=== PATIENT | female | born 1960 | race Caucasian/White ===

== ENCOUNTER → 2018-03-11 12:39 | Outpatient (CLI) | payer OTHER, SELFPAY ==
[2018-03-11 12:43] LABS: Red Blood Cells-Urine 0 SEEN /hpf (0-5); White Blood Cells 0 SEEN /hpf (0-5)
[2018-03-11 15:38] LABS: Color, Urine Yellow (Yellow); Glucose, Dipstick Normal (Normal); Ketone-Dipstick 5 mg/dl (Negative); Leukocyte Esterase-Dipstick Negative /ul (Negative); Nitrite-Dipstick Negative (Negative); Occult Blood-Urine Negative /ul (Negative); Protein-Dipstick 15 mg/dl (Negative); Urine Bilirubin Dipstick Negative (Negative); Urine Clarity Sl. Cloudy (Clear); Urine Urobilinogen Normal (Normal)
[2018-03-11 15:48] LABS: Prothrombin Time (Protime)PT. 13.5 SECONDS (11.7-14.9)
[2018-03-11 15:49] LABS: Partial Thromboplast Time 31.4 Seconds (24.1-36.2)
[2018-03-11 15:56] LABS: Squamous Epithelial Cells - UA 5-10 SEEN /hpf (5-10)
[2018-03-11 15:57] LABS: Bacteria RARE /hpf (None Seen); Hyaline Cast 0 SEEN /lpf (0-5); Mucous, Urine RARE /hpf (<or=2+)
[2018-03-11 15:58] LABS: Absolute Lymphocyte Count 2.25 X10^3/ul (0.83-4.51); Absolute Neutrophil Count 5.3 X10^3/uL (2.0-7.7); Basophil# 0.04 X10^3/uL; Basophil% 0.5 % (0-1); Eosinophil# 0.36 X10^3/uL; Eosinophils% 4.3 % (0-5); Hematocrit 45.3 % (37-47); Hemoglobin 14.8 g/dl (12.0-15.0); Lymphocyte # 2.25 X10^3/ul (4.0); Lymphocyte % 26.7 % (19-41); Mean Corp Hgb Conc 32.7 g/gl (32-36); Mean Corpuscular Hgb 30.3 pg (27.0-32.0); Mean Corpuscular Volume 92.6 fL (81-99); Mean Platelet Vol. 9.7 fl (6.2-12.0); Monocyte# 0.42 X10^3/uL; Neutrophil # 5.33 X10^3/uL (2.7-7.7); Neutrophil % 63.3 % (47-70); POSITIVE COUNT NO; POSITIVE DIFFERENTIAL NO; POSITIVE MORPHOLOGY NO; Platelet Count 284 K/mm3 (150-450); RBC Distribution Width CV 13.7 % (11.6-14.6); RBC Distribution Width SD 46.3 fl (35.1-43.9); Red Blood Count 4.89 M/mm3 (4.2-5.4); White Blood Count 8.4 K/mm3 (4.4-11.0)
[2018-03-11 16:17] LABS: Anion Gap 7 (5-15); BUN 13 mg/dL (7-18); BUN/Creat Ratio 15.4 RATIO (10-20); Calcium,Total 8.8 mg/dL (8.5-10.1); Chloride 108 mmol/L (98-107); Creatinine, Serum 0.85 mg/dL (0.55-1.02); EST Glomerular Filtration Rate 73 mL/min (>60); Est Glom Filt Rate - Afr Amer 88 mL/min (>60); Glucose 110 mg/dL (74-106); Potassium 4.2 mmol/L (3.5-5.1); Sodium Level 142 mmol/L (136-145)
--- OUTSIDE RECORDS SUMMARY | 2018-06-12 22:44 | XMS RPT_ITS ---
:1960 Author Organization OHIP Care Team Providers Name Role Phone Kristyn Lopez Attending Unavailable Kristyn Lopez Primary Care Unavailable NBA CATES Attending Unavailable NBA CATES Consulting Unavailable LIZ ELI Attending Unavailable LIZ ELI Consulting Unavailable KRISTYN LOPEZ Attending Unavailable PROBLEMS PROBLEMS DATE TYPE CONDITION / CODE ATTENDING STATUS SOURCE 03/17/2018 Unknown Z01.818 - Encounter Kristyn Lopez Active [place] for other [facility] preprocedural Hospital examination / Repository Z01.818(ICD-10) 04/29/2017 Admitting Rosanna / Linnette CATES [facility] diagnosis UNK(Unknown) [facility] Repository PROCEDURES PROCEDURES No Procedure Records FoundRESULTS RESULTS URINALYSIS, COMPLETE Collected: 03/11/2018 Status: F Source: [place]KA 12:41 PM [facility] REPOSITORY Order Comment: How was Urine Obtained? CLEAN CATCH TYPE CODE TESTS RESULT OUT OF RANGE REFERENCE UNITS LAB L400.3000 Yellow COLOR Normal Yellow LAB L400.3050 Clear Normal CLARITY Sl. Cloudy LAB L400.3200 Normal mg/dl Normal GLUCOSE, UR Normal LAB L400.3300 Negative mg/dL Normal BILIRUBIN URINE Negative LAB L400.3400 Negative mg/dl High 5 KETONE UR LAB L400.3465 1.002-1.030 Normal SP.GR. DIPSTX 1.020 LAB L400.3550 5.0 - 8.0 pH UR Normal 6.0 LAB L400.3600 Negative mg/dl High PROT 15 DIPSTX LAB L400.3700 Normal mg/dl Normal UROBILI Normal LAB L400.3750 Negative Normal NITRITE UR Negative LAB L400.3780 Negative /ul Normal OCCULT BLOOD-UR Negative LAB L400.3800 Negative /ul LEUK Normal ESTERASE Negative LAB L400.4050 0-5 /hpf WBC 0 Normal SEEN LAB L400.4100 0-5 /hpf 0 Normal RBC-UA SEEN LAB L400.4150 5-10 /hpf SQUAM Normal EPI 5-10 SEEN LAB L400.4300 None Seen /hpf Normal BACTERIA RARE LAB L400.4350 <or=2+ /hpf Normal MUCUS, URINE RARE LAB L400.4400 0-5 /lpf 0 Normal HYALINE CAST SEEN Performed By: #### L400.0001 #### [facility] [address] [place], [address] PROTHROMBIN TIME W/INR Collected: 03/11/2018 Status: F Source: [place] 12:41 PM [facility] REPOSITORY TYPE CODE TESTS RESULT OUT OF RANGE REFERENCE UNITS LAB L300.4150 11.7-14.9 SECONDS Normal PROTIME 13.5 LAB L300.4200 Normal INR 1.0 Performed By: #### L300.3900, L300.4310 #### [facility] [address] [place], [address] PARTIAL THROMBOPLAST Collected: 03/11/2018 Status: F Source: [facility] 12:41 PM [facility] REPOSITORY TYPE CODE TESTS RESULT OUT OF RANGE REFERENCE UNITS LAB L300.4310 24.1-36.2 Seconds Normal PTT 31.4 Performed By: #### L300.3900, L300.4310 #### [facility] [address] [place], [address] CBC W/DIFF, AUTOMATED Collected: 03/11/2018 Status: F Source: [place] 12:41 PM [facility] REPOSITORY TYPE CODE TESTS RESULT OUT OF RANGE REFERENCE UNITS LAB L100.1000 4.4-11.0 K/mm3 Normal WBC 8.4 LAB L100.1200 4.2-5.4 M/mm3 Normal RBC 4.89 LAB L100.1300 12.0-15.0 g/dl Normal HGB 14.8 LAB L100.1400 37-47 % Normal HCT 45.3 LAB L100.1500 81-99 fL Normal MCV 92.6 LAB L100.1600 27.0-32.0 pg Normal MCH 30.3 LAB L100.1700 32-36 g/gl Normal MCHC 32.7 LAB L100.1810 11.6-14.6 % Normal RDW CV 13.7 LAB L100.1820 35.1-43.9 fl High RDW SD 46.3 LAB L100.1900 150-450 K/mm3 Normal PLT 284 LAB L100.2000 6.2-12.0 fl Normal MPV 9.7 LAB L100.2100 47-70 % Normal NEUT% 63.3 LAB L100.2200 19-41 % Normal LY% 26.7 LAB L100.2300 0-10 % Normal MONO% 5.0 LAB L100.2400 0-5 % Normal EO% 4.3 LAB L100.2500 0-1 % Normal BASO% 0.5 LAB L100.2550 0.0-0.9 % Normal IM GRAN % 0.200 Result Comment: IG% - Immature Granulocytes (promyelocytes, myelocytes and metamyelocytes) > 1% indicates that a LEFT SHIFT is Present. LAB L100.2620 2.0-7.7 X10 3/uL Normal Absolute Neut 5.3 LAB L100.2720 0.83-4.51 X10 3/ul Normal Absolute Lymph 2.25 Performed By: #### L100.0100 #### [facility] [address] [place], [address] BASIC METABOLIC Collected: 03/11/2018 Status: F Source: [place] PROFILE ([facility]) 12:41 PM [facility] REPOSITORY TYPE CODE TESTS RESULT OUT OF RANGE REFERENCE UNITS LAB L501.0100 74-106 mg/dL High GLU 110 Result Comment: Fasting Glucose result from 100 to 125 mg/dL suggests IMPAIRED HOMEOSTASIS per A.D.A. criteria. Please note revised GLUCOSE reference range effective 2017. LAB L501.1000 7-18 mg/dL Normal BUN 13 LAB L501.1100 0.55-1.02 mg/dL Normal CREAT,SERUM 0.85 Result Comment: The validity of the calculated GFR AND GFRAA in patients over 70 years has not been determined. Clinical correlation is essential. LAB L501.1110 >60 mL/min Normal EST GFR 73 Result Comment: Non- GFR Calc LAB L501.1115 >60 mL/min Normal EST GFR - AA 88 Result Comment: GFR Calc LAB L501.1300 10-20 RATIO Normal BUN/CRE 15.4 LAB L501.2200 8.5-10.1 mg/dL CA Normal 8.8 LAB L501.5300 136-145 mmol/L NA Normal 142 LAB L501.5600 3.5-5.1 mmol/L K Normal 4.2 LAB L501.5900 98-107 mmol/L High CL 108 LAB L501.6100 21.0-32.0 mmol/L Normal CO2 27.0 LAB L501.6200 5-15 Normal GAP 7 Performed By: #### L500.2500 #### [facility] [address] [place], [address] Observed: 03/11/2018 Status: F Source: [place] CULTURE, URINE 12:41 PM [facility] REPOSITORY Urine Culture ORGANISM 1: Mixed Gram Pos AND Gram Neg Org [place] Count 25,000-50,000 MIX CULTURE Mixed contaminants. Submit a new specimen if indicated. Performed By: #### M100.0650 #### [facility] [address] [place], [address] CBC Collected: 08/22/2017 Status: F Source: [facility] 6:07 PM HOSPITAL REPOSITORY TYPE CODE TESTS RESULT OUT OF RANGE REFERENCE UNITS LAB L200.0100 4.5-10.0 x10(3) Normal WBC 9.7 LAB L200.0200 3.30-5.00 x10(6) Normal RBC 4.76 LAB L200.0210 12.0-16.0 g/dL Normal HGB 15.1 LAB L200.0220 36.0-48.0 % Normal HCT 44.0 LAB L200.0230 80.0-99.0 fl Normal MCV 92.5 LAB L200.0240 28.5-32.9 pg Normal MCH 31.8 LAB L200.0250 33.0-36.0 g/dL Normal MCHC 34.4 LAB L200.0260 12.5-15.7 % Normal RDW 13.7 LAB L200.0270 150-450 X10(3) Normal PLT 283 LAB L200.0290 7.5-9.5 fl Normal MPV 8.2 LAB L200.0300 45.0-73.0 % Normal NEUT% 61.4 LAB L200.0310 16.0-48.0 % Normal LYMPH% 27.7 LAB L200.0320 4.3-11.2 % Normal MONO% 6.4 LAB L200.0330 0.5-4.9 % Normal EOS% 4.3 LAB L200.0340 0.0-1.0 % Normal BASO% 0.2 LAB L200.0350 1.40-6.50 x10(3) Normal NEUT# 5.90 LAB L200.0360 1.00-3.50 x10(3) Normal LYMPH# 2.70 LAB L200.0370 0.30-0.80 x10(3) Normal MONO# 0.60 LAB L200.0380 0.00-0.54 x10(3) Normal EOS# 0.40 LAB L200.0390 0.00-0.10 x10(3) Normal BASO# 0.00 Performed By: #### L200.0010 #### [facility] [address] [place] [address] URINALYSIS Collected: 08/22/2017 Status: F Source: [place] 6:07 PM [facility] REPOSITORY TYPE CODE TESTS RESULT OUT OF RANGE REFERENCE UNITS LAB L200.3010 YELLOW URINE Normal COLOR YELLOW LAB L200.3020 CLEAR URINE Normal APPEARANC CLOUDY LAB L200.3030 NEGATIVE MG/DL URINE Normal GLUCOSE NEGATIVE LAB L200.3050 NEGATIVE URINE Normal BILIRUBIN NEGATIVE LAB L200.3060 NEGATIVE MG/DL URINE Normal KETONE NEGATIVE LAB L200.3070 1.001-1.035 URINE Normal SPECIFIC >=1.030 LAB L200.3080 NEGATIVE URINE Normal BLOOD NEGATIVE LAB L200.3090 5.0-8.0 URINE Normal PH 5.5 LAB L200.3100 NEGATIVE MG/DL URINE Normal PROTEIN NEGATIVE LAB L200.3110 0.2-1.0 EU/DL URINE Normal UROBILINO 0.2 LAB L200.3120 NEGATIVE URINE Normal NITRITE NEGATIVE LAB L200.3130 NEGATIVE URINE Normal LEUKOCYTE NEGATIVE Performed By: #### L200.3000 #### [facility] [address] [place] [address] BMP Collected: 08/22/2017 Status: F Source: [facility] 6:07 PM HOSPITAL REPOSITORY TYPE CODE TESTS RESULT OUT OF RANGE REFERENCE UNITS LAB L100.0060 74-106 mg/dL High GLUCOSE 129 LAB L100.0110 6-20 mg/dL BUN Normal 13 LAB L100.0131 0.50-0.90 mg/dL Normal CREATININE 0.63 LAB L100.0140 8.6-10.0 mg/dL CALCIUM Normal 9.4 LAB L100.0150 135-145 mmol/L SODIUM Normal 141 LAB L100.0160 3.5-5.0 mmol/L Normal POTASSIUM 4.2 LAB L100.0170 98-107 mmol/L CHLORIDE Normal 101 LAB L100.0180 22-29 mmol/L TCO2 Normal 25 LAB L100.0185 15-22 mmol/L ANION Normal GAP 19.2 LAB L100.0274 eGFR Normal nonAFR Hazel > 60 ml/Min/1.73m 2 LAB L100.0275 eGFR if Normal AFR HAZEL > 60 ml/min/1.73m 2 Result Comment: eGFR >= 60 Indicates normal kidney function. * eGFR IS AN ESTIMATE * (AFR HAZEL = ) (non-AFR AM = NON-) MDRD calculation used in the eGFR should not be used to dose medications. For further limitations of the eGFR please refer to the Physician Website or the National Kidney Disease Education Program website (www.nkdep.nih.gov). Performed By: #### L100.0010 #### [facility] [address] [place] [address] PT Collected: 08/22/2017 Status: F Source: [facility] 6:07 PM HOSPITAL REPOSITORY TYPE CODE TESTS RESULT OUT OF RANGE REFERENCE UNITS LAB L200.1612 9.4-12.5 secs Normal PROTIME 11.9 LAB L200.1622 Normal INR 1.1 Result Comment: COUMADIN PROTOCOLS INR values are generated for use in patients on coumadin. INR values stabilize 7 days after the start of coumadin or changes in coumadin dosage. The usual TARGET/INR range is: INDICATION INR RANGE Prophylaxis/treatment of: Venous Thrombosis, Pulmonary Embolism 2.0-3.0 Prevention of systemic embolism from: Tissue heart valves 2.0-3.0 Acute myocardial infarction (to prevent systemic embolism) 2.0-3.0 AMI (to prevent recurrent TN) 2.5-3.5 Valvular heart disease 2.0-3.0 Atrial fibrillation 2.0-3.0 Mechanical prosthetic valves (high risk) 2.5-3.5 Bileaflet mechanical valve in aortic position 2.0-3.0 Presence of Lupus Anticoagulant or Antiphospholipid Antibodies 2.5-3.5 PANIC VALUE: GREATER THAN OR EQUAL TO 4.5 Performed By: #### L200.1602, L200.1642 #### [facility] [address] [place] [address] PTT Collected: 08/22/2017 Status: F Source: [facility] 6:07 PM HOSPITAL REPOSITORY TYPE CODE TESTS RESULT OUT OF RANGE REFERENCE UNITS LAB L200.1642 25.1-36.5 secs Normal PTT 33.2 Result Comment: Heparin Protocol Therapeutic Range = 54.0-90.0 secs Performed By: #### L200.1602, L200.1642 #### [facility] [address] [place] [address] Observed: 08/22/2017 Status: F Source: [facility] 6:07 PM HOSPITAL REPOSITORY ORGANISM 1: NO SIGNIFICANT GROWTH Performed By: #### M120.0100 #### [facility] [address] [place] [address] FCEKG Observed: 08/22/2017 Status: F Source: [facility] 12:00 AM [place] [address] HEALTH INFORMATION MANAGEMENT ELECTROCARDIOGRAM REPORT Patient: REHAN EUGENE Ordering: KRISTYN LOPEZ M.D. [id number] [id number] F Exam Date: 08/22/17 Report #: [id number] Status: REG CLI LAB FC SINUS RHYTHM MILD NON-SPECIFIC T WAVE CHANGES NO PREVIOUS TRACING RATE IS NOW FASTER Physician [employer] Director: KENDALL HICKEY M.D. Ventricular Rate EK /min R-R Interval: 612 ms P Wave duration: 110 ms QRS duration: 105 ms P-R interval: 138 ms Q-T interval: 345 ms Q-T interval (corrected): 404 ms Q-T Dispersion: ms P wave axis: 62 deg QRS axis: 51 deg T axis: 44 deg Signed in [place] 08/23/17 1554 KENDALL HICKEY M.D. cc: << Signature on File>> Reported By: KENDALL HICKEY M.D. Signed By: KENDALL HICKEY M.D. Tests performed at: [address] [id number] PROGRESS Observed: 05/01/2017 Status: COMPLETED Source: [place] 4:18 PM [facility] [place] REPOSITORY HNO ID: [id number] Author: Tesfaye Eli Service: (none) Author Type: Physician Type: Progress Notes Filed: 01/23/2018 2:26 PM Note Text: FIRST CARE DEPARTMENT [address] [place] [address] To Whom This May Concern: REHAN EUGENE has been seen at [facility] on 05/01/17. Please excuse her SCHOOL / WORK obligations due to her ailment for the period indicated below. EXCUSE SLIP Period Covered From Date 05/01/17 Return On 05/03/17 <Electronically signed by RONNY-TESFAYE ELI M.D.> 05/01/17 1619 LIZ ELI M.D. << Signature on File>> Reported By: LIZ ELI M.D. Signed By: LIZ ELI M.D. Tests performed at: [address] [address] PROGRESS Observed: 05/01/2017 Status: COMPLETED Source: [place] 4:12 PM [facility] REPOSITORY HNO ID: [id number] Author: Tesfaye Eli Service: (none) Author Type: Physician Type: Progress Notes Filed: 01/23/2018 2:26 PM Note Text: [facility] [place] [address] FIRST CARE REPORT Patient: REHAN EUGENE LIZ ELI M.D. [id number] [age] F Status: REG POV FC Date of Service: 05/01/17 Report Date AND Time: 05/01/17 1612 HPI History Of Present Illness Chief Complaint Cough (FC) CC History Pt has had a cough, sometimes productive for about 6 days. She did not have a fever, body aches but states that the back of her hair is damp and she interprets that as a fever. The cough is awful and she had a bloody nose yesterday. She was given Zithromax, inhaler and the inhaler really helps. She uses the Bromphed cough syrup that helps somewhat. She has no hx asthma or other pulmonary disease. She feels short of breath with exertion. Vital Signs Repeat pulse ox 94%, pulse 92 BPM Vital Signs First Last Result Date Time Result Date Time Pulse Ox 92 05/01 1556 92 05/01 1556 B/P 127/74 05/01 1556 127/74 05/01 1556 Temp 98.0 05/01 1556 98.0 05/01 1556 Pulse 100 05/01 1556 100 05/01 1556 Resp 20 05/01 1556 20 05/01 155 Medications Active Scripts Prednisone* 0 MG PO DIRECTED Prednisone* 0 MG PO DIRECTED #30 TAB Prov: 04/29/17 Albuterol Sulf Hfa 90 mcg/actuation (Proair Hfa) 1 PUFF IH Q4HPRN PRN SHORTNESS OF BREATH Albuterol Sulf Hfa 90 mcg/actuation (Proair Hfa) 1 PUFF IH Q4HPRN PRN SHORTNESS OF BREATH #1 INH Prov: 04/29/17 Bpm/Dm/Pse HCl (Bromfed Dm Cough 473 Ml) 10 ML PO Q4-6HPRN PRN cough Bpm/Dm/Pse HCl (Bromfed Dm Cough 473 Ml) 10 ML PO Q4-6HPRN PRN cough #300 ML Prov: 04/29/17 Discontinued Scripts Azithromycin* (Zithromax*) 250 MG PO ONCE Azithromycin* (Zithromax*) 250 MG PO ONCE #4 TAB Prov: 04/29/17 DC: 05/01/17 1555 No Reason Given Azithromycin (Z-isabel) (Zithromax (Z-isabel)) 250 MG PO QDAY Azithromycin (Z-isabel) (Zithromax (Z-isabel)) 250 MG PO QDAY #6 TAB Prov: 03/26/17 DC: 04/29/17 1542 Not on Medication Prednisone* 20 MG PO BIDF Prednisone* 20 MG PO BIDF #10 TAB Prov: 03/26/17 DC: 04/29/17 1542 Not on Medication Bpm/Dm/Pse HCl (Bromfed Dm Cough 473 Ml) 10 ML PO Q4-6HPRN PRN COUGH OR CONGESTION Bpm/Dm/Pse HCl (Bromfed Dm Cough 473 Ml) 10 ML PO Q4-6HPRN PRN COUGH OR CONGESTION #300 ML Prov: 03/26/17 DC: 04/29/17 1542 Not on Medication Reported Medications Duloxetine* Hcl (Cymbalta*) Allergies Coded Allergies: No Known Drug Allergies (05/01/17) Patient Health History Medical Problems Acute bronchitis Depression URI with cough and congestion Surgical Problems No pertinent past surgical history Family History Problems FH: throat cancer Social History Problems Current non-drinker of alcohol Nonsmoker OARRS Accessed and Reviewed NO LNMP: NA Review of Systems General Other (damp back of hair). Denies: Body Aches, Fever, Chills. Head Denies: Headaches. Throat Denies: Sore Throat (she had one, now gone). Heart/Cardiovascular Denies: Chest Pain. Respiratory Cough, Productive, Dyspnea w/excertion. Gastrointestinal Denies: Nausea, Vomiting. Physical Examination General Alert, Non-toxic Apperance Skin [place], Warm, and Dry, Well Hydrated, No Pathology Noted Head Normocephalic Ears Normal Tympanic Membranes, No Redness, No Fluids, No Bulging Noted Nose No Nasal Discharge Mouth Mouth pink/wet Throat Uvula Midline Non-Edema, Unremarkable Neck Neck Supple, No Mennigitis Symptoms, No Cervical Adenopathy Heart/Cardiovascular Regular Rate and Rhythm Respiratory Lungs Are Clear, No Wheezes, No Rhonchi Noted, harsh moist cough Impression And Plan Discharge Instructions Increase Liquids, Cough/Drainage - 3-8wks Special Instructions o Follow up with your Primary Care Physician in 2-3 days if no improvement in your condition. Use inhaler as needed every 4 hours. If you develop measured fever >100.7, if shortness of breath worsens, if you develop chest pain please get re-checked in Emergency. o Call or return to [facility] if you experience problems relating to your visit. All medications and their side effects were explained to the patient and were understood. At home instructions were explained to the patient and were understood. Report to the [facility] Emergency Department if any further problems occur Or Call [phone]. Diagnosis 1. Acute bronchitis *Prescriptions Prescriptions (FC) Medication Dose/Rte/Freq Days Qty Entered Max Daily Dose Azithromycin* (Zithromax*) 500 MG PO 6 05/01/17 Strength: 250 MG TAB DIRECTED 1609 Benzonatate* (Tessalon*) 100 MG PO 30 05/01/17 Strength: 100 MG CAP Q8H PRN COUGH 1609 Prednisone* 20 MG PO BID 10 05/01/17 Strength: 20 MG TAB 1609 <Electronically signed by LIZ ELI M.D.> 05/01/17 1618 LIZ ELI M.D. << Signature on File>> Reported By: LIZ ELI M.D. Signed By: LIZ ELI M.D. Tests performed at: [address] [address] PROGRESS Observed: 04/29/2017 Status: COMPLETED Source: [place] 4:27 PM [facility] REPOSITORY HNO ID: [id number] Author: Adrienne Raygoza (Merchandising Specialist) Eduardo White MD Service: (none) Author Type: Nurse Practitioner Type: Progress Notes Filed: 01/23/2018 2:22 PM Note Text: FIRST CARE DEPARTMENT [address] [place] [address] To Whom This May Concern: REHAN EUGENE has been seen at [facility] on 04/29/17. Please excuse her SCHOOL / WORK obligations due to her ailment for the period indicated below. EXCUSE SLIP Period Covered Today 04/29/17 Return On 05/01/17 <Electronically signed by Fly LUJANNKenP.> 04/29/17 1627 JEISON DELGADO.N.P. << Signature on File>> Reported By: JEISON DELGADO.N.PKen Signed By: JEISON DELGADO.NKenPKen Tests performed at: [place] [address] PROGRESS Observed: 04/29/2017 Status: COMPLETED Source: [place] 4:03 PM [facility] REPOSITORY HNO ID: [id number] Author: Provider [facility] Service: (none) Author Type: Physician Type: Progress Notes Filed: 01/23/2018 2:22 PM Note Text: [facility] [place] [address] [facility] RE[facility] Patient: REHAN EUGENE,NBA Dan F.N.P. [id number] [age] F Status: REG POV FC Date of Service: 04/29/17 Report Date AND Time: 04/29/17 1603 HPI History Of Present Illness Chief Complaint Upper Resp Congestion (FC) CC History Pt comes in today stating for the past 4-5 days she has had a deep cough, shortness of breath, hot/cold flashes, but no fevers, headache, achy, and fatigued. states she has taken dayquil, and tylenol. Vital Signs Vital Signs First Last Result Date Time Result Date Time Pulse Ox 93 04/29 1538 93 04/29 1538 B/P 134/74 04/29 1538 134/74 04/29 1538 Temp 98.6 04/298 98.6 04/29 153 Pulse 108 04/29 1538 108 04/29 1538 Resp 28 04/29 1538 28 04/29 153 Medications Discontinued Scripts Azithromycin (Z-isabel) (Zithromax (Z-isabel)) 250 MG PO QDAY Azithromycin (Z-isabel) (Zithromax (Z-isabel)) 250 MG PO QDAY #6 TAB Prov: 03/26/17 DC: 04/29/17 1542 Not on Medication Prednisone* 20 MG PO BIDF Prednisone* 20 MG PO BIDF #10 TAB Prov: 03/26/17 DC: 04/29/17 1542 Not on Medication Bpm/Dm/Pse HCl (Bromfed Dm Cough 473 Ml) 10 ML PO Q4-6HPRN PRN COUGH OR CONGESTION Bpm/Dm/Pse HCl (Bromfed Dm Cough 473 Ml) 10 ML PO Q4-6HPRN PRN COUGH OR CONGESTION #300 ML Prov: 03/26/17 DC: 04/29/17 1542 Not on Medication Reported Medications Duloxetine* Hcl (Cymbalta*) Allergies Coded Allergies: No Known Drug Allergies (03/26/17) Patient Health History Medical Problems Acute bronchitis Depression URI with cough and congestion Surgical Problems No pertinent past surgical history Family History Problems FH: throat cancer Social History Problems Current non-drinker of alcohol Nonsmoker OARRS Accessed and Reviewed NO Review of Systems General Body Aches, Fatigue. Denies: Fever, Chills. Skin No: Rash. Head Headaches. Eyes Denies: Eye Irritation. Ear Denies: Ear Pain. Nose Denies: Nasal Congestion. Mouth No: Sore Lesions in the Mouth. Throat Denies: Sore Throat, Scratchy. Neck Denies: Neck Pain. Heart/Cardiovascular Denies: Chest Pain. Respiratory Cough, Dyspnea. Denies: Wheezing. Physical Examination General Alert, Oriented X3, Cooperative Skin [place], Warm, and Dry, Well Hydrated Head Normocephalic Eyes PERRL Ears Normal Tympanic Membranes Nose No Nasal Discharge, Mucosa [place], Septum Midline Mouth Mouth pink/wet Throat Uvula Midline Non-Edema, Unremarkable Neck No Mennigitis Symptoms, No Cervical Adenopathy Heart/Cardiovascular Regular Rate and Rhythm, Normal S-1, S-2 Respiratory Pt Speaking Full Sentence, No Accessory Muscle Use, No Rhonchi Noted, very deep sounding cough, visibly short of breath after coughing fit. fine expiratory wheezing heard at bases. RT Breating Treatment RT Breathing Tx Given Yes Breathing Tx Condition Imporved, lungs clear throughout Impression And Plan Discharge Instructions Increase Liquids, Tylenol every 4 hrs, Motrin every 6 hrs, Warm Liquids (tea/soup), Honey cough relief, Nasal saline drops, Cough/Drainage - 3-8wks, Salt water gargle 3-4xday, Finish entire antibiotic Special Instructions o Follow up with your Primary Care Physician in 5-7 days if no improvement in your condition. o Call or return to [facility] if you experience problems relating to your visit. Drink lots and lots of fluids Take Mucinex DM max strength 1200mg twice a day until symptoms gone For nasal congestion/ear fullness: Flonase twice a day until symptoms gone For sore throat/cough: gargle with salt water, hot tea and honey, cool mist vaporizer, and cough drops For sinus pressure/congestion: Use a nasal saline rinse (netti pot/squeeze bottle) couple times a day Cough/drainage can linger up to 6 weeks All medications and their side effects were explained to the patient and were understood. At home instructions were explained to the patient and were understood. Report to the [facility] Emergency Department if any further problems occur Or Call . Diagnosis 1. URI with cough and congestion *Prescriptions Prescriptions (FC) Medication Dose/Rte/Freq Days Qty Entered Max Daily Dose Prednisone* 0 MG PO 30 04/29/17 Strength: 10 MG TAB DIRECTED 1614 Azithromycin* (Zithromax*) 250 MG PO ONCE 4 04/29/17 Strength: 250 MG TAB 1614 Albuterol Sulf Hfa 90 1 PUFF IH 1 04/29/17 mcg/actuation Q4HPRN PRN 1614 (Proair Hfa) SHORTNESS OF Strength: 8.5 GM HFA.AER.AD BREATH Bpm/Dm/Pse HCl 10 ML PO 300 04/29/17 (Bromfed Dm Cough 473 Ml) Q4-6HPRN PRN cough 1619 Strength: 473 ML SYR <Electronically signed by NBA CATES FKenN.P.> 04/29/17 1620 NBA CATESNKenPKen << Signature on File>> Reported By: NBA CATESNKenPKen Signed By: NBA CATESNKely Tests performed at: [place] [address] ALLERGIES ALLERGIES DATE TYPE / CODE NAME / CODE REACTION SEVERITY SOURCE 07/27/2016 Drug No Known Unknown [facility] Allergy/4160 Allergies/F00 Hospital 37513(SNOMED [id number](RXNOR Repository CT) M) ENCOUNTERS ENCOUNTERS ADMIT/DISCHARGE ACCOUNT ADMITTING ENCOUNTER LOCATION SOURCE NUMBER CLASS 03/11/2018 [id number] Ambulatory [facility] ing:BFHLAB Repository 08/22/2017 [id number] Ambulatory UNIBuilding:L [address] Repository 05/01/2017 [id number] Ambulatory UNIBuilding:F [address] Repository 04/29/2017 [id number] Ambulatory UNIBuilding:F [address] Repository PAYERS PAYERS ENCOUNTER GUARANTOR PAYER SUBSCRIBER SOURCE 03/11/2018 REHAN L Primary REHAN L [facility] [id number] [place] Insurance:AULTCAREPol MCQUEENDOB: [facility] Number: [id number] [address]Nkk: [id number] Repository e Date:[id number] ([facility] [address] [address]SJ: 03/11/2018 Secondary NOT GIVENUNK Vika Insurance:SELF PAY [place] [facility] Number: Effective Repository Date:2018-03-11 08/22/2017 [facility] [id number] [place]ERNA[place] Insurance:[facility], icy Number: Repository [place] [id number]: [id number] e Date: (HP) 05/01/2017 [facility] [id number] [place]ER[place] Insurance:[facility], icy Number: Repository [place] [id number]: [id number] e Date: (HP) 04/29/2017 [facility]508 [place] Insurance:[facility], icy Number: Repository [place] [id number]: [id number] e Date: (HP)
== END ==
PROVIDERS: Family Provider Family Medicine; PCP Family Medicine; Visit Provider Family Medicine
DX: Z01.818 Encounter for other preprocedural examination (principal)
CPT/HCPCS: 36415; 80048; 81001; 85025; 85610; 85730; 87086; 87088

== ENCOUNTER → 2024-09-24 | Outpatient (CLI) | payer MEDICARE, SELFPAY ==
[2024-09-24 15:39] LABS: Hematocrit 46.6 % (37-47); Hemoglobin 15.1 g/dL (12.0-15.0); Immature Granulocytes Count 0.040 X10^3/uL (0.0-0.0); Mean Corp Hgb Conc 32.4 g/dL (32-36); Mean Corpuscular Volume 93.4 fL (81-99); Mean Platelet Vol. 9.7 fl (6.2-12.0); NRBC Flagged by Analyzer 0 % (0-5); Platelet Count 246 K/mm3 (150-450); RBC Distribution Width CV 14.1 % (11.6-14.6); RBC Distribution Width SD 47.7 fl (35.1-43.9); Red Blood Count 4.99 M/mm3 (4.2-5.4); White Blood Count 8.9 K/mm3 (4.4-11.0)
[2024-09-24 16:14] LABS: AST(SGOT) 27 U/L (<=31); Alanine Aminotransfer ALT/SGPT 23 U/L (<=34); Albumin, Serum 4.0 g/dL (3.4-4.8); Alkaline Phosphatase 130 U/L (35-104); Anion Gap 13 (5-15); BUN 12 mg/dL (4-19); BUN/Creat Ratio 14.8 RATIO (10-20); Calcium,Total 9.3 mg/dL (7.6-11.0); Carbon Dioxide 25.3 mmol/L (21.0-32.0); Chloride 103 mmol/L (98-108); Cholesterol 204 mg/dL (<=200); Globulin 3.3 g/dL (2.2-4.2); Glucose 93 mg/dL (70-99); Low Density Lipoprotein Calc. 131 mg/dL; Potassium 4.4 mmol/L (3.3-5.1); Triglycerides 103 mg/dL; Very Low Density Lipoprotein 21 mg/dL (5-40); cholesterol:hdl ratio screen 3.90
[2024-09-24 17:09] LABS: Creatinine, Urine (random) 38.70 mg/dL (28.00-217.00); Microalbumin,Random Urine < 12.0 mg/L (NO RANGE EST.)
--- OUTSIDE RECORDS SUMMARY | 2024-09-24 23:11 | XMS RPT_ITS | CCD ---
Author Organization [facility] Care Team Providers Care Graphic Coordinator Name Role Phone Miedel, Kristyn Unavailable Unavailable Miedel, Kristyn Unavailable Unavailable HENRYEL, KRISTYN Attending Unavailable MIEDEL, KRISTYN Consulting Unavailable MIEDEL, KRISTYN Primary Care Unavailable MIEDEL, KRISTYN Admitting Unavailable PROVIDER, UNKNOWN Consulting Unavailable PROVIDER, UNKNOWN Consulting Unavailable Unavailable Primary Care Provider Unavailabl e Unavailable Primary Care Provider Unavailyuridia e KRISTYN LOPEZ Attending Unavailable Unavailable Primary Care Provider Unavailyuridia e JESSICA KRISTYN Primary Care Physician JESSICA, KRISTYN Primary Care Unavailable [facility] Attending Deannava ilgabriel LOPEZ KRISTYN Primary Care Unavailable [facility] Attending Unava ilable JESSICA KRISTYN Primary Care Unavailable [facility] Attending Unadale ilKRISTYN Howard Primary Care Unavailable [facility] Attending Unava ilable Kristyn Lopez MD Primary Care Provider JOSIAS SKINNER Attending Unavaila ble SONA BRUNO Attending Unavailable CHANTAL YOUNG Referring Unavailable MIEDEL, KRISTYN E Primary Care Unavailable CHANTAL YOUNG Attending Unavailable CHANTAL YOUNG Referring Unavailable MIEDEL, KRISTYN E Primary Care Unavailable SONA BRUNO Attending Unavailable JESSICA, KRISTYN E Primary Care Unavailable SONA BRUNO Attending Unavailable JESSICA, KRISTYN E Primary Care Unavailable MIEDEL, KRISTYN E Primary Care Unavailable NORA DE LA CRUZ Attending Unavailab le MIEDEL, KRISTYN E Primary Care Unavailable Medications Current Medications Medication Drug Class(es) Dates Sig (Normalized) Sig (Original) aspirin 81 mg oral tablet (3 sources) Platelet Aggregation Inhibitor, Nonsteroidal Anti-inflammatory Drug Start: 12-30-2009 take 1 dose by mouth once daily aspirin Dose : 81 mg =, PO, Daily, 0 Refill(s), current med (Hx) Start Date: 12/30/09 Status: Ordered celecoxib 200 mg oral capsule (10 sources) Nonsteroidal Anti-inflammatory Drug Start: 07-11-2023 CeleBREX 200 mg oral capsule Dose : 200 mg = 1 cap(s), Oral, qDay, # 30 cap(s), 0 Refill(s) Start Date: 07/11/23 Status: Ordered DULoxetine 60 mg delayed release oral capsule (15 sources) Serotonin and Norepinephrine Reuptake Inhibitor Start: 07-11-2023 Cymbalta 60 mg oral delayed release capsule Dose : 60 mg = 1 cap(s), Oral, qDay, 0 Refill(s) Start Date: 07/11/23 Status: Ordered take 1 capsule by mouth twice da urbano DULoxetine (CYMBALTA) 20 mg capsule Take 20 mg by mouth twice daily. Active Comment on above: Take 20 mg by mouth twice daily. 24 hr mirabegron 50 mg extended release oral tablet (4 sources) beta3-Adrenergic Agonist Start: 08-26-2023 End: 10-25-2023 Myrbetriq 50 mg oral tablet, extended release Dose : 50 mg = 1 tab(s), Oral, qDay, # 30 tab(s), 1 Refill(s), Pharmacy: [id number], 160, cm, 08/26/23 14:17:00 EDT, Height, kg, 08/26/23 14:17:00 EDT, Dosing Weight Start Date: 08/26/23 Stop Date: 10/25/23 Status: Ordered Start: 07-11-2023 End: 09-09-2023 Myrbetriq 25 mg oral tablet, extended release Dose : 25 mg = 1 tab(s), Oral, qDay, # 30 tab(s), 1 Refill(s), Pharmacy: [id number], 163, cm, 07/11/23 13:06:00 EDT, Height, kg, 07/11/23 13:06:00 EDT, Dosing Weight Start Date: 07/11/23 Stop Date: 09/09/23 Status: Ordered naproxen sodium 220 mg oral tablet (3 sources) Nonsteroidal Anti-inflammatory Drug Start: 02-24-2008 take 1 dose by mouth every eight hours as needed for pain Aleve Dose : 220 mg =, PO, q8hr, PRN as needed for pain, 0 Refill(s), current med (Hx) Start Date: 02/24/08 Status: Ordered oxybutynin chloride 5 mg oral tablet (4 sources) Cholinergic Muscarinic Antagonist Start: 08-07-2024 take 1 tablet by mouth three times daily oxybutynin (DITROPAN) 5 mg tablet Indications: Urinary incontinence, mixed Take 1 tablet by mouth three times a day. 90 tablet 5 08/07/2024 Active predniSONE 20 mg oral tablet (12 sources) Start: 12-16-2021 take 1 tablet by mouth twice daily predniSONE (DELTASONE) 20 mg tablet Indications: Acute midline low back pain with bilateral sciatica Take 1 tablet by mouth twice daily. 10 tablet 12/16/2021 Active Comment on above: Take 1 tablet by chato twice daily. sulfamethoxazole 800 mg / trimethoprim 160 mg oral tablet (1 source) Dihydrofolate Reductase Inhibitor Antibacterial, Sulfonamide Antimicrobial Start: 07-11-2023 End: 07-21-2023 take 1 tablet by mouth twice daily Bactrim DS 800 mg-160 mg oral tablet Dose = 1 tab(s), Oral, BID, X 10 day(s), # 20 tab(s), 0 Refill(s), Pharmacy: [id number], 163, cm, 07/11/23 13:06:00 EDT, Height, 126.7, kg, 07/11/23 13:06:00 EDT, Dosing Weight Start Date: 07/11/23 Stop Date: 07/21/23 Status: Ordered tiZANidine 4 mg oral tablet (12 sources) Central alpha-2 Adrenergic Agonist Start: 12-16-2021 take 1 tablet by mouth three times daily tiZANidine (ZANAFLEX) 4 mg tablet Indications: Acute midline low back pain with bilateral sciatica Take 1 tablet by mouth three times daily. 9 tablet 12/16/2021 Active Comment on above: Take [address] [facility] three times daily. Completed/Discontinued Medications Medication Drug Class(es) Dates Sig (Normalized) Sig (Original) cephalexin 500 mg oral capsule (5 sources) Cephalosporin Antibacterial Start: 09-03-2024 End: 09-03-2024 cephALEXin 500 mg cap(s) (KEFLEX) Start: 09-03-2024 End: 09-03-2024 take 1 dose by mouth once 500 mg, ORAL, ONCE, 1 dose, On Annette 09/03/24 at 0000, Antimicrobial indication: Prophylaxis Start: 07-24-2024 End: 07-24-2024 take 1 capsule by mouth twice daily cephALEXin (KEFLEX) 500 mg capsule Indications: Urinary incontinence, mixed Take 1 capsule by mouth two times a day for 3 doses. 3 capsule 07/24/2024 07/24/2024 Discontinued Start: 07-24-2024 End: 07-24-2024 take 1 dose by mouth every 30 days 500 mg, ORAL, ONCE (UP TO 30 DAYS AMB), 1 dose, On Sat07/24/24 at 1100, Prior to HOPS procedure, Antimicrobial indication: Prophylaxis lidocaine hydrochloride 0.02 mg/mg topical gel (2 sources) Antiarrhythmic, Amide Local Anesthetic Start: 09-03-2024 End: 09-04-2024 lidocaine urojet 2 % 6 mL topical gel (GLYDO) Start: 09-03-2024 End: 09-04-2024 6 mL, URETHRAL, ONCE (UP TO 30 DAYS AMB), 1 dose, On Annette 09/03/24 at 0000 sodium chloride 0.154 meq/ml irrigation solution (2 sources) Start: 07-24-2024 End: 07-24-2024 NaCl 0.9% irrigation solutio n Start: 07-24-2024 End: 07-24-2024 250 mL, IRRIGATION, ONCE, 1 dose, On Sat07/24/24 at 0900 Problems Active Problems Problem Classification Problem Date Documented Da te Episodic/Chronic Calculus of urinary tract (2 sources) Personal history of urinary calculi; Translations: [Personal history of urinary calculi] Onset: 07-11-2023 Episodic Genitourinary symptoms and ill-defined conditions (16 sources) Unspecified urinary incontinence; Translations: [Incontinence] Onset: 07-11-2023 Chronic Genitourinary symptoms and ill-defined conditions (10 sources) Nocturia; Translations: [Nocturia] Onset: 08-07-2024 07-07-2024 Episodic Other screening for suspected conditions (not mental disorders or infectious disease) (2 sources) Patient encounter status; Translations: [Encounter for screening for malignant neoplasm of cervix] Onset: 06-23-2024 06-23-2024 Episodic Past or Other Problems Problem Classification Problem Date Documented Da te Episodic/Chronic Other lower respiratory disease (1 source) Pleurodynia; Translations: [Pleurodynia] Onset: 04-27-2024 Episodic Other nervous system disorders (1 source) Paresthesia of skin; Translations: [Paresthesias] Onset: 04-27-2024 Episodic Spondylosis; intervertebral disc disorders; other back problems (3 sources) Acute back pain with sciatica; Translations: [Lumbago with sciatica, left side] Onset: 04-27-2024 Episodic Unclassified (1 source) E11.9 Onset: 07-18-2022 Urinary tract infections (3 sources) Urinary tract infection, site not specified; Translations: [Acute cystitis without hematuria] Onset: 07-11-2023 Episodic Results Test Name Value Interpretation Reference Range Facility [facility] 09-03-2024 CNOV Office Visit (URCANT ) REHAN EUGENE ([id number]) 1960 F Date Time Provider Department 09/03/24 2:30 PM URODYNAMICS [facility] During your visit today, we recorded the following information about you: Shreyas Montiel, RN 09/04/2024 12:45 PM Addendum Patient here for a Urodynamic study. Patient was explained the procedure in detail. She agreed to proceed. Denies s/sx of UTI. Urine dip was negative for infection. The patient was laid back in the UDS chair and all catheters and leads were placed per protocol, one in the rectum and one in the urethra. Hooked the patient up to the ROAM monitor, catheters connected and charged. While laying back the pressures were reading for approximately 10 seconds, and then the pVES and pABD graphing dropped to 0 and were not reading appropriately. I attempted to trouble shoot the machine with repositioning the catheters, opening and recharging with no success. The equipment/software is Laborie. At that time, I made the patient aware that I am having equipment/software issues, and that we will have to reschedule the test if she is willing. I apologized to the patient for the inconvenience. The patient was very understanding and we rescheduled her for 09/17/24 at 1 pm. Administrative Assistant offered: Patient declines. Shreyas Montiel RN Allergies As of Date: 09/03/2024 (No Known Allergies) Date Reviewed: 08/07/2024 Reviewed by: Ly Gonzales - Fully Assessed Primary Visit Diagnosis:Urinary incontinence, mixed [N39.46] Other Visit Diagnosis:Nocturia [R35.1] Order(s):lidocaine urojet 2 % 6 mL topical gel (GLYDO)Disp: Rfl: [] cephALEXin 500 mg cap(s) (KEFLEX)Disp: Rfl: Prescriptions as of 09/04/2024 - oxybutynin (DITROPAN) 5 mg tablet Take 1 tablet by mouth three times a day. - celecoxib (CELEBREX) 200 mg capsule Take 200 mg by mouth once daily. - DULoxetine (CYMBALTA) 20 mg capsule Take 20 mg by mouth twice daily. - tiZANidine (ZANAFLEX) 4 mg tablet Take 1 tablet by mouth three times daily. - predniSONE (DELTASONE) 20 mg tablet Take 1 tablet by mouth twice daily. Facility-Administered Medications as of 09/04/2024 - lidocaine urojet 2 % 6 mL topical gel (GLYDO) (Completed) Problem List As Of Date: 09/03/2024 (None) Prescriptions ordered this encounter Disp Refills Start End LIDOCAINE 2 % MUCOSAL JELLY IN APPLI* 09/03/2024 09/04/2024 Route: URETHRAL CEPHALEXIN 500 MG CAPSULE 09/03/2024 09/03/2024 Route: PO Encounter Status:Closed by SHREYAS MONTIEL on 09/04/24 [facility] CNCOon 08-21-2024 CNCO Letter Text [facility] CNCOon 08-12-2024 CNCO Letter Text [facility] CNPNon 08-09-2024 CNPN Telephone (UROUPD) REHAN EUGENE ([id number]) 1960 F Date Time Provider Department 08/09/24 SONA BRUNO UROUPD During your visit today, we recorded the following information about you: Sona Bruno DO 08/09/2024 11:15 PM Signed Good evening, Forwarding for referral for pessary fitting for 64 yo F with significant BRENNA , also managing her frequency/urgency with oxybutynin that was started 08/07/24 (she has some voiding dysfunction so also ordering UDS at [facility]) DO Priti Alfaro Christine 08/11/2024 9:31 AM Signed Left message for patient to call and schedule pessary fitting appointment with Aliyah Escobar. Thank you, Ivonne Yen 08/21/2024 11:38 AM Signed LM for patient to call and schedule pessary fitting with Aliyah Escobar. Thank you, Ivonne Yen 08/26/2024 9:30 AM Signed Patient called back today 08/26/24 stating she does not want to move forward with the pessary. Thank you, Ivonne Allergies As of Date: 08/09/2024 (No Known Allergies) Date Reviewed: 08/07/2024 Reviewed by: Ly Gonzales - Fully Assessed Reason for Visit: Patient Update [1234] Prescriptions as of 08/26/2024 - oxybutynin (DITROPAN) 5 mg tablet Take 1 tablet by mouth three times a day. - celecoxib (CELEBREX) 200 mg capsule Take 200 mg by mouth once daily. - DULoxetine (CYMBALTA) 20 mg capsule Take 20 mg by mouth twice daily. - tiZANidine (ZANAFLEX) 4 mg tablet Take 1 tablet by mouth three times daily. - predniSONE (DELTASONE) 20 mg tablet Take 1 tablet by mouth twice daily. Problem List As Of Date: 08/09/2024 (None) Encounter Status:Closed by SONA BRUNO on 08/09/24 [facility] CNPN Telephone (UROUPD) REHAN EUGENE ([id number]) 1960 F Date Time Provider Department 08/09/24 SONA BRUNO UROUPD During your visit today, we recorded the following information about you: Sona Bruno DO 08/09/2024 11:16 PM Signed Please schedule for UDS at [facility] in August if possible , office follow up with me ~2 weeks after thank yo DO Ari Alfaro Stephanie 08/10/2024 2:33 PM Signed Left message 08/10/24 to schedule. Caroline Chapman 08/11/2024 10:28 AM Signed Left message 08/11/24 to schedule. Caroline Chapman 08/12/2024 10:33 AM Signed Left message 08/12/24, mailing letter today. Caroline Chapman 08/21/2024 9:32 AM Signed Patient called the office to schedule, She is on 09/03 for the UDS and 09/09 for the follow up. Patient was not sure what the UDS was, I asked Shreyas to call her and explain the procedure to the patient. I mailed out appointment reminder and UDS instructions 08/21/24. Shreyas Montiel, RN 08/21/2024 3:41 PM Signed Attempted to call patient. No answer. Left message to call the office. JEAN-PAUL Proctor Tracey L, RN 08/24/2024 11:16 AM Signed Attempted to reach patient to go over UDS. No answer. Left message to call the office and speak with me. Shreyas Montiel RN Allergies As of Date: 08/09/2024 (No Known Allergies) Date Reviewed: 08/07/2024 Reviewed by: Ly Gonzales - Fully Assessed Prescriptions as of 08/24/2024 - oxybutynin (DITROPAN) 5 mg tablet Take 1 tablet by mouth three times a day. - celecoxib (CELEBREX) 200 mg capsule Take 200 mg by mouth once daily. - DULoxetine (CYMBALTA) 20 mg capsule Take 20 mg by mouth twice daily. - tiZANidine (ZANAFLEX) 4 mg tablet Take 1 tablet by mouth three times daily. - predniSONE (DELTASONE) 20 mg tablet Take 1 tablet by mouth twice daily. Problem List As Of Date: 08/09/2024 (None) Encounter Status:Closed by SONA BRUNO on 08/09/24 [facility] CNOVon 08-07-2024 [facility] Office Visit (URUN) REHAN EUGENE ([id number]) 1960 F Date Time Provider Department 08/07/24 8:00 AM SONA BRUNO URJOYCE During your visit today, we recorded the following information about you: Pulse Blood pressure 79/minute 114/76 Sona Bruno DO 08/09/2024 11:18 PM Signed [facility] ESTABLISHED PATIENT NOTE/HISTORY AND PHYSICAL PATIENT: Rehan Eugene (64 year old) PCP: Kristyn Lopez MD DATE OF SERVICE: 08/07/2024 SUBJECTIVE: CHIEF COMPLAINT: Follow Up (Patient has no new complaints and states that she did complete diary. ) HISTORY OF PRESENT ILLNESS: Recording using [employer] software for draft documentation of the visit was discussed with the patient/authorized employment representative; all questions welcomed and answered. Patient/authorized employment representative agreed to proceed The patient was last seen by Sona Bruno DO on 07/24/24 . Prior notes were reviewed. Patient returns today for follow up . In interim doing ok , has no new complaints ; here for cysto/Uroflow results. Most bothered by the erica of urine . Review of Symptoms: Genitourinary: See HPI Constitutional: unintentional weight loss - denies, fevers - denies Cardiovascular: new or worsening chest pain - denies Respiratory: new or worsening shortness of breath - denies Gastrointestinal: constipation - denies, vomiting - denies Hematologic/Lymphatic: easy bleeding or bruising - denies Past Medical History: -Patient has a past medical history of Arthritis and Asthma (HCC). Past Surgical History: -Patient has a past surgical history that includes knee surgery hx (Bilateral). Medications: -Patient has a current medication list which includes the following prescription(s): oxybutynin, celecoxib, duloxetine, tizanidine, and prednisone. Allergies: -Patient has no known allergies. Family History: -Patient family history includes Cancer in her father. Social History: -Patient reports that she has never smoked. She has never used smokeless tobacco. She reports that she does not currently use alcohol. She reports current drug use. Drug: Marijuana. I have confirmed and edited as necessary, the PFSH and ROS obtained by others. OBJECTIVE: PHYSICAL EXAMINATION: BP 114/76 Pulse 79 LMP (LMP Unknown) SpO2 91% Constitutional: Non-toxic , No acute distress. Psych: Calm, cooperative Eyes: Lids appear normal. Conjunctivae are not injected. Respiratory: No acute respiratory distress. No audible wheeze. : No [place] DATA: Clinic: Urine dipstick shows: URINALYSIS: GLUCOSE UA (POCT) Negative 07/07/2024 BILIRUBIN UA (POCT) Negative 07/07/2024 KETONE UA (POCT) Negative 07/07/2024 SPECIFIC GRAVITY UA (POCT) >=1.030 07/07/2024 HEMOGLOBIN/BLOOD UA (POCT) Negative 07/07/2024 PH UA (POCT) 6.0 07/07/2024 PROTEIN UA (POCT) Trace 07/07/2024 UROBILINOGEN UA (POCT) 0.2 07/07/2024 NITRITE UA (POCT) Negative 07/07/2024 LEUKOCYTES UA (POCT) Negative 07/07/2024 COLOR UA (POCT) Yellow 07/07/2024 CLARITY UA (POCT) Clear 07/07/2024 Laboratory: Creatinine Date Value Ref Range Status 04/27/2024 0.79 0.58 - 0.96 mg/dL Final 10/31/2023 0.88 0.58 - 0.96 mg/dL Final 07/17/2023 0.89 0.58 - 0.96 mg/dL Final 07/18/2022 0.84 0.50 - 0.90 mg/dL Final Cultures: No data to display Susceptibility Tests - Past 1 Year No results found for the last 365 days. ASSESSMENT AND PLAN Rehan Eugene is 64 year old with: (N39.46) Urinary incontinence, mixed (primary encounter diagnosis) (R35.1) Nocturia (N39.44) Nocturnal enuresis (Z87.440) History of UTI Medical records personally reviewed and found significant for: PAP As background copied from prior notes, changes made: 64 yo F with chronic stable DEVNATE, reporting BRENNA = UUI, frequency, urgency, nocturia x6-7, nocturnal enuresis. Wears 3ppd. Saw [facility] recommended sling then, not done 2/2 insurance issues. Significant bother and worsening in past year especially . Had remote UTIs . Cr WNL 2024 Given bladder diary /hat. Returned and voids in daytime q10-270 min, nocturia x4 on this diary. Total UOP less accurate as she leaked before reaching toilet. Had strong urge and changing underwear/pads mulitple times/day. Cysto/pelvic, unable do full pelvic given difficulty positioning but on cysto, small capacity, strong urge after only filling to ~150cc and big leak with cough, Uroflow intermittent/saw tooth with good qmax, empties well . Given abnormal , potentially dysfunctional voiding, recommended UDS. She was eager for therapies for her sx. Declined PFPT. Discussed meds (common s/e), she accepted them. Rx sent oxybutynin. Also interested in pessary, until UDS holding off on recommending BRENNA procedure Plan: Rx sent oxybutynin for urge/frequency/UUI; f/u 1month PVR UDS Declines PFPT Send for pessary fitting -Patient will call (more content not included)... [facility] CNOVon 07-24-2024 CNOV Office Visit (URUN) REHAN EUGENE ([id number]) 1960 F Date Time Provider Department 07/24/24 8:40 AM SONA BRUNO During your visit today, we recorded the following information about you: Pulse Blood pressure 97/minute 130/83 Sona Bruno DO 07/24/2024 1:38 PM Signed CYSTOSCOPY PROCEDURE NOTE: Rehan Eugene is a 64 year old female who presents for a cystoscopy. Pt ID verified with patient: Yes Procedure verified with patient: Yes Procedure confirmed with physician and network support specialist: Yes Fire Safety Check List Reviewed: Yes A urinalysis was not performed. Pre-procedure Diagnosis: mixed incontinence Post-procedure Diagnosis: Same as above Preprocedure antibiotics: Keflex 500 mg UNIVERSAL PROTOCOL / SAFETY CHECKLIST Procedure to be Performed: cysto Sign In: A Moment of CARE was completed. Appropriate PPE (Personal Protective Equipment) worn by all providers involved with the procedure. Special equipment not required. Patient/Surrogate Stated/Verified: Patient name, Date of , Relevant allergies, and The intended procedure Time Out: Relevant labs, photos, and/or imaging studies have been reviewed. Intended patient and procedure match the source document(s) (e.g. consent, HANDP, associated studies [imaging, pathology]) match the intended patient and procedure. Consent obtained and matches the intended procedure. Yes. Correct side/site is not applicable. Medications required for this procedure are verified. Fire risk assessed and is not applicable. Implants: are not applicable. Sign Out: Specimens not collected. All instruments, equipment, possible retained foreign bodies are accounted for. Yes. The post-procedure plan of care has been communicated to the patient or surrogate. The benefits, risks, alternatives of the cystoscopy procedure and personnel were discussed with the patient. The verbal consent was obtained and the patient agrees to proceed. Procedure: The patient was placed on the procedure table in the supine position and prepped and draped in the usual sterile fashion. The tip of the flexible cystoscope was carefully placed into the urethra under direct visual guidance. The scope was negotiated per urethra with no evidence of stricture into the bladder. Careful cross endoscopy was carried out. The posterior, superior and lateral sarmiento and dome of the bladder were all well visualized and the scope was retroflexed upon itself; the UOs were in orthotopic position. The findings were consistent with no bladder mucosal pathology (no trabeculations, cellules, masses, lesions, foreign bodies, etc). However, small capacity, strong urge after only filling to ~150cc At the conclusion of the procedure, the Flexible cystoscope was removed atraumatically. The patient tolerated the procedure without complications. Patient was given standard post-procedure instructions, and was directed to increase oral fluid intake as directed. Pelvic Exam: vulva signs of prior contact dermatitis on labia, groin, inner thigh Urethral meatus without prolapse, stenosis, or bleeding in supine position. no caruncle Urethra is hypermobile Cough stress test positive big leak Half-Speculum exam difficult poor patient positioning reveals vaginal tissues with Moderate atrophic changes. No abnormal discharge or lesion. Kegels not tested Medical resistor inspector present for exam: Awilda Shelton pt expressed verbal consent to proceed with sensitive exam Participation of a fellow, resident, medical student, or advanced practice provider student in performing the sensitive examination was discussed with the patient or authorized employment representative. The patient or authorized employment representative has agreed to proceed with the sensitive examination. (Sensitive examination includes inspection and/or palpation of the breasts, pelvis, prostate and anorectal regions) Uroflow : Patient voided volume: 220 ml over a total time of 21.4 s while in a sitting position The average flow rate was 12.3 mL/s (QAVG), reaching a maximum flow rate of 34.4 mL/s (QMAX) after a time of 7.5 s Post void residual 1 ml Curve: intermittent/saw tooth with good qmax but empties well , DO Jake Alfaro Brittany, DO 07/24/2024 9:10 AM Signed CYSTOSCOPY The following instructions will help you know what to expect in the days following your procedure. Do not, however, hesitate to call if you have any questions or concerns. Procedure: You have undergone a cystoscopy procedure where a telescope was inserted into your bladder through your urethra Activities Resume usual activity Diet Resume your regular diet as tolerated. Maintain adequate fluid intake Avoid/Reduce: Caffeine!! It is a bladder irritant that causes frequent urination. Be on the alert for caffeine in the following products: Sof (more content not included)... [facility] 07-07-2024 [facility] Office Visit (URUN) REHAN EUGENE ([id number]) 1960 F Date Time Provider Department 07/07/24 1:20 PM SONA BRUNO During your visit today, we recorded the following information about you: Pulse Blood pressure 99/minute 132/78 Sona Bruno DO 07/10/2024 3:57 PM Signed [facility] [place] NEW CONSULT NOTE/NEW PATIENT VISIT/HISTORY AND PHYSICAL: Referring Provider: Chantal Young DO PCP: Kristyn Lopez MD Date of Service: 07/07/2024 SUBJECTIVE Chief Complaint: Consult (Patient states that she has incontinence for the past year. She states that it happens all the time and will go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 [facility] Comment on above: Order Comment: Speci men Type: BLOOD SPECIMENOrdering Facility: [facility] Address: [address] [place] [address] Performed By: #### L [id number], 3040-3, 26703-5, 88714-7 ####[facility] LABIA [id number] [place] [address] [place] ALP [Catalytic activity/Vol] 114 U/L Normal 34-123 [facility] Comment on above: Order Comment: Speci men Type: BLOOD SPECIMENOrdering Facility: [facility] Address: [address] [place] [address] Performed By: #### L [id number], 3040-3, 01075-9, 29519-6 ####[facility] LABIA [id number] [address] [place] ALT [Catalytic activity/Vol] 18 U/L Normal 7-38 [facility] Comment on above: Order Comment: Speci men Type: BLOOD SPECIMENOrdering Facility: [facility] Address: [address] [place] [address] Performed By: #### L [id number], 3040-3, 78679-8, 59931-7 ####[facility] LABCLIA [id number] [place] [address] [place] Anion gap [Moles/Vol] 7 mmol/L Low 8-15 [facility] Comment on above: Order Comment: Speci men Type: BLOOD SPECIMENOrdering Facility: [facility] Address: [address] [place] [address] Performed By: #### L [id number], 3040-3, 50202-2, 97131-4 ####[facility] LABCLIA [id number] [place] [address] [place] AST [Catalytic activity/Vol] 17 U/L Normal 13-35 [facility] Comment on above: Order Comment: Speci men Type: BLOOD SPECIMENOrdering Facility: [facility] Address: [address] [place] [address] Performed By: #### L [id number], 3040-3, 87296-0, 44914-0 ####[facility] LABCLIA [id number] [place] [address] [place] Bilirubin [Mass/Vol] 0.3 mg/dL Normal 0.2-1.3 [facility] Comment on above: Order Comment: Speci men Type: BLOOD SPECIMENOrdering Facility: [facility] Address: [address] [place] [address] Performed By: #### L [id number], 3040-3, 59515-3, 58474-8 ####[facility] LABCLIA [id number] [place] [address] [place] Calcium [Mass/Vol] 8.8 mg/dL Normal 8.5-10.2 [facility] Comment on above: Order Comment: Speci men Type: BLOOD SPECIMENOrdering Facility: [facility] Address: [address] [place] [address] Performed By: #### L [id number], 3040-3, 49882-9, 79361-9 ####[facility] LABCLIA [id number] [place] [address] [place] Chloride [Moles/Vol] 108 mmol/L High 98-107 [facility] Comment on above: Order Comment: Speci men Type: BLOOD SPECIMENOrdering Facility: [facility] Address: [address] [place] [address] Performed By: #### L [id number], 3040-3, 17252-7, 80673-5 ####[facility] LABCLIA [id number] [place] [address] [place] CO2 [Moles/Vol] 28 mmol/L Normal 22-30 [facility] Comment on above: Order Comment: Speci men Type: BLOOD SPECIMENOrdering Facility: [facility] Address: [address] [place] [address] Performed By: #### L [id number], 3040-3, 17998-9, 57199-3 ####[facility] [id number] [place] [address] [place] Creatinine [Mass/Vol] 0.79 mg/dL Normal 0.58-0.96 [facility] Comment on above: Order Comment: Speci men Type: BLOOD SPECIMENOrdering Facility: [facility] Address: [address] [place] [address] Performed By: #### L [id number], 3040-3, 61131-8, 99691-3 ####[facility] [id number] [place] [address] [place] Creatinine and Glomerular filtration rate.predicted panel (S/P/Bld) 83 mL/min/1.73m??? Normal >=60 [facility] Comment on above: Order Comment: Speci men Type: BLOOD SPECIMENOrdering Facility: [facility] Address: [address] [place] [address] Result Comment: Alice mated Glomerular Filtration Rate (eGFR) is calculated using the 2020 CKD-EPI creatinine equation. This equation utilizes serum creatinine, sex, and age as parameters. The creatinine assay has traceable calibration to isotope dilution-mass spectrometry. Refer to KDIGO guidelines for clinical interpretation. In patients with unstable renal function, e.g. those with acute kidney injury, the eGFR may not accurately reflect actual GFR. Performed By: #### L [id number], 3040-3, 73506-1, 79430-3 ####[facility] LABCLIA [id number] [place] [address] [place] Glucose [Mass/Vol] 121 mg/dL High 74-99 [facility] Comment on above: Order Comment: Speci men Type: BLOOD SPECIMENOrdering Facility: [facility] Address: [address] [place], [place] [address] Result Comment: The [place] Diabetes Association (ADA) provides guidance for cutoff values for fasting glucose and random glucose. The ADA defines fasting as no caloric intake for at least 8 hours. Fasting plasma glucose results between 100 to 125 mg/dL indicate increased risk for diabetes (prediabetes). Fasting plasma glucose results greater than or equal to 126 mg/dL meet the criteria for diagnosis of diabetes. In the absence of unequivocal hyperglycemia, results should be confirmed by repeat testing. In a patient with classic symptoms of hyperglycemia or hyperglycemic crisis, random plasma glucose results greater than or equal to 200 mg/dL meet the criteria for diagnosis of diabetes. Reference: Standards of Medical Care in Diabetes 2016, [place] [employer] Association. Diabetes Care. 2016.39(Suppl 1). Performed By: #### L [id number], 3040-3, 89447-3, 41132-2 ####[facility] LABCLIA [id number] [place] [address] [place] Potassium [Moles/Vol] 4.5 mmol/L Normal 3.7-5.1 [facility] Comment on above: Order Comment: Kali fischer Type: BLOOD SPECIMENOrdering Facility: [facility] Address: [address] [place] [address] Performed By: #### L [id number], 3040-3, 90366-2, 42997-3 ####[facility] LABCLIA [id number] [place] [address] [place] Protein [Mass/Vol] 6.6 g/dL Normal 6.3-8.0 [facility] Comment on above: Order Comment: Kali fischer Type: BLOOD SPECIMENOrdering Facility: [facility] Address: [address] [place], [place] [address] Performed By: #### L [id number], 3040-3, 13808-9, 80912-5 ####[facility] LABCLIA [id number] [place] [address] [place] Sodium [Moles/Vol] 143 mmol/L Normal 136-144 [facility] Comment on above: Order Comment: Speci men Type: BLOOD SPECIMENOrdering Facility: [facility] Address: [address] [place], [place] [address] Performed By: #### L [id number], 3040-3, 57459-5, 02746-7 ####[facility] LABCLIA [id number] [place] [address] [place] Urea nitrogen [Mass/Vol] 13 mg/dL Normal 7- [facility] Comment on above: Order Comment: Speci men Type: BLOOD SPECIMENOrdering Facility: [facility] Address: [address] [place], [place] [address] Performed By: #### L [id number], 3040-3, 94351-0, 87612-4 ####[facility] LABCLIA [id number] [place] [address] [place] [facility] ECG COMPLETEon 04-27-2024 ECG COMPLETE Ventricular Rate : 8 7 BPM Atrial Rate : 234 BPM QRS Duration : 88 ms Q-T Interval : 402 ms QTC Calculation(Bazett) : 483 ms Calculated P [place] : 45 degrees Calculated R [place] : 51 degrees Calculated T [place] : 29 degrees Sinus rhythm with artifact in right arm lead Low voltage QRS Nonspecific T wave abnormality Prolonged QT Abnormal ECG When compared with ECG of 31-Oct-2023 23:20, unchanged Confirmed by NORA DE LA CRUZ MD ([id number]) on 04/27/2024 4:15:57 PM NAME : REHAN EUGENE PID : [id number] : 1960 Gender : Female Race : ORD : [id number] Procedure Date : Apr 27 2024 12:19:25 Edit Date : Apr 27 2024 16:16:00 Diagnosis: Sinus rhythm with artifact in right arm lead Low voltage QRS Nonspecific T wave abnormality Prolonged QT Abnormal ECG When compared with ECG of 31-Oct-2023 23:20, unchanged Confirmed by NORA DE LA CRUZ MD ([id number]) on 04/27/2024 4:15:57 PM Test Reason : HCS Location : 3 : ED ED Overread By : NORA DE LA CRUZ MD Edited By : NORA DE LA CRUZ MD Referred By : , Acquired by : Suly johns [facility] ED NOTEon 04-27-2024 ED NOTE HNO ID: [id number] Author: DIANNE ALMODOVAR RN Service: ? Author Type: Registered Nurse Type: ED Notes Filed: 04/27/2024 14:46 Note Text: Patient ambulated in the hallway and remained 92-94% [facility] ED NOTE HNO ID: [id number] Author: KOMAL SALAS, JEAN-PAUL Service: ? Author Type: Registered Nurse Type: ED Notes Filed: 04/27/2024 12:40 Note Text: Patient presents to the ER via EMS with c/o having chronic back pain but new pain at her bra line. Patient also expresses concerns because for the last several days, she has had numbness/tingling to her right hand. Patient is 88% on room air. I put her on 3L NC and she is 97%. [facility] ED NOTE HNO ID: [id number] Author: KOMAL SALAS RN Service: ? Author Type: Registered Nurse Type: ED Notes Filed: 04/27/2024 09:23 Note Text: Bed: 11-ED Expected date: 04/27/24 Expected time: 9:23 AM Means of arrival: Michael Fire/EMS Comments: Michael 65 F SOA [facility] ED PROV NOTEon 04-27-2024 ED PROV NOTE HNO ID: [id number] Author: NORA DE LA CRUZ MD Service: ? Author Type: Physician Type: ED Provider Notes Filed: 04/27/2024 14:33 Note Text: ED Provider Note Patient Name: Rehan Eugene : 1960 SERVICE DATE: 04/27/24 History Patient presents with: Back Pain: Chronic lower back pain. Patient now has pain from bra line down. Right arm pain. Chest Pain 63 presenting with chest and back discomfort.-year-old female she states she started with some tingling in her right fingers 3-5 three days ago and that has persisted. Then last night at around 10 PM around 12 hours prior to evaluation, she started having spontaneous onset of discomfort in her mid back around where her bra line is, new pain for her, she has chronic pain in her low back and has had some compression fractures there in the past, denies any injury to her back. Also last night complained of some tingling in her right lips but nowhere else in her face. Then this morning she woke up with the discomfort in her lower chest/upper abdomen nonlateralizing, pleuritic in nature, worse when she lies down as far as dyspnea and pain, all better when she sits up, as well as sweating profusely. States she has a history of asthma. Denies any leg pain orswelling but when she woke up this morning she also had tingling in her right lower leg. No weakness in her arm or leg. No neck pain. No headache. No changes in her vision. She denies any nausea or vomiting. The pain has not been colicky, but it hurts to move as well as to breathe. No history of blood clots. No history of recent travel out of the area or immobilization, no recent hospitalization, no recent surgery. Never had any abdominal surgeries. No history of heart problems. History provided by: Patient and spouse PAST MEDICAL HISTORY Diagnosis Date - Arthritis - Asthma PAST SURGICAL HISTORY Procedure Laterality Date - KNEE SURGERY HX Bilateral No family history on file. Social History Tobacco Use - Smoking status: Never - Smokeless tobacco: Never Vaping Use - Vaping status: Never Used Substance and Sexual Activity - Alcohol use: Not Currently - Drug use: Not on file - Sexual activity: Not on file ALLERGIES No Known Allergies Review of Systems Constitutional: Negative for chills and fever. Fatigue for the past week no other recent illness HENT: Negative for congestion and sore throat. Respiratory: Positive for shortness of breath. Negative for cough. Cardiovascular: Positive for chest pain. Negative for palpitations and leg swelling. Gastrointestinal: Positive for abdominal pain. Negative for diarrhea, nausea and vomiting. Genitourinary: Negative for dysuria and hematuria. Musculoskeletal: Positive for back pain. Negative for gait problem and neck pain. Skin: Negative for rash and wound. Neurological: Positive for numbness. Negative for weakness and headaches. Physical Exam Vitals [04/27/24 0928] BP Pulse Temp Temp src Resp SpO2 Weight Height 105/72 (!) 95 36.8 ?C (98.2 ?F) Oral 20 (!) 89 % (!) 138.4 kg (305 lb 1.9 oz) 1.6 m (5' 3) Physical Exam Vitals and nursing note reviewed. Constitutional: General: She is not in acute distress. Appearance: Normal appearance. She is obese. She is not ill-appearing. HENT: Head: Normocephalic and atraumatic. Mouth/Throat: Mouth: Mucous membranes are moist. Pharynx: Oropharynx is clear. Eyes: Extraocular Movements: Extraocular movements intact. Pupils: Pupils are equal, round, and reactive to light. Cardiovascular: Rate and Rhythm: Normal rate and regular rhythm. Heart sounds: No murmur heard. Pulmonary: Effort: Pulmonary effort is normal. Breath sounds: Examination of the right-upper field reveals wheezing. Examination of the left-upper field reveals wheezing. Examination of the right-middle field reveals wheezing. Examination of the left-middle field reveals wheezing. Examination of the right-lower field reveals wheezing. Examination of the left-lower field reveals wheezing. Wheezing present. Comments: Conversive in full sentences no distress. No rales or rhonchi. Chest: Chest wall: No tenderness. Abdominal: General: Bowel sounds are normal. There is no distension. Palpations: Abdomen is soft. Tenderness: There is abdominal tenderness (Mild diffuse upper abdomen nonlateralizing negative Dickens). Musculoskeletal: General: No swelling. Normal range of motion. Cervical back: Normal range of motion and neck supple. Right lower leg: No tenderness. No edema. Left lower leg: No tenderness. No edema. Skin: General: Skin is warm and dry. Findings: No rash. Neurological: General: No focal deficit present. Mental Status: She is alert and oriented to person, place, and time. Mental status is at baseline. Gait: Gait normal. Psychiatric: Mood and Affect: Mood normal. Behavior: Behavior normal. Thought Content: Thought content delmar (more content not included)... Normal [facility] Fibrin D-dimer FEU (PPP) [Ma ss/Vol]on 04-27-2024 Fibrin D-dimer DDU IA (Bld) [Mass/Vol] 404 ng/mL DDU High <=230 [facility] Comment on above: Order Comment: Speci men Type: BLOOD SPECIMENOrdering Facility: [facility] Address: [address] [place] [address] Performed By: #### 4 8065-7 ####[facility] LABCLIA [id number] [place] [address] [place] HIGH SENSITIVITY TROPONIN T (INITIAL)on 04-27-2024 Troponin T.cardiac High sensitivity method [Mass/Vol] 7 ng/L Normal <12 [facility] Comment on above: Order Comment: Speci men Type: BLOOD SPECIMENOrdering Facility: [facility] Address: [address] [place] [address] Performed By: #### L [id number], 3040-3, 28052-4, 17722-7 ####[facility] LABCLIA [id number] [address] HIGH SENSITIVITY TROPONIN T (SECOND)on 04-27-2024 Troponin T.cardiac High sensitivity method [Mass/Vol] 7 ng/L Normal <12 [facility] Comment on above: Order Comment: Speci men Type: BLOOD SPECIMENOrdering Facility: [facility] Address: [address] [place] [address] Performed By: #### L [id number] ####[facility] LABCLIA [id number] [address] [place] Lipase SerPl-cCncon 04-27-19 25 Lipase [Catalytic activity/Vol] 19 U/L Normal 16-61 [facility] Comment on above: Order Comment: Speci men Type: BLOOD SPECIMENOrdering Facility: [facility] Address: [address] [place] [address] Performed By: #### L [id number], 3040-3, 94233-0, 87031-1 ####[facility] LABCLIA [id number] [address] [place] NT-proBNP SerPl-mCncon 04-27 Natriuretic peptide.B prohormone N-Terminal [Mass/Vol] <36 Normal <125 [facility] Comment on above: Order Comment: Speci men Type: BLOOD SPECIMENOrdering Facility: [facility] Address: [address] [place] [address] Performed By: #### L [id number], 3040-3, 22141-4, 78880-1 ####[facility] LABCLIA [id number] [place] [address] [place] XR CHEST 1V FRONTAL PORTon 0 04-27-2024 XR CHEST 1V FRONTAL PORT * * *Final Report* * * DATE OF EXAM: Apr 27 2024 10:53AM UDX [id number] - XR CHEST 1V FRONTAL PORT / PROCEDURE REASON: Chest pain * * * * Physician Interpretation * * * * EXAMINATION: CHEST RADIOGRAPH (PORTABLE SINGLE VIEW AP) Exam Date/Time: 04/27/2024 10:53 AM CLINICAL HISTORY: Chest pain MQ: XCPR_5 Comparison: Chest x-ray dated 10/31/2023 RESULT: Lines, tubes, and devices: None. Lungs and pleura: Platelike atelectasis in the left upper lung zone. No confluent consolidation. No discernible pleural effusion or pneumothorax. Cardiomediastinal silhouette: Stable cardiomediastinal silhouette. Other: Degenerative changes IMPRESSION: Platelike atelectasis in the left lung. Otherwise, clear lungs. Medical Terminologist: TONYA Transcribe Date/Time: Apr 27 2024 10:58A Dictated by : LB LUTHER MD This examination was interpreted and the report reviewed and electronically signed by: LB LUTHER MD on Apr 27 2024 10:59AM EST [id number] [facility] CT ABD/PEL WO IVCONon 2023 CT ABD/PEL WO IVCON * * *Final Report* * * DATE OF EXAM: Nov 01 2023 12:13AM [facility] 0531 - CT ABD/PEL WO IVCON / PROCEDURE REASON: left flank pain * * * * Physician Interpretation * * * * EXAMINATION: CT ABDOMEN AND PELVIS WITHOUT IV CONTRAST CLINICAL HISTORY: LEFT flank pain TECHNIQUE: Non-IV contrast imaging of the abdomen and pelvis was performed using standard technique, scanning from just above the dome of the diaphragm to the symphysis pubis. Unenhanced imaging is limited for the evaluation of some intra-abdominal and pelvic pathology. MQ: CTAPWO_3 Contrast: IV: None CT Radiation dose: Integrated Dose-length product (DLP) for this visit = 1549.5 mGy*cm. CT Dose Reduction Employed: Automated exposure control (AEC) COMPARISON: None. RESULT: Abdomen / Pelvis: Liver: Unremarkable. Biliary: Cholelithiasis. Spleen: Enlarged up to 15 cm in length. Pancreas: Unremarkable. Adrenals: No mass. Kidneys: No calculus, hydronephrosis or finding to suggest a cyst or mass in the unenhanced kidney. GI Tract: No bowel dilation. Lymph Nodes: No lymphadenopathy. Mesentery/peritoneum: No ascites. Retroperitoneum: No mass. Vasculature: Atherosclerotic calcifications. Pelvis: No mass or ascites. Bones/Soft Tissues: Spinal degenerative changes. Lower thorax: Unremarkable. Localizer images: Unremarkable. IMPRESSION: 1. Cholelithiasis without evidence of acute cholecystitis. 2. Splenomegaly Medical Terminologist: TONYA Transcribe Date/Time: Nov 01 2023 1:17A Dictated by : DANIELLA SORTO MD This examination was interpreted and the report reviewed and electronically signed by: DANIELLA SORTO MD on Nov 01 2023 1:22AM EST [id number] Normal [facility] HIGH SENSITIVITY TROPONIN T (SECOND)on 11-01-2023 Troponin T.cardiac High sensitivity method [Mass/Vol] 8 ng/L Normal <12 [facility] Comment on above: Order Comment: Speci men Type: BLOOD SPECIMENOrdering Facility: [facility] Address: [address] [place] [address] Performed By: #### L [id number] ####[facility] [id number] [place] [address] [place] CBC W Auto Differential pane l (Bld)on 10-31-2023 Basophils (Bld) [#/Vol] 0.04 10*3/uL Normal <0.11 [facility] Comment on above: Order Comment: Speci men Type: BLOOD SPECIMENOrdering Facility: [facility] Address: [address] [place] [address] Performed By: #### 5 7021-8 ####[facility] [id number] [place] [address] [place] Basophils/100 WBC (Bld) 0.6 % Normal [facility] [facility] Comment on above: Order Comment: Speci men Type: BLOOD SPECIMENOrdering Facility: [facility] Address: [address] [place] [address] Performed By: #### 5 7021-8 ####[facility] LABCLIA [id number] [place] [address] [place] Differential cell count method Nom (Bld) Auto Normal [facility] Comment on above: Order Comment: Speci men Type: BLOOD SPECIMENOrdering Facility: [facility] Address: [address] [place] [address] Performed By: #### 5 7021-8 ####[facility] LABIA [id number] [place] [address] [place] Eosinophils (Bld) [#/Vol] 0.08 10*3/uL Normal <0.46 [facility] Comment on above: Order Comment: Speci men Type: BLOOD SPECIMENOrdering Facility: [facility] Address: [address] [place] [address] Performed By: #### 5 7021-8 ####[facility] [id number] [place] [address] [place] Eosinophils/100 WBC (Bld) 1.2 % Normal [facility] Comment on above: Order Comment: Speci men Type: BLOOD SPECIMENOrdering Facility: [facility] Address: [address] [place] [address] Performed By: #### 5 7021-8 ####[facility] LABIA [id number] [address] [place] Erythrocyte distribution width (RBC) [Ratio] 13.3 % Normal 11.5-15.0 [facility] Comment on above: Order Comment: Speci men Type: BLOOD SPECIMENOrdering Facility: [facility] Address: [address] [place] [address] Performed By: #### 5 7021-8 ####[facility] LABIA [id number] [place] [address] [place] Hematocrit (Bld) [Volume fraction] 43.8 % Normal 36.0-46.0 [facility] Comment on above: Order Comment: Speci men Type: BLOOD SPECIMENOrdering Facility: [facility] Address: [address] [place] [address] Performed By: #### 5 7021-8 ####[facility] LABIA [id number] [place] [address] [place] Hemoglobin (Bld) [Mass/Vol] 15.0 g/dL Normal 11.5-15.5 [facility] Comment on above: Order Comment: Speci men Type: BLOOD SPECIMENOrdering Facility: [facility] Address: [address] [place] [address] Performed By: #### 5 7021-8 ####[facility] LABIA [id number] [place] [address] [place] Immature granulocytes (Bld) [#/Vol] 0.03 10*3/uL Normal <0.10 [facility] Comment on above: Order Comment: Speci men Type: BLOOD SPECIMENOrdering Facility: [facility] Address: [address] [place] [address] Performed By: #### 5 7021-8 ####[facility] [id number] [place] [address] [place] Immature granulocytes/100 WBC (Bld) 0.5 % Normal [facility] Comment on above: Order Comment: Speci men Type: BLOOD SPECIMENOrdering Facility: [facility] Address: [address] [place] [address] Performed By: #### 5 7021-8 ####[facility] LABIA [id number] [place] [address] [place] Lymphocytes (Bld) [#/Vol] 0.92 10*3/uL Low 1.00-4.00 [facility] Comment on above: Order Comment: Speci men Type: BLOOD SPECIMENOrdering Facility: [facility] Address: [address] [place] [address] Performed By: #### 5 7021-8 ####[facility] LABIA [id number] [place] [address] [place] Lymphocytes/100 WBC (Bld) 13.9 % Normal [facility] Comment on above: Order Comment: Speci men Type: BLOOD SPECIMENOrdering Facility: [facility] Address: [address] [place] [address] Performed By: #### 5 7021-8 ####[facility] [id number] [address] MCH (RBC) [Entitic mass] 30.6 pg Normal 26.0-34.0 [facility] Comment on above: Order Comment: Speci men Type: BLOOD SPECIMENOrdering Facility: [facility] Address: [address] [place] [address] Performed By: #### 5 7021-8 ####[facility] [id number] [address] MCHC (RBC) [Mass/Vol] 34.2 g/dL Normal 30.5-36.0 [facility] Comment on above: Order Comment: Speci men Type: BLOOD SPECIMENOrdering Facility: [facility] Address: [address] [place] [address] Performed By: #### 5 7021-8 ####[facility] [id number] [address] [place] [facility] MCV (RBC) [Entitic vol] 89.4 fL Normal 80.0-100.0 [facility] Comment on above: Order Comment: Speci men Type: BLOOD SPECIMENOrdering Facility: [facility] Address: [address] [place] [address] Performed By: #### 5 7021-8 ####[facility] [id number] [address] Monocytes (Bld) [#/Vol] 0.42 10*3/uL Normal <0.87 [facility] Comment on above: Order Comment: Speci men Type: BLOOD SPECIMENOrdering Facility: [facility] Address: [address] [place] [address] Performed By: #### 5 7021-8 ####[facility] [id number] [address] Monocytes/100 WBC (Bld) 6.3 % Normal [facility] Comment on above: Order Comment: Speci men Type: BLOOD SPECIMENOrdering Facility: [facility] Address: [address] [place] [address] Performed By: #### 5 7021-8 ####[facility] LABIA [id number] [place] [address] [place] Neutrophils (Bld) [#/Vol] 5.13 10*3/uL Normal 1.45-7.50 [facility] Comment on above: Order Comment: Speci men Type: BLOOD SPECIMENOrdering Facility: [facility] Address: [address] [place] [address] Performed By: #### 5 7021-8 ####[facility] [id number] [place] [address] [place] Neutrophils/100 WBC (Bld) 77.5 % Normal [facility] Comment on above: Order Comment: Speci men Type: BLOOD SPECIMENOrdering Facility: [facility] Address: [address] [place] [address] Performed By: #### 5 7021-8 ####[facility] [id number] [place] [address] [place] Nucleated RBC (Bld) [#/Vol] 10*3/uL Normal <0.01 [facility] Comment on above: Order Comment: Speci men Type: BLOOD SPECIMENOrdering Facility: [facility] Address: [address] [place] [address] Performed By: #### 5 7021-8 ####[facility] LABIA [id number] [place] [address] [place] Nucleated RBC/100 WBC (Bld) [Ratio] 0.0 /100 WBC Normal [facility] Comment on above: Order Comment: Speci men Type: BLOOD SPECIMENOrdering Facility: [facility] Address: [address] [place] [address] Performed By: #### 5 7021-8 ####[facility] LABIA [id number] [place] [address] [place] Platelet mean volume (Bld) [Entitic vol] 9.5 fL Normal 9.0-12.7 [facility] Comment on above: Order Comment: Speci men Type: BLOOD SPECIMENOrdering Facility: [facility] Address: [address] [place] [address] Performed By: #### 5 7021-8 ####[facility] LABIA [id number] [place] [address] [place] Platelets (Bld) [#/Vol] 208 10*3/uL Normal 150-400 [facility] Comment on above: Order Comment: Speci men Type: BLOOD SPECIMENOrdering Facility: [facility] Address: [address] [place] [address] Performed By: #### 5 7021-8 ####[facility] [id number] [place] [address] [place] RBC (Bld) [#/Vol] 4.90 10*6/uL Normal 3.90-5.20 [facility] Comment on above: Order Comment: Speci men Type: BLOOD SPECIMENOrdering Facility: [facility] Address: [address] [place] [address] Performed By: #### 5 7021-8 ####[facility] [id number] [place] [address] [place] WBC (Bld) [#/Vol] 6.62 10*3/uL Normal 3.70-11.00 [facility] Comment on above: Order Comment: Speci men Type: BLOOD SPECIMENOrdering Facility: [facility] Address: [address] [place] [address] Performed By: #### 5 7021-8 ####[facility] [id number] [place] [address] [place] [facility] Comprehensive metabolic 2000 panelon 10-31-2023 Albumin [Mass/Vol] 3.9 g/dL Normal 3.9-4.9 [facility] Comment on above: Order Comment: Speci men Type: BLOOD SPECIMENOrdering Facility: [facility] Address: [address] [place], [place] [address] [address] Performed By: #### L [id number], 83163-1, 0-3 ####[facility] LABCLIA [id number] [place] [address] [place] ALP [Catalytic activity/Vol] 133 U/L High 34-123 [facility] Comment on above: Order Comment: Speci men Type: BLOOD SPECIMENOrdering Facility: [facility] Address: [address] [place] [address] Performed By: #### L [id number], 92577-9, 0-3 ####[facility] LABCLIA [id number] [place] [address] [place] ALT [Catalytic activity/Vol] 23 U/L Normal 7-38 [facility] Comment on above: Order Comment: Speci men Type: BLOOD SPECIMENOrdering Facility: [facility] Address: [address] [place] [address] [place] [address] Performed By: #### L [id number], , 0-3 ####[facility] LABCLIA [id number] [place] [address] [place] Anion gap [Moles/Vol] 14 mmol/L Normal 8-15 [facility] Comment on above: Order Comment: Speci men Type: BLOOD SPECIMENOrdering Facility: [facility] Address: [facility] [place] [address] Performed By: #### L [id number], , 0-3 ####[facility] LABCLIA [id number] [place] [address] [place] AST [Catalytic activity/Vol] 27 U/L Normal 13-35 [facility] Comment on above: Order Comment: Speci men Type: BLOOD SPECIMENOrdering Facility: [facility] Address: [facility] [place] [address] Performed By: #### L KD9040, 14870-4, 0-3 ####[facility] LABCLIA [id number] [place] [address] [place] Bilirubin [Mass/Vol] 0.7 mg/dL Normal 0.2-1.3 [facility] Comment on above: Order Comment: Speci men Type: BLOOD SPECIMENOrdering Facility: [facility] Address: [address] [place] [address] Performed By: #### L CK6575, 68360-9, 0-3 ####[facility] LABCLIA [id number] [place] [address] [place] Calcium [Mass/Vol] 10.3 mg/dL High 8.5-10.2 [facility] Comment on above: Order Comment: Speci men Type: BLOOD SPECIMENOrdering Facility: [facility] Address: [address] [place] [address] Performed By: #### L [id number], , 0-3 ####[facility] LABIA [id number] [place] [address] [place] Chloride [Moles/Vol] 97 mmol/L Low 98-107 [facility] Comment on above: Order Comment: Speci men Type: BLOOD SPECIMENOrdering Facility: [facility] Address: [address] [place] [address] Performed By: #### L SO9745, , 0-3 ####[facility] LABCLIA [id number] [place] [address] [place] CO2 [Moles/Vol] 24 mmol/L Normal 22-30 [facility] Comment on above: Order Comment: Speci men Type: BLOOD SPECIMENOrdering Facility: [facility] Address: [address] [place] [address] Performed By: #### L [id number], 67584-9, 0-3 ####[facility] LABCLIA [id number] [place] [address] [place] Creatinine [Mass/Vol] 0.88 mg/dL Normal 0.58-0.96 [facility] Comment on above: Order Comment: Speci men Type: BLOOD SPECIMENOrdering Facility: [facility] Address: [address] [place] [address] Performed By: #### L EG3508, 11576-9, 3040-3 ####[facility] LABCLIA [id number] [place] [address] [place] Creatinine and Glomerular filtration rate.predicted panel (S/P/Bld) 73 mL/min/1.73m??? Normal >=60 [facility] Comment on above: Order Comment: Kali fischer Type: BLOOD SPECIMENOrdering Facility: [facility] Address: [address] [place] [address] Result Comment: Alice mated Glomerular Filtration Rate (eGFR) is calculated using the 2020 CKD-EPI creatinine equation. This equation utilizes serum creatinine, sex, and age as parameters. The creatinine assay has traceable calibration to isotope dilution-mass spectrometry. Refer to KDIGO guidelines for clinical interpretation. In patients with unstable renal function, e.g. those with acute kidney injury, the eGFR may not accurately reflect actual GFR. Performed By: #### L PW4238, 59335-8, 304-3 ####[facility] LABIA [id number] [place] [address] [place] Glucose [Mass/Vol] 111 mg/dL High 74-99 [facility] Comment on above: Order Comment: Kali fischer Type: BLOOD SPECIMENOrdering Facility: [facility] Address: [address] [place] [address] Result Comment: The [place] Diabetes Association (ADA) provides guidance for cutoff values for fasting glucose and random glucose. The ADA defines fasting as no caloric intake for at least 8 hours. Fasting plasma glucose results between 100 to 125 mg/dL indicate increased risk for diabetes (prediabetes). Fasting plasma glucose results greater than or equal to 126 mg/dL meet the criteria for diagnosis of diabetes. In the absence of unequivocal hyperglycemia, results should be confirmed by repeat testing. In a patient with classic symptoms of hyperglycemia or hyperglycemic crisis, random plasma glucose results greater than or equal to 200 mg/dL meet the criteria for diagnosis of diabetes. Reference: Standards of Medical Care in Diabetes 2016, [place] [employer] Association. Diabetes Care. 2016.39(Suppl 1). Performed By: #### L VM5841, 21239-1, 3040-3 ####[facility] LABCLIA [id number] [place] [address] [place] Potassium [Moles/Vol] 4.2 mmol/L Normal 3.7-5.1 [facility] Comment on above: Order Comment: Speci men Type: BLOOD SPECIMENOrdering Facility: [facility] Address: [address] [place] [address] Performed By: #### L AL1999, 60795-5, 3040-3 ####[facility] LABIA [id number] [place] [address] [place] Protein [Mass/Vol] 7.4 g/dL Normal 6.3-8.0 [facility] Comment on above: Order Comment: Speci men Type: BLOOD SPECIMENOrdering Facility: [facility] Address: [address] [place] [address] Performed By: #### L QS2635, 87027-0, 0-3 ####[facility] LABIA [id number] [place] [address] [place] Sodium [Moles/Vol] 135 mmol/L Low 136-144 [facility] Comment on above: Order Comment: Speci men Type: BLOOD SPECIMENOrdering Facility: [facility] Address: [address] [place] [address] Performed By: #### L ZL8060, 76214-1, 3040-3 ####[facility] LABIA [id number] [place] [address] [place] Urea nitrogen [Mass/Vol] 16 mg/dL Normal 7-21 [facility] Comment on above: Order Comment: Speci men Type: BLOOD SPECIMENOrdering Facility: [facility] Address: [address] [place] [address] Performed By: #### L VG3039, 56912-7, 3040-3 ####[facility] LABIA [id number] [place] [address] [place] ECG COMPLETEon 10-31-2023 ECG COMPLETE Ventricular Rate : 8 6 BPM Atrial Rate : 86 BPM P-R Interval : 130 ms QRS Duration : 92 ms Q-T Interval : 366 ms QTC Calculation(Bazett) : 437 ms Calculated P [place] : 45 degrees Calculated R [place] : 79 degrees Calculated T [place] : 30 degrees Normal sinus rhythm Low voltage QRS Borderline ECG When compared with ECG of 22-Aug-2017 16:58, MANUAL COMPARISON REQUIRED PREVIOUS ECG IS INCOMPATIBLE Confirmed by MARCO JUNIOR MD ([id number]) on 11/04/2023 4:13:51 PM NAME : REHAN EUGENE PID : [id number] : 1960 Gender : Female Race : ORD : [id number] Procedure Date : Oct 31 2023 23:20:32 Edit Date : Nov 04 2023 16:13:52 Diagnosis: Normal sinus rhythm Low voltage QRS Borderline ECG When compared with ECG of 22-Aug-2017 16:58, MANUAL COMPARISON REQUIRED PREVIOUS ECG IS INCOMPATIBLE Confirmed by MARCO JUNIOR MD ([id number]) on 11/04/2023 4:13:51 PM Test Reason : HCS Location : 3 : ED ED Overread By : MARCO JUNIOR MD Edited By : MARCO JUNIOR MD Referred By : , Acquired by : KOMAL SALAS [facility] ED NOTEon 10-31-2023 ED NOTE HNO ID: [id number] Author: CARLOS EDUARDO CORTEZ RN Service: ? Author Type: Registered Nurse Type: ED Notes Filed: 10/31/2023 23:21 Note Text: Pt co fatigue, lethargy, sob, left flank pain, and dysuria for the past few days. Pt denies abd pain or n/v/d. Pt states last time she felt this she was septic with a UTI. PT GCS 15 on arrival to ED. [facility] ED PROV NOTEon 10-31-2023 ED PROV NOTE HNO ID: [id number] Author: JOSIAS SKINNER MD Service: ? Author Type: Physician Type: ED Provider Notes Filed: 11/01/2023 01:27 Note Text: ED Provider Note Patient Name: Rehan Eugene : 1960 SERVICE DATE: 10/31/23 History Patient presents with: Fatigue: Pt co fatigue, lethargy, dysuria, left flank pain, and sob for days. Pt denies fevers at home. Pt denies abd pain or n/v. Flank Pain Shortness of Breath This patient is a 63-year-old female who presents with concerns for sepsis. She states that she previously had sepsis and was hospitalized for a significant amount of time and states that she is having some similar symptoms. She states she has been dealing with bladder issues for months. She was in the process of being scheduled for a bladder sling however for insurance reasons was not able to have the surgery with the physician that she was seeing and states that she is in the process of starting over. Patient does complain of dysuria urinary urgency and frequency. She has begun to develop left flank pain with some radiation around to the flank. Today she had 2 episodes of emesis as well as chills and sweats although no documented fever. She also complains of malaise and fatigue, dyspnea with exertion. PAST MEDICAL HISTORY No date: Arthritis No date: Asthma PAST SURGICAL HISTORY No date: KNEE SURGERY HX; Bilateral No family history on file. Social History Tobacco Use - Smoking status: Never - Smokeless tobacco: Never Vaping Use - Vaping Use: Never used Substance and Sexual Activity - Alcohol use: Not Currently - Drug use: Not on file - Sexual activity: Not on file ALLERGIES No Known Allergies Review of Systems Physical Exam Vitals [10/31/23 2317] BP Pulse Temp Temp src Resp SpO2 Weight Height 130/71 (!) 100 36.7 ?C (98 ?F) Oral 20 96 % 115.7 kg (255 lb) -- Physical Exam Vitals reviewed. HENT: Head: Normocephalic. Mouth/Throat: Mouth: Mucous membranes are moist. Eyes: Extraocular Movements: Extraocular movements intact. Cardiovascular: Rate and Rhythm: Regular rhythm. Tachycardia present. Pulmonary: Effort: Pulmonary effort is normal. Breath sounds: Normal breath sounds. Abdominal: General: There is no distension. Palpations: Abdomen is soft. Tenderness: There is no abdominal tenderness. There is left CVA tenderness. There is no guarding. Skin: General: Skin is warm and dry. Neurological: General: No focal deficit present. Mental Status: She is alert. Psychiatric: Mood and Affect: Mood normal. Diagnostic Testing ED Labs Ordered and Reviewed - No data to display Procedures ED Course / Clinical Impression Clinical Impressions as of 11/01/23 0127 Acute cystitis without hematuria MDM / Disposition / Plan EKG shows normal sinus rhythm at a rate of 86 without acute ischemic changes. Chemistry is unremarkable, normal renal function. Troponins negative x 2. No leukocytosis. UA does show evidence of cystitis. Given unilateral flank pain a CT of the abdomen and pelvis was obtained to evaluate for urolithiasis. Patient has cholelithiasis without evidence of acute cholecystitis, no ureterolithiasis. Chest x-ray also shows no acute radiographic abnormality. Patient does not appear to be septic at this time. I believe she is appropriate for outpatient treatment. Prescription sent for oral antibiotics and patient discharged. She was advised on signs and symptoms to monitor for, conditions which should prompt return here to the emergency department for reevaluation. SIGNATURE: Josias Skinner MD - JOSIAS SKINNER 11/01/23 0127 Normal [facility] HIGH SENSITIVITY TROPONIN T (INITIAL)on 10-31-2023 Troponin T.cardiac High sensitivity method [Mass/Vol] 8 ng/L Normal <12 [facility] Comment on above: Order Comment: Speci [facility] Type: BLOOD SPECIMENOrdering Facility: [facility] Address: [address] [place] [address] Performed By: #### L [id number], 77967-3, 3040-3 ####[facility]CL[facility] [id number] [place] [address] [place] Lipase SerPl-cCncon 10-31-19 24 Lipase [Catalytic activity/Vol] 15 U/L Low 16-61 [facility] Comment on above: Order Comment: Kali [facility] Type: BLOOD SPECIMENOrdering Facility: [facility] Address: [address] [place] [address] Performed By: #### L [id number], 96653-6, 3040-3 ####[facility] LABCL[facility] [id number] [place] [address] [place] Urinalysis complete panel (U )on 10-31-2023 Bacteria LM.HPF (Urine sed) [#/Area] Moderate Abnormal None Seen [facility] Comment on above: Order Comment: Kali fischer Type: URINE SPECIMENOrdering Facility: [facility] Address: [address] [place] [address] Performed By: #### 2 4356-8 ####[facility]CL[facility] [id number] [place] [address] [place] Bilirubin Ql (U) Negative Normal Negative [facility] Comment on above: Order Comment: Speci men Type: URINE SPECIMENOrdering Facility: [facility] Address: [address] [place] [address] Performed By: #### 2 4356-8 ####[facility] LABIA [id number] [place] [address] [place] CALCIUM OXALATE CRYSTALS (UA) Few Abnormal None Seen [facility] Comment on above: Order Comment: Speci men Type: URINE SPECIMENOrdering Facility: [facility] Address: [address] [place] [address] Performed By: #### 2 4356-8 ####[facility] [id number] [place] [address] [place] Clarity (Unsp spec) Slightly Cloudy Abnormal Clear [facility] Comment on above: Order Comment: Speci men Type: URINE SPECIMENOrdering Facility: [facility] Address: [address] [place] [address] Performed By: #### 2 4356-8 ####[facility] LABIA [id number] [place] [address] [place] Color (U) Yellow Normal Yellow [facility] Comment on above: Order Comment: Speci men Type: URINE SPECIMENOrdering Facility: [facility] Address: [address] [place] [address] Performed By: #### 2 4356-8 ####[facility] LABIA [id number] [place] [address] [place] Epithelial cells LM.HPF (Urine sed) [#/Area] Few Normal [facility] Comment on above: Order Comment: Speci men Type: URINE SPECIMENOrdering Facility: [facility] Address: [address] [place], [place] [id number] Performed By: #### 2 4356-8 ####[facility] LABIA [id number] [place] [address] [place] Glucose Test strip (U) [Mass/Vol] Negative Normal Negative [facility] Comment on above: Order Comment: Speci men Type: URINE SPECIMENOrdering Facility: [facility] Address: [address] [place] [address] Performed By: #### 2 4356-8 ####[facility] LABCLIA [id number] [place] [address] [place] [facility] Hemoglobin Ql (U) Negative Normal Negative [facility] Comment on above: Order Comment: Speci men Type: URINE SPECIMENOrdering Facility: [facility] Address: [address] [place] [address] Performed By: #### 2 4356-8 ####[facility] LABIA [id number] [address] Ketones Ql (U) Negative Normal Negative [facility] ital Comment on above: Order Comment: Speci men Type: URINE SPECIMENOrdering Facility: [facility] Address: [address] [place] [address] Performed By: #### 2 4356-8 ####[facility] LABIA [id number] [address] Leukocyte esterase Test strip Ql (U) Negative Normal Negative [facility] Comment on above: Order Comment: Speci men Type: URINE SPECIMENOrdering Facility: [facility] Address: [address] [place] [address] Performed By: #### 2 4356-8 ####[facility] LABCLIA [id number] [address] [place] Nitrite Ql (U) Positive Abnormal Negative [facility] ital Comment on above: Order Comment: Speci men Type: URINE SPECIMENOrdering Facility: [facility] Address: [address] [place] [address] Performed By: #### 2 4356-8 ####[facility] LABCLIA [id number] [place] [address] [place] pH (U) 6.0 [pH] Normal 5.0-8.0 [facility] Comment on above: Order Comment: Speci men Type: URINE SPECIMENOrdering Facility: [facility] Address: [address] [place] [address] Performed By: #### 2 4356-8 ####[facility] [id number] [address] [place] [facility] Protein (U) [Mass/Vol] Negative Normal Negative [facility] Comment on above: Order Comment: Speci men Type: URINE SPECIMENOrdering Facility: [facility] Address: [address] [place] [address] Performed By: #### 2 4356-8 ####[facility] [id number] [place] [address] [place] RBC LM.HPF (Urine sed) [#/Area] 0-3 /HPF Normal 0-3 /HPF [facility] Comment on above: Order Comment: Speci men Type: URINE SPECIMENOrdering Facility: [facility] Address: [address] [place] [address] Performed By: #### 2 4356-8 ####[facility] [id number] [address] [place] [facility] Specific gravity (U) [Rel density] >=1.030 Normal 1.005-1.030 [facility] Comment on above: Order Comment: Speci men Type: URINE SPECIMENOrdering Facility: [facility] Address: [address] [place] [address] Performed By: #### 2 4356-8 ####[facility] [id number] [address] Urobilinogen Ql (U) 0.2 EU/dL Normal 0.2-1.0 EU/dL [facility] Comment on above: Order Comment: Speci men Type: URINE SPECIMENOrdering Facility: [facility] Address: [address] [place] [address] Performed By: #### 2 4356-8 ####[facility] [id number] [place] [address] [place] WBC LM.HPF (Urine sed) [#/Area] 6-10 /HPF Abnormal 0-5 /HPF [facility] Comment on above: Order Comment: Speci men Type: URINE SPECIMENOrdering Facility: [facility] Address: [address] [place] [address] Performed By: #### 2 4356-8 ####[facility] LABCLIA [id number] [place] [address] [place] XR CHEST 1V FRONTAL PORTon 0 10-31-2023 XR CHEST 1V FRONTAL PORT * * *Final Report* * * DATE OF EXAM: Oct 31 2023 11:56PM UDX 5376 - XR CHEST 1V FRONTAL PORT / PROCEDURE REASON: Shortness of breath * * * * Physician Interpretation * * * * EXAMINATION: CHEST RADIOGRAPH (SINGLE VIEW AP OR PA) CLINICAL HISTORY: Shortness of breath MQ: XC1_5 Comparison: 06/22/2019 RESULT: Lines, tubes, and devices: None. Lungs and pleura: No suspicious focal consolidation. No overt pulmonary edema. No large effusion. No pneumothorax. Cardiomediastinal silhouette: Normal cardiomediastinal silhouette. Other: No acute skeletal finding. IMPRESSION: No acute radiographic abnormality. Medical Terminologist: PSCB Transcribe Date/Time: Nov 01 2023 12:47A Dictated by : ANA RANDALL MD This examination was interpreted and the report reviewed and electronically signed by: ANA RANDALL MD on Nov 01 2023 12:48AM EST [id number] Normal [facility] CT ABDOMEN/PELVIS W/O CONTRA STon 07-29-2023 CT ABDOMEN/PELVIS W/O CONTRAST ORIGINAL EXAMINATION: CT OF THE ABDOMEN AND PELVIS WITHOUT CONTRAST 07/26/2023 7:38 pm TECHNIQUE: CT of the abdomen and pelvis was performed without the administration of intravenous contrast. Multiplanar reformatted images are provided for review. Automated exposure control, iterative reconstruction, and/or weight based adjustment of the mA/kV was utilized to reduce the radiation dose to as low as reasonably achievable. COMPARISON: 11/16/2018 HISTORY: ORDERING SYSTEM PROVIDED HISTORY: Reason for Exam: flank pain, history of kidney stones B/L FLANK PAIN. PT STATES RECENT UTI AND SEPSIS. PREV HX RENAL STONES FINDINGS: The kidneys are unremarkable, there is no hydronephrosis and there are no urinary tract calculi. The imaged portions of the liver and spleen are unremarkable. A small calcified gallstone is noted. The adrenals and pancreas are unremarkable. The abdominal aorta is unremarkable. There are no enlarged lymph nodes. The bowel is unremarkable. There is no free air or free fluid. The uterus and urinary bladder are unremarkable. There is no adnexal mass. There is no acute bony abnormality. There is a mild chronic appearing L1 compression deformity which is new since 2019. IMPRESSION: No evidence of obstructive uropathy. Cholelithiasis. Chronic appearing mild L1 compression deformity. Interpreted by: Kade Salazar Preliminary Report By: Kade Salazar Electronically signed By Kade Salazar Dictated Date: 07/29/2023 12:42:33 PM Prelim Date: 07/29/2023 12:46:00 PM Sign Date: 07/29/2023 12:46:00 PM [facility]ing [facility]-18-2022 BASO# 0.10 x10(3) Normal 0.00-0.10 [facility] Comment on above: Performed By: #### L 200.0010 #### [facility] [address] [place] [address] 89425 Basophils/100 WBC (Bld) 0.7 % Normal 0.0-1.0 [facility] Comment on above: Performed By: #### L 200.0010 #### [facility] [address] [place] [address] 75084 EOS# 0.40 x10(3) Normal 0.00-0.54 [facility] Comment on above: Performed By: #### L 200.0010 #### [facility] [address] [place] [address] 27888 Eosinophils/100 WBC (Bld) 4.1 % Normal 0.5-4.9 [facility] Comment on above: Performed By: #### L 200.0010 #### [facility] [address] [place] [address] 31674 Erythrocyte distribution width (RBC) [Ratio] 13.5 % Normal 12.5-15.7 [facility] Comment on above: Performed By: #### L 200.0010 #### [facility] [address] [place] [address] 02026 Hematocrit (Bld) [Volume fraction] 42.9 % Normal 36.0-48.0 [facility] Comment on above: Performed By: #### L 200.0010 #### [facility] [address] [place] [address] 82357 Hemoglobin (Bld) [Mass/Vol] 14.5 g/dL Normal 12.0-16.0 [facility] Comment on above: Performed By: #### L 200.0010 #### [facility] [address] [place] [address] 25822 LYMPH# 2.60 x10(3) Normal 1.00-3.50 [facility] Comment on above: Performed By: #### L 200.0010 #### [facility] [address] [place] [address] 85499 Lymphocytes/100 WBC (Bld) 25.6 % Normal 16.0-48.0 [facility] Comment on above: Performed By: #### L 200.0010 #### [facility] [address] [place] [address] 88138 MCH (RBC) [Entitic mass] 31.6 pg Normal 28.5-32.9 [facility] Comment on above: Performed By: #### L 200.0010 #### [facility] [address] [place] [address] 54531 MCHC (RBC) [Mass/Vol] 33.9 g/dL Normal 33.0-36.0 [facility] Comment on above: Performed By: #### L 200.0010 #### [facility] [address] [place] [address] 15577 MCV (RBC) [Entitic vol] 93.2 fL Normal 80.0-99.0 [facility] Comment on above: Performed By: #### L 200.0010 #### [facility] [address] [place] [address] 74092 MONO# 0.50 x10(3) Normal 0.30-0.80 [facility] Comment on above: Performed By: #### L 200.0010 #### [facility] [address] [place] [address] 73634 Monocytes/100 WBC (Bld) 4.9 % Normal 4.3-11.2 [facility] Comment on above: Performed By: #### L 200.0010 #### [facility] [address] [place] [address] 54574 NEUT# 6.50 x10(3) Normal 1.40-6.50 [facility] Comment on above: Performed By: #### L 200.0010 #### [facility] [address] [place] [address] 07369 Neutrophils/100 WBC (Bld) 64.7 % Normal 45.0-73.0 [facility] Comment on above: Performed By: #### L 200.0010 #### [facility] [address] [place] [address] 31982 Platelet mean volume (Bld) [Entitic vol] 7.6 fL Normal 7.5-9.5 [facility] Comment on above: Performed By: #### L 200.0010 #### [facility] [address] [place] [address] 65935 PLT 283 X10(3) Normal 150-450 [facility] Comment on above: Performed By: #### L 200.0010 #### [facility] [address] [place] [address] 26210 RBC 4.60 x10(6) Normal 3.30-5.00 [facility] Comment on above: Performed By: #### L 200.0010 #### [facility] [address] [place] [address] 31590 WBC 10.1 x10(3) High 4.5-10.0 [facility] Comment on above: Performed By: #### L 200.0010 #### [facility] [address] [place] [address] 85916 CBC W Auto Differential pane l (Bld)on 07-18-2022 BASO ABS 0.10 x10(3) 0.00 - 0.10 x10(3) [facility] Basophils/100 WBC (Bld) 0.7 % 0.0 - 1.0 % [facility] EOS ABS 0.40 x10(3) 0.00 - 0.54 x10(3) [facility] Eosinophils/100 WBC (Bld) 4.1 % 0.5 - 4.9 % [facility] Erythrocyte distribution width (RBC) [Ratio] 13.5 % 12.5 - 15.7 % [facility] Hematocrit (Bld) [Volume fraction] 42.9 % 36.0 - 48.0 % [facility] Hemoglobin (Bld) [Mass/Vol] 14.5 g/dL 12.0 - 16.0 g/dL [facility] LYMPH ABS 2.60 x10(3) 1.00 - 3.50 x10(3) [facility] Lymphocytes/100 WBC (Bld) 25.6 % 16.0 - 48.0 % [facility] MCH (RBC) [Entitic mass] 31.6 pg 28.5 - 32.9 pg [facility] MCHC (RBC) [Mass/Vol] 33.9 g/dL 33.0 - 36.0 g/dL [facility] MCV (RBC) [Entitic vol] 93.2 fL 80.0 - 99.0 fl [facility] MONO ABS 0.50 x10(3) 0.30 - 0.80 x10(3) [facility] Monocytes/100 WBC (Bld) 4.9 % 4.3 - 11.2 % [facility] Neutrophil Ab 6.50 x10(3) 1.40 - 6.50 x10(3) [facility] Neutrophils/100 WBC (Bld) 64.7 % 45.0 - 73.0 % [facility] Platelet mean volume (Bld) [Entitic vol] 7.6 fL 7.5 - 9.5 fl [facility] Platelets (Bld) [#/Vol] 283 X10(3) 150 - 450 X10(3) [facility] RBC (Bld) [#/Vol] 4.60 x10(6) 3.30 - 5.0 0 x10(6) [facility] WBC (Bld) [#/Vol] 10.1 x10(3) High 4.5 - 10.0 x10(3) [facility] CMPon 07-18-2022 A:G RATIO 1.15 Normal 1.1-2.5 [facility] Comment on above: Performed By: #### L 100.0040, L100.0005, L304.0140 #### [facility] [address] [place] [address] 32654 Albumin [Mass/Vol] 3.8 g/dL Normal 3.5-5.2 [facility] Comment on above: Performed By: #### L 100.0040, L100.0005, L304.0140 #### [facility] [address] [place] [address] 72539 ALK. PHOS 172 U/L High 35-105 [facility] Comment on above: Performed By: #### L 100.0040, L100.0005, L304.0140 #### [facility] [address] [place] [address] 51858 ALT [Catalytic activity/Vol] 29 U/L Normal 5-33 [facility] Comment on above: Performed By: #### L 100.0040, L100.0005, L304.0140 #### [facility] [address] [place] [address] 52502 Anion gap [Moles/Vol] 10.6 mmol/L Low - [facility] Comment on above: Performed By: #### L 100.0040, L100.0005, L304.0140 #### [facility] [address] [place] [address] 52715 AST [Catalytic activity/Vol] 29 U/L Normal 5-32 [facility] Comment on above: Performed By: #### L 100.0040, L100.0005, L304.0140 #### - [facility] [address] [place] [address] 74769 Bilirubin [Mass/Vol] 0.5 mg/dL Normal 0.2-1.2 [facility] Comment on above: Performed By: #### L 100.0040, L100.0005, L304.0140 #### [facility] [address] [place] [address] Calcium [Mass/Vol] 9.6 mg/dL Normal 8.8-10.2 [facility] Comment on above: Performed By: #### L 100.0040, L100.0005, L304.0140 #### [facility] [address] [place] [address] 96562 Chloride [Moles/Vol] 103 mmol/L Normal 98-107 [facility] Comment on above: Performed By: #### L 100.0040, L100.0005, L304.0140 #### [facility] [address] [place] [address] 56647 CO2 [Moles/Vol] 33 mmol/L High 22-29 [facility] Comment on above: Performed By: #### L 100.0040, L100.0005, L304.0140 #### - [facility] [address] [place] [address] 33467 Creatinine [Mass/Vol] 0.84 mg/dL Normal 0.50-0.90 [facility] Comment on above: Performed By: #### L 100.0040, L100.0005, L304.0140 #### - [facility] [address] [place] [address] 75378 eGFR if AFR CURT > 60 ml/min/1.73m2 Normal [facility] Comment on above: Result Comment: eGFR >= 60 Indicates normal kidney function. * eGFR IS AN ESTIMATE * (AFR CURT = ) (non-AFR AM = NON-) MDRD calculation used in the eGFR should not be used to dose medications. For further limitations of the eGFR please refer to the Physician Website or the National Kidney Disease Education Program website (www.nkdep.nih.gov). Performed By: #### L 100.0040, L100.0005, L304.0140 #### [facility] [address] [place] [address] 04487 eGFR nonAFR Curt > 60 ml/Min/1.73m2 Normal [facility] Comment on above: Performed By: #### L 100.0040, L100.0005, L304.0140 #### [facility] [address] [place] [address] 58358 Globulin (S) [Mass/Vol] 3.3 g/dL Normal 1.5-4.5 [facility] Comment on above: Performed By: #### L 100.0040, L100.0005, L304.0140 #### [facility] [address] [place] [address] 43125 Glucose [Mass/Vol] 137 mg/dL High 82-115 [facility] Comment on above: Performed By: #### L 100.0040, L100.0005, L304.0140 #### [facility] [address] [place] [address] 52882 Potassium [Moles/Vol] 4.6 mmol/L Normal 3.5-5.0 [facility] Comment on above: Performed By: #### L 100.0040, L100.0005, L304.0140 #### [facility] [address] [place] [address] 26309 Protein [Mass/Vol] 7.1 g/dL Normal 6.4-8.3 [facility] Comment on above: Performed By: #### L 100.0040, L100.0005, L304.0140 #### [facility] [address] [place] [address] 91826 Sodium [Moles/Vol] 142 mmol/L Normal 135-145 [facility] Comment on above: Performed By: #### L 100.0040, L100.0005, L304.0140 #### [facility] [address] [place] [address] 36813 Urea nitrogen [Mass/Vol] 13 mg/dL Normal 8-23 [facility] Comment on above: Performed By: #### L 100.0040, L100.0005, L304.0140 #### [facility] [address] [place] [address] Comprehensive metabolic 2000 panelon 07-18-2022 Albumin [Mass/Vol] 3.8 g/dL 3.5 - 5.2 g/dL Cl [facility] Albumin/Globulin [Mass ratio] 1.15 {ratio} 1.1 - 2.5 [facility] ALP [Catalytic activity/Vol] 172 U/L High 35 - 105 U/L [facility] ALT [Catalytic activity/Vol] 29 U/L 5 - 33 U/L [facility] Anion gap [Moles/Vol] 10.6 mmol/L Low 15 - 22 mmol/L [facility] AST [Catalytic activity/Vol] 29 U/L 5 - 32 U/L [facility] Bilirubin [Mass/Vol] 0.5 mg/dL 0.2 - 1.2 mg/dL [facility] Calcium [Mass/Vol] 9.6 mg/dL 8.8 - 10. 2 mg/dL [facility] Chloride [Moles/Vol] 103 mmol/L 98 - 107 mmol/L [facility] CO2 [Moles/Vol] 33 mmol/L High 22 - 29 mmol/L [facility] Creatinine [Mass/Vol] 0.84 mg/dL 0.50 - 0.90 mg/dL [facility] eGFR-All Other Races > 60 ml/Min/1.73m2 [facility] GFR/1.73 sq M.predicted among blacks MDRD (S/P/Bld) [Vol rate/Area] mL/min/{1.73_m2} [facility] Globulin (S) [Mass/Vol] 3.3 g/dL 1.5 - 4.5 g/dL [facility] Glucose [Mass/Vol] 137 mg/dL High 82 - 115 mg/dL [facility] Potassium [Moles/Vol] 4.6 mmol/L 3.5 - 5.0 mmol/L [facility] Protein [Mass/Vol] 7.1 g/dL 6.4 - 8.3 g/dL [facility] Sodium [Moles/Vol] 142 mmol/L 135 - 145 mmol/L [facility] Urea nitrogen [Mass/Vol] 13 mg/dL 8 - 23 mg/dL [facility] LIPID PANELon 07-18-2022 Cholesterol [Mass/Vol] 170 mg/dL Normal 130-200 [facility] Comment on above: Performed By: #### L 100.0040, L100.0005, L304.0140 #### [facility] [address] [place] [address] 08718 Cholesterol in HDL [Mass/Vol] 52 mg/dL Normal [facility] Comment on above: Result Comment: [place] Cholesterol Education Program (NCEP) guidelines: <40 mg/dL: Low HDL-Cholesterol(major risk factor for CHD) > or = 60 mg/dL: High HDL-Cholesterol(negative risk factor for CHD) HDL-cholesterol is affected by a number of factors, e.g., smoking, exercise, hormones, sex, and age. 4th Generation Test; Results may be approximately 7% lower than previous values. Performed By: #### L 100.0040, L100.0005, L304.0140 #### [facility] [address] [place] [address] 30192 Cholesterol in LDL [Mass/Vol] 101 mg/dL Normal [facility] Comment on above: Result Comment: LDL: OPTIMAL FOR PEOPLE AT VERY HIGH RISK <70 OPTIMAL <100 NEAR OPTIMAL 100-129 BORDERLINE HIGH 130-159 HIGH 160-189 VERY HIGH >=190 Source: 2008 NCEP ATP III, ADA Guidelines Reviewed: June, Performed By: #### L 100.0040, L100.0005, L304.0140 #### [facility] [address] [place] [address] 73375 Cholesterol in VLDL [Mass/Vol] 17 mg/dL Normal 6-40 [facility] Comment on above: Performed By: #### L 100.0040, L100.0005, L304.0140 #### [facility] [address] [place] [address] 45357 LDL/HDL RATIO 1.9 Normal [facility] Comment on above: Performed By: #### L 100.0040, L100.0005, L304.0140 #### [facility] [address] [place] [address] 06830 Triglyceride [Mass/Vol] 84 mg/dL Normal [facility] Comment on above: Result Comment: TRIG : DESIRABLE: <150 mg/dL Performed By: #### L 100.0040, L100.0005, L304.0140 #### [facility] [address] [place] [address] Lipid 1996 panelon 3 Cholesterol [Mass/Vol] 170 mg/dL 130 - 200 mg/dL [facility] Cholesterol in HDL [Mass/Vol] 52 mg/dL [facility] Cholesterol in LDL [Mass/Vol] 101 mg/dL [facility] LDL:HDL Ratio 1.9 [facility] Triglyceride [Mass/Vol] 84 mg/dL [facility] VLDL Cholesterol 17 mg/dL 6 - 40 mg/dL [facility] TSHon 07-18-2022 TSH 3.61 uIU/mL Normal 0.270-4.200 [facility] Comment on above: Performed By: #### L 100.0040, L100.0005, L304.0140 #### [facility] [address] [place] [address] TSH BLDon 07-18-2022 TSH Qn 3.61 uIU/mL 0.270 - 4.200 uIU/mL [facility] CNPNon 12-17-2021 CNPN Telephone (GLADIS) REHAN EUGENE ([id number]) 1960 F Date Time Provider Department 12/17/21 JAYE TOBIAS During your visit today, we recorded the following information about you: Jaye Tobias APRN.CNP 12/17/2021 1:47 PM Signed Pt. Returned my call from yesterday about xray results. Aware to follow up with primary care. Verbalizes understanding Allergies As of Date: 12/17/2021 (No Known Allergies) Date Reviewed: 12/16/2021 Reviewed by: Mendy Prieto MA - Fully Assessed Reason for Visit: Results [95] Prescriptions as of 12/17/2021 - DULoxetine (CYMBALTA) 20 mg capsule Take 20 mg by mouth twice daily. - tiZANidine (ZANAFLEX) 4 mg tablet Take 1 tablet by mouth three times daily. - predniSONE (DELTASONE) 20 mg tablet Take 1 tablet by mouth twice daily. Problem List As Of Date: 12/17/2021 (None) Encounter Status:Closed by JAYE TOBIAS on 12/17/21 Normal [facility] CNOVon 12-16-2021 CNOV Office Visit (UCUPNO ) REHAN EUGENE ([id number]) 1960 F Date Time Provider Department 12/16/21 11:40 AM CAROLINE BUCKLEY During your visit today, we recorded the following information about you: Temperature Pulse Blood pressure Weight 99.1 degrees 103/minute 133/74 122.5 kg Height 1.626 m Caroline Buckley APRN.CNP 12/16/2021 2:07 PM Signed [facility] Caroline Buckley APRN.RJ REFERRING PROVIDER: Damaso Rehan Eugene is a 61 year old female who is here for evaluation of neck and back pain. History of Illness Since Last Visit: Patient presents with complaints of acute neck pain after a fall from a ladder 4 days ago. She was cleaning at home and changing curtains. While she was standing on a stepladder she lost balance and fell backwards. She estimates she fell about 5 feet. She landed flat on her upper lower back. She states her head did hit the floor last. She has no supraspinous tenderness on exam of the neck. She complains of some tingling and numbness in the left shoulder and down the left arm. Pain is mild. The majority of her pain is located along the upper and mid lower back. She does have some edema of the upper back. There is no obvious signs of trauma or abrasions on the back. She has tenderness with palpation over the lower back. With movement she complains of sharp stabbing pains down the left leg. She is complaining of numbness of both first toes. She states back pain is located along the bra line down to the lower lumbar bikini region. She denies any abdominal pain or discomfort. She denies any chest wall discomfort. She complains of pain with bending and twisting. She does have a history of incontinence, but states its been slightly worse the last couple of days since the fall. She complains of lower back discomfort when she is trying to bear down for bowel movement. Expressed concern that [facility]. Suggested patient go to the emergency department for further evaluation, but she refuses at this time. She is concerned about [id number] cost. She voices understanding that imaging is limited and she could benefit from CT or MRI evaluation. HISTORY PAST MEDICAL HISTORY Diagnosis Date Arthritis Asthma PAST SURGICAL HISTORY Procedure Laterality Date KNEE SURGERY HX Bilateral Social History Tobacco Use Smoking status: Never Smokeless tobacco: Never Vaping Use Vaping Use: Never used Substance Use Topics Alcohol use: Not Currently ALLERGIES: ALLERGIES No Known Allergies MEDICATIONS: Current Outpatient Medications Medication Sig DULoxetine (CYMBALTA) 20 mg capsule Take 20 mg by mouth twice daily. tiZANidine (ZANAFLEX) 4 mg tablet Take 1 tablet by mouth three times daily. predniSONE (DELTASONE) 20 mg tablet Take 1 tablet by mouth twice daily. No current facility-administered medications for this visit. IMMUNIZATIONS: There is no immunization history on file for this patient. REVIEW OF SYSTEMS Review of Systems Constitutional: Negative for chills, diaphoresis, fatigue, fever and unexpected weight change. HENT: Negative for congestion, dental problem, ear pain, postnasal drip, rhinorrhea, sinus pressure, sinus pain, sore throat and trouble swallowing. Eyes: Negative for photophobia, pain, discharge, itching and visual disturbance. Respiratory: Negative for apnea, cough, chest tightness, shortness of breath, wheezing and stridor. Cardiovascular: Negative for chest pain, palpitations and leg swelling. Gastrointestinal: Negative for abdominal distention, abdominal pain, blood in stool, constipation, diarrhea, nausea and vomiting. Endocrine: Negative for polydipsia, polyphagia and polyuria. Genitourinary: Negative for difficulty urinating, dysuria, flank pain and hematuria. Incontinence Musculoskeletal: Positive for back pain, gait problem, joint swelling and neck pain. Negative for arthralgias and myalgias. Skin: Negative for color change, pallor, rash and wound. Allergic/Immunologic: Negative for environmental allergies and food allergies. Neurological: Positive for numbness (tingling down left arm / shoulder, bilateral lower extremities (1st toe each foot)). Negative for dizziness, syncope, weakness, light-headedness and headaches. Hematological: Negative for adenopathy. Does not bruise/bleed easily. Psychiatric/Behavioral : Negative for agitation, behavioral problems, confusion and suicidal ideas. Vital Signs: BP 133/74 Pulse 103 Temp (Src) 99.1 (Oral) Ht 5' 4 (1.63m) Wt 270 lb (122.5kg) SpO2 95% BMI 46.32 kg/(m2). Physical Exam Constitutional: Appearance: Normal appearance. She is morbidly obese. HENT: Head: Normocephalic and atraumatic. Nose: Nose normal. Eyes: Extraocular Movements: Extraocular movements intact. Pupils: Pup (more content not included)... Normal [facility] [place] REHAN EUGENE ([id number]) 1960 F Date Time Provider Department 12/16/21 JAYE TOBIAS During your visit today, we recorded the following information about you: Jaye Tobias APRN.PARTS ROOM ASSOCIATE 12/16/2021 4:36 PM Signed Called and left voicemail for her to return my call about her xray results tomorrow and that we return at 0800. Allergies As of Date: 12/16/2021 (No Known Allergies) Date Reviewed: 12/16/2021 Reviewed by: Mendy Prieto MA - Fully Assessed Reason for Visit: Results [95] Prescriptions as of 12/16/2021 - DULoxetine (CYMBALTA) 20 mg capsule Take 20 mg by mouth twice daily. - tiZANidine (ZANAFLEX) 4 mg tablet Take 1 tablet by mouth three times daily. - predniSONE (DELTASONE) 20 mg tablet Take 1 tablet by mouth twice daily. Problem List As Of Date: 12/16/2021 (None) Encounter Status:Closed by JAYE TOBIAS on 12/16/21 Normal [facility] No Panel Informationon 12-16 [facility] HGB A1Con 06-29-2021 HbA1c (Bld) [Mass fraction] 6.9 % High 4.3 - 6.1 % [facility] CBC W Auto Differential pane l (Bld)on 06-28-2021 BASO ABS 0.10 x10(3) 0.00 - 0.10 x10(3) [facility] Basophils/100 WBC (Bld) 1.0 % 0.0 - 1.0 % [facility] EOS ABS 0.30 x10(3) 0.00 - 0.54 x10(3) [facility] Eosinophils/100 WBC (Bld) 4.9 % 0.5 - 4.9 % [facility] Erythrocyte distribution width (RBC) [Ratio] 14.6 % 12.5 - 15.7 % [facility] Hematocrit (Bld) [Volume fraction] 44.1 % 36.0 - 48.0 % [facility] Hemoglobin (Bld) [Mass/Vol] 14.2 g/dL 12.0 - 16.0 g/dL [facility] LYMPH ABS 1.20 x10(3) 1.00 - 3.50 x10(3) [facility] Lymphocytes/100 WBC (Bld) 18.1 % 16.0 - 48.0 % [facility] MCH (RBC) [Entitic mass] 29.9 pg 28.5 - 32.9 pg [facility] MCHC (RBC) [Mass/Vol] 32.2 g/dL Low 33.0 - 36.0 g/dL [facility] MCV (RBC) [Entitic vol] 92.9 fL 80.0 - 99.0 fl [facility] MONO ABS 0.50 x10(3) 0.30 - 0.80 x10(3) [facility] Monocytes/100 WBC (Bld) 7.8 % 4.3 - 11.2 % [facility] Neutrophil Ab 4.60 x10(3) 1.40 - 6.50 x10(3) [facility] Neutrophils/100 WBC (Bld) 68.2 % 45.0 - 73.0 % [facility] Platelet Count 238 X10(3) 150 - 450 X10(3) [facility] Platelet mean volume (Bld) [Entitic vol] 7.5 fL 7.5 - 9.5 fl [facility] RBC 4.75 x10(6) 3.30 - 5.00 x10(6) [facility] WBC 6.7 x10(3) 4.5 - 10.0 x10(3) [facility] Comprehensive metabolic 2000 panelon 06-28-2021 Albumin [Mass/Vol] 3.8 g/dL 3.5 - 5.2 g/dL [facility] Albumin/Globulin [Mass ratio] 1.05 {ratio} Low 1.1 - 2.5 [facility] ALP [Catalytic activity/Vol] 131 U/L High 35 - 105 U/L [facility] ALT [Catalytic activity/Vol] 43 U/L High 5 - 33 U/L [facility] Anion gap [Moles/Vol] 15.4 mmol/L 15 - 22 mmol/L [facility] AST [Catalytic activity/Vol] 42 U/L High 5 - 32 U/L [facility] Bilirubin [Mass/Vol] 0.6 mg/dL 0.2 - 1.2 mg/dL [facility] Calcium [Mass/Vol] 9.3 mg/dL 8.8 - 10. 2 mg/dL [facility] Chloride [Moles/Vol] 102 mmol/L 98 - 107 mmol/L [facility] CO2 [Moles/Vol] 27 mmol/L 22 - 29 mmol/L [facility] Creatinine [Mass/Vol] 0.76 mg/dL 0.50 - 0.90 mg/dL [facility] eGFR-All Other Races > 60 ml/Min/1.73m2 [facility] GFR/1.73 sq M.predicted among blacks MDRD (S/P/Bld) [Vol rate/Area] mL/min/{1.73_m2} [facility] Globulin (S) [Mass/Vol] 3.6 g/dL 1.5 - 4.5 g/dL [facility] Glucose [Mass/Vol] 132 mg/dL High 82 - 115 mg/dL Cl [facility] Potassium [Moles/Vol] 4.4 mmol/L 3.5 - 5.0 mmol/L [facility] Protein [Mass/Vol] 7.4 g/dL 6.4 - 8.3 g/dL Cl [facility] Sodium [Moles/Vol] 140 mmol/L 135 - 145 mmol/L [facility] Urea nitrogen [Mass/Vol] 12 mg/dL 8 - 23 mg/dL [facility] Culture, Urineon 03-13-2018 [facility] Urine Culture ORGANISM 1: Mixed Gram Pos AND Gram Neg Org Coral Count 25,000-50,000 MIX CULTURE Mixed contaminants. Submit a new specimen if indicated. Normal [facility] Comment on above: Performed By: #### M 100.0650 ####[facility] [address] [facility] [id number] Basic Metabolic Profile (BMP )on 03-11-2018 Calcium mass conc 8.8 mg/dL Normal 8.5-10.1 [facility] Comment on above: Performed By: #### L 500.2500 ####[facility] [address] [facility] [address] Chloride molar conc 108 mmol/L High 98-107 [facility] Comment on above: Performed By: #### L 500.2500 ####[facility] [address] [facility] [address] CO2 molar conc 27.0 mmol/L Normal 21.0-32.0 [facility] Comment on above: Performed By: #### L 500.2500 ####[facility] [address] [place], [address] Creatinine mass conc 0.85 mg/dL Normal 0.55-1.02 [facility] Comment on above: Result Comment: The validity of the calculated GFR AND GFRAA in patients over70 years has not been determined. Clinical correlation isessential. Performed By: #### L 500.2500 ####[facility] [address] [place], [address] EST GFR - AA 88 mL/min Normal >60 [facility] Comment on above: Result Comment: Afri can Cambodian GFR Calc Performed By: #### L 500.2500 ####[facility] [address] [place], [address] GAP 7 Normal 5-15 [facility] Comment on above: Performed By: #### L 500.2500 ####[facility] [address] [place], [address] GFR/1.73 sq M predicted among non-blacks MDRD vol rate/area (S/P/Bld) 73 mL/min/{1.73_m2} Normal >60 [facility] Comment on above: Result Comment: Non- GFR Calc Performed By: #### L 500.2500 ####[facility] [address] [place], [address] Glucose mass conc 110 mg/dL High 74-106 [facility] Comment on above: Result Comment: Fast ing Glucose result from 100 to 125 mg/dLsuggests IMPAIRED HOMEOSTASIS per A.D.A. criteria.Please note revised GLUCOSE reference range [id number]/02/2018. Performed By: #### L 500.2500 ####[facility] [address] [place], [address] Potassium molar conc 4.2 mmol/L Normal 3.5-5.1 [facility] Comment on above: Performed By: #### L 500.2500 ####[facility] [address] [place], [address] Sodium molar conc 142 mmol/L Normal 136-145 [facility] Comment on above: Performed By: #### L 500.2500 ####[facility] [address] [place], [address] Urea nitrogen mass conc 13 mg/dL Normal 7-18 [facility] Comment on above: Performed By: #### L 500.2500 ####[facility] [address] [place], [address] Urea nitrogen mass conc (Bld) 15.4 RATIO Normal 10-20 [facility] Comment on above: Performed By: #### L 500.2500 ####[facility] [address] [place], [address] CBC W/Diff, Automatedon - Absolute Neut 5.3 X10 3/uL Normal 2.0-7.7 [facility] Comment on above: Performed By: #### L 100.0100 ####[facility] [address] [place], [address] Basophils/100 WBC Auto (Bld) 0.5 % Normal 0-1 [facility] Comment on above: Performed By: #### L 100.0100 ####[facility] [address] [place], [address] Eosinophils/100 WBC Auto (Bld) 4.3 % Normal 0-5 [facility] Comment on above: Performed By: #### L 100.0100 ####[facility] [address] [place], [address] Erythrocyte distribution width Auto Ratio (RBC) 13.7 % Normal 11.6-14.6 [facility] Comment on above: Performed By: #### L 100.0100 ####[facility] [address] [place], [address] Hematocrit Auto Volume Fraction (Bld) 45.3 % Normal 37-47 [facility] Comment on above: Performed By: #### L 100.0100 ####[facility] [address] [place], [address] Hemoglobin mass conc (Bld) 14.8 g/dL Normal 12.0-15.0 [facility] Comment on above: Performed By: #### L 100.0100 ####[facility] [address] [place], [address] IM GRAN % 0.200 % Normal 0.0-0.9 [facility] Comment on above: Result Comment: IG% - Immature Granulocytes (promyelocytes, myelocytes andmetamyelocytes) > 1% indicates that a LEFT SHIFT is Present. Performed By: #### L 100.0100 ####[facility] [address] [place], [address] Lymphocytes Auto #/vol (Bld) 2.25 X10 3/ul Normal 0.83-4.51 [facility] Comment on above: Performed By: #### L 100.0100 ####[facility] [address] [place], [address] Lymphocytes/100 WBC Auto (Bld) 26.7 % Normal 19-41 [facility] Comment on above: Performed By: #### L 100.0100 ####[facility] [address] [place], [address] MCH Auto Entitic mass (RBC) 30.3 pg Normal 27.0-32.0 [facility] Comment on above: Performed By: #### L 100.0100 ####[facility] [address] [place], [address] MCHC Auto mass conc (RBC) 32.7 g/gl Normal 32-36 [facility] Comment on above: Performed By: #### L 100.0100 ####[facility] [address] [place], [address] MCV Auto Entitic volume (RBC) 92.6 fL Normal 81-99 [facility] Comment on above: Performed By: #### L 100.0100 ####[facility] [address] [place], [address] Monocytes/100 WBC Auto (Bld) 5.0 % Normal 0-10 [facility] Comment on above: Performed By: #### L 100.0100 ####[facility] [address] [place], [address] Neutrophils/100 WBC Auto (Bld) 63.3 % Normal 47-70 [facility] Comment on above: Performed By: #### L 100.0100 ####[facility] [address] [place], [address] Platelet mean volume Auto Entitic volume (Bld) 9.7 fL Normal 6.2-12.0 [facility] Comment on above: Performed By: #### L 100.0100 ####[facility] [address] [place], [address] Platelets Auto #/vol (Bld) 284 10*3/uL Normal 150-450 [facility] Comment on above: Performed By: #### L 100.0100 ####[facility] [address] [place], [address] RBC Auto #/vol (Bld) 4.89 M/mm3 Normal 4.2-5.4 [facility] Comment on above: Performed By: #### L 100.0100 ####[facility] [address] [place], [address] RDW SD 46.3 fl High 35.1-43.9 [facility] Comment on above: Performed By: #### L 100.0100 ####[facility] [address] [place], [address] WBC Auto #/vol (Bld) 8.4 10*3/uL Normal 4.4-11.0 [facility] Comment on above: Performed By: #### L 100.0100 ####[facility] [address] [place], [address] Partial Thromboplast Timeon 03-11-2018 aPTT Coag time (Bld) 31.4 s Normal 24.1-36.2 [facility] Comment on above: Performed By: #### L 300.3900, L300.4310 ####[facility] [address] [place], [address] Prothrombin Time w/INRon INR Coag RelTime (PPP) 1.0 {INR} Normal [facility] Comment on above: Performed By: #### L 300.3900, L300.4310 ####[facility] [address] [place], [address] Prothrombin time (PT) Coag time (PPP) 13.5 s Normal 11.7-14.9 [facility] Comment on above: Performed By: #### L 300.3900, L300.4310 ####[facility] [address] [place], [address] Urinalysis, Completeon 03-11 BACTERIA RARE Normal None Seen [facility] Comment on above: Order Comment: How w as Urine Obtained? CLEAN CATCH Performed By: #### L 400.0001 ####[facility] [address] [place], [address] HYALINE CAST 0 SEEN Normal 0-5 [facility] Comment on above: Order Comment: How w as Urine Obtained? CLEAN CATCH Performed By: #### L 400.0001 ####[facility] [address] [place], [address] MUCUS, URINE RARE Normal [facility] Comment on above: Order Comment: How w as Urine Obtained? CLEAN CATCH Performed By: #### L 400.0001 ####[facility] [address] [place], [address] RBC Test strip #/vol (U) 0 SEEN Normal 0-5 [facility] Comment on above: Order Comment: How w as Urine Obtained? CLEAN CATCH Performed By: #### L 400.0001 ####[facility] [address] [place], [address] SQUAM EPI 5-10 SEEN Normal 5-10 [facility] Comment on above: Order Comment: How w as Urine Obtained? CLEAN CATCH Performed By: #### L 400.0001 ####[facility] [address] [place], [address] WBC 0 SEEN Normal 0-5 [facility] Comment on above: Order Comment: How w as Urine Obtained? CLEAN CATCH Performed By: #### L 400.0001 ####[facility] [address] [place], [address] BILIRUBIN URINE Negative Normal Negative [facility] Comment on above: Order Comment: How w as Urine Obtained? CLEAN CATCH Performed By: #### L 400.0001 ####[facility] [address] [place], [address] CLARITY Sl. Cloudy Normal Clear [facility] Comment on above: Order Comment: How w as Urine Obtained? CLEAN CATCH Performed By: #### L 400.0001 ####[facility] [address] [place], [address] COLOR Yellow Normal Yellow [facility] Comment on above: Order Comment: How w as Urine Obtained? CLEAN CATCH Performed By: #### L 400.0001 ####[facility] [address] [place], [address] GLUCOSE, UR Normal Normal Normal [facility] Comment on above: Order Comment: How w as Urine Obtained? CLEAN CATCH Performed By: #### L 400.0001 ####[facility] [address] [place], [address] KETONE UR 5 mg/dl High Negative [facility] Comment on above: Order Comment: How w as Urine Obtained? CLEAN CATCH Performed By: #### L 400.0001 ####[facility] [address] [place], [address] LEUK ESTERASE Negative Normal Negative [facility] Comment on above: Order Comment: How w as Urine Obtained? CLEAN CATCH Performed By: #### L 400.0001 ####[facility] [address] [place], [address] NITRITE UR Negative Normal Negative [facility] Comment on above: Order Comment: How w as Urine Obtained? CLEAN CATCH Performed By: #### L 400.0001 ####[facility] [address] [place], [address] OCCULT BLOOD-UR Negative Normal Negative [facility] Comment on above: Order Comment: How w as Urine Obtained? CLEAN CATCH Performed By: #### L 400.0001 ####[facility] [address] [place], [address] pH UR 6.0 Normal 5.0 - 8.0 [facility] Comment on above: Order Comment: How w as Urine Obtained? CLEAN CATCH Performed By: #### L 400.0001 ####[facility] [address] [place], [address] Protein mass conc 15 mg/dl High Negative [facility] Comment on above: Order Comment: How w as Urine Obtained? CLEAN CATCH Performed By: #### L 400.0001 ####[facility] [address] [place], [address] SP.GR. DIPSTX 1.020 Normal 1.002-1.030 [facility] Comment on above: Order Comment: How w as Urine Obtained? CLEAN CATCH Performed By: #### L 400.0001 ####[facility] [address] [place], [address] UROBILI Normal Normal Normal [facility] Comment on above: Order Comment: How w as Urine Obtained? CLEAN CATCH Performed By: #### L 400.0001 ####[facility] [address] [place], [address] Vital Signs Date Time Vital Sign Value Performing Clinician Faci lity 08-07-2024 08:02-0400 Diastolic blood pressure 76 mm[Hg] Sona Mbanugo DO Work Phone: [facility] 08-07-2024 08:02-0400 Heart rate 79 /min Sona Mbanugo DO Work Phone: [facility] 08-07-2024 08:02-0400 SaO2% (BldA) [Mass fraction] 91 % Sona Mbanugo DO Work Phone: [facility] 08-07-2024 08:02-0400 Systolic blood pressure 114 mm[Hg] Sona Mbanugo DO Work Phone: [facility] 07-24-2024 08:33-0400 Diastolic blood pressure 83 mm[Hg] Sona Mbanugo DO Work Phone: [facility] 07-24-2024 08:33-0400 Systolic blood pressure 130 mm[Hg] Sona Mbanugo DO Work Phone: [facility] 07-24-2024 08:32-0400 Heart rate 97 /min Sona Mbanugo DO Work Phone: [facility] 07-07-2024 14:21-0400 Diastolic blood pressure 78 mm[Hg] Sona Mbanugo DO Work Phone: [facility] 07-07-2024 14:21-0400 Systolic blood pressure 132 mm[Hg] Sona Mbanugo DO Work Phone: [facility] 07-07-2024 13:34-0400 Heart rate 99 /min Sona Mbanugo DO Work Phone: [facility] 07-07-2024 13:34-0400 SaO2% (BldA) [Mass fraction] 92 % Sona Mbanugo DO Work Phone: [facility] 06-23-2024 13:29-0400 Body height 160 cm Chantal Young DO Work Phone: [facility] 06-23-2024 13:29-0400 Body mass index (BMI) [Ratio] 54.87 kg/m2 Chantal Nazzaro DO Work Phone: [facility] 06-23-2024 13:29-0400 Body weight 140.5 kg Chantal Nazzaro DO Work Phone: [facility] 06-23-2024 13:29-0400 Diastolic blood pressure 64 mm[Hg] Chantal Nazzaro DO Work Phone: [facility] 06-23-2024 13:29-0400 Heart rate 75 /min Chantal Nazzaro DO Work Phone: [facility] 06-23-2024 13:29-0400 Respiratory rate 18 /min Chantal Nazzaro DO Work Phone: [facility] 06-23-2024 13:29-0400 SaO2% (BldA) [Mass fraction] 98 % Chantal Nazzaro DO Work Phone: [facility] 06-23-2024 13:29-0400 Systolic blood pressure 129 mm[Hg] Chantal Nazzaro DO Work Phone: [facility] 12-16-2021 12:09-0400 Body height 162.6 cm Caroline Buckley APRN.PARTS ROOM ASSOCIATE Work Phone: [facility] 12-16-2021 12:09-0400 Body temperature 99.1 [degF] Caroline Buckley LINING CLEANER.PARTS ROOM ASSOCIATE Work Phone: [facility] 12-16-2021 12:09-0400 Body weight 122.47 kg Caroline Buckley LINING CLEANER.PARTS ROOM ASSOCIATE Work Phone: [facility] 12-16-2021 12:09-0400 Diastolic blood pressure 74 mm[Hg] Caroline Buckley LINING CLEANER.PARTS ROOM ASSOCIATE Work Phone: [facility] 12-16-2021 12:09-0400 Heart rate 103 /min Caroline Buckley LINING CLEANER.PARTS ROOM ASSOCIATE Work Phone: [facility] 12-16-2021 12:09-0400 SaO2% (BldA) [Mass fraction] 95 % Caroline Buckley LINING CLEANER.PARTS ROOM ASSOCIATE Work Phone: [facility] 12-16-2021 12:09-0400 Systolic blood pressure 133 mm[Hg] Caroline Buckley LINING CLEANER.PARTS ROOM ASSOCIATE Work Phone: [facility] Encounters Encounter Date Encounter Type Care Provider Facility Start: 09-03-2024 End: 09-03-2024 Patient encounter procedure [facility] Faby Mendoza Work Phone: Urology Comment on above: Urinary incontinence , mixed (Primary Dx); Nocturia Start: 09-03-2024 End: 09-03-2024 ambulatory KRISTYN AGUILARFRANDY Facility:[id number] Start: 08-09-2024 End: 08-09-2024 Telephone encounter Sona Mbanugo DO Work Phone: [facility] Urology Start: 08-07-2024 End: 08-07-2024 Office outpatient visit 15 minutes Sona Mbanugo DO Work Phone: [facility] Comment on above: Urinary incontinence , mixed (Primary Dx); Nocturia; Nocturnal enuresis; History of UTI Start: 08-07-2024 End: 08-07-2024 ambulatory SONA MBANUGO Facility:[id number] Start: 07-24-2024 End: 07-24-2024 Office outpatient visit 15 minutes Sona Mbanugo DO Work Phone: [facility] Comment on above: Urinary incontinence , mixed (Primary Dx); Nocturia; Nocturnal enuresis; History of UTI Start: 07-24-2024 End: 07-24-2024 ambulatory SONA MBANUGO Facility:[id number] Start: 07-07-2024 End: 07-07-2024 ambulatory SONA MBANUGO Facility:[id number] Start: 07-07-2024 End: 07-07-2024 Office outpatient new 30 minutes Sona Mbanugo DO Work Phone: [facility] Comment on above: Urinary incontinence , mixed (Primary Dx); Nocturia; Nocturnal enuresis; History of UTI Start: 06-23-2024 End: 06-23-2024 Patient encounter procedure Chantal Young DO Work Phone: [facility] Obstetrics and Gynecology Comment on above: Mixed incontinence ( Primary Dx); Encounter for screening for malignant neoplasm of cervix Start: 06-23-2024 End: 06-23-2024 ambulatory CHANTAL YOUNG Facility:[id number] Start: 04-27-2024 End: 04-27-2024 Emergency department patient visit KRISTYN LOPEZ Facility:[id number] Start: 10-31-2023 End: 11-01-2023 Emergency department patient visit JOSIAS BUTTS DARRYL Facility:[id number] Start: 08-26-2023 End: 08-26-2023 ambulatory KRISTYN AGUILAREDEL Facility:A Start: 08-26-2023 End: 08-26-2023 Patient encounter procedure CURRY HAYWARD LINING CLEANER-PARTS ROOM ASSOCIATE [facility] Start: 07-26-2023 End: 07-26-2023 ambulatory KRISTYN AGUILAREDEL Facility:A Start: 07-26-2023 End: 07-26-2023 Patient encounter procedure CURRY HAYWARD LIN[employer] CLE[employer]-PARTS ROOM ASSOCIATE [facility] Start: 07-11-2023 End: 07-15-2023 ambulatory KRISTYN AGUILAREDEL Facility:A Start: 07-11-2023 End: 07-11-2023 ambulatory KRISTYN AGUILAREDEL Facility:A Start: 07-11-2023 End: 07-11-2023 Patient encounter procedure CURRY HAYWARD LIN[employer] CLE[employer]-PARTS ROOM ASSOCIATE [facility] Start: 07-18-2022 ambulatory KRISTYN E LAURENEDEL Facilit y:UNI Start: 07-18-2022 End: 07-18-2022 Subsequent hospital visit by physician Provider [facility] Comment on above: E11.9 Start: 12-17-2021 Telephone encounter Jaye Ledg er LINING CLEANER.PARTS ROOM ASSOCIATE Work Phone: [facility] Comment on above: Results Start: 12-16-2021 Telephone encounter Jaye costa LINING CLEANER.PARTS ROOM ASSOCIATE Work Phone: [facility] Comment on above: Results Start: 12-16-2021 End: 12-16-2021 ambulatory Facility:[facility] Start: 12-16-2021 End: 12-16-2021 Subsequent hospital visit by physician Provider [facility] Start: 12-16-2021 End: 12-16-2021 Patient encounter procedure Caroline Katie Buckley LINING CLEANER.PARTS ROOM ASSOCIATE Work Phone: [facility] Comment on above: Acute midline low ba ck pain with bilateral sciatica (Primary Dx); Neck pain, acute Start: 06-28-2021 End: 06-28-2021 Subsequent hospital visit by physician Provider [facility] Comment on above: R73.03 M17.10 Z00.00 Start: 05-16-2021 ambulatory [facility] Start: 03-17-2018 Encounter for other preprocedural examination [facility] Start: 03-11-2018 Patient encounter procedure [facility] Facility:[facility] Procedures Date Procedure Procedure Detail Performing Clinician Start: 07-07-2024 Urnls dip stick/tabl et rgnt auto w/o microscopy Soan Bruno DO Work Phone: Start: 07-17-2023 Lipid 1996 panel - S lencho or Plasma Chantal Young DO Work Phone: Start: 07-18-2022 CBC + DIFF Kristyn figueroa MD Work Phone: Start: 07-18-2022 Comprehensive metabo lic 2000 panel - Serum or Plasma Kristyn Lopez MD Work Phone: Start: 07-18-2022 LIPID PANEL BASIC Jagruti Lopez MD Work Phone: Start: 07-18-2022 TSH BLD Kristyn figueroa MD Work Phone: Start: 07-18-2022 Lipid 1996 panel - S lencho or Plasma Provider [facility] Start: 12-16-2021 Radex spine cervical 4 or 5 views Caroline Buckley LINING CLEANER.PARTS ROOM ASSOCIATE Work Phone: Start: 12-16-2021 Radiologic exam ches t 2 views Carolinebrandon Buckley LINING CLEANER.PARTS ROOM ASSOCIATE Work Phone: Start: 06-28-2021 CBC + DIFF Kristyn Carmentom duong Miloriel Work Phone: Start: 06-28-2021 Comprehensive metabo lic 2000 panel - Serum or Plasma Kristyn Chauhan Jessica Work Phone: Start: 06-28-2021 Hemoglobin A1c/Hemoglobin.total in Blood Kristyn Lopez Work Phone: Start: 03-25-2018 Bilateral knee joint s (body structure) CURRY HAYWARD LINING CLEANER-PARTS ROOM ASSOCIATE Plan of Treatment Date Care Activity Detail Author Start: 07-16-2028 Lipid panel Lipid Screening [facility] Start: 07-19-2027 Lipid 1996 panel - S lencho or Plasma Lipid Screening [facility] Start: 04-27-2027 Diabetes Screening [facility] Start: 07-18-2025 Diabetes Screening [facility] Start: 09-17-2024 End: 09-17-2024 Patient encounter procedure 09/17/2024 1:00 PM EDT Office Visit Urology [facility] [place] [address] [facility] Comment on above: [facility] Start: 09-16-2024 End: 09-16-2024 Patient encounter procedure 09/16/2024 1:15 PM EDT Office Visit [facility] Obstetrics and Gynecology [address] [place] [address] [place] [address] Dwaine Montesinos MD [address] [place] [address] [place] [address] follow from Urology consult, for Bladder Sling [facility]necology Comment on above: follow from Urology consult, for Bladder Sling Start: 09-09-2024 End: 09-09-2024 Patient encounter procedure 09/09/2024 2:40 PM EDT Office Visit [facility] [address] [place] [id number] DmitridebjorgitoSona, [address] [place] [address] f/u 1 month F/u oxybutynin 1m; NEED NEW UA, NEW PVR [facility] Comment on above: f/u 1 month F/u oxy butynin 1m; NEED NEW UA, NEW PVR Start: 08-07-2024 End: 08-07-2024 Patient encounter procedure 08/07/2024 8:00 AM EDT Office Visit [facility] [address] [place] [address] Sona Bruno, [address] [place] [address] f/u 1-2 cystp, uroflow diary results [facility] Comment on above: f/u 1-2 cystp, urof low diary results Start: 07-24-2024 End: 07-24-2024 Patient encounter procedure 07/24/2024 8:40 AM EDT Office Visit [facility] [address] [place] [id number] JakeFloresitaSona, [address] [place] [address] f/u cysto/pelvic/uroflow/P VR; [facility] Comment on above: f/u cysto/pelvic/uro flow/PVR; Start: 07-22-2024 End: 07-22-2024 Patient encounter procedure 07/22/2024 1:45 PM EDT Office Visit [facility] Obstetrics and Gynecology [address] [place] [address] Dwaine Montesinos MD [address] [place] [address] [place], [place] [id number] follow from Urology consult, for Bladder Sling [facility] Comment on above: follow from Urology consult, for Bladder Sling Start: 07-07-2024 End: 07-07-2024 Patient encounter procedure 07/07/2024 1:20 PM EDT Office Visit [facility] [address] [place] [address] Sona Bruno DO [address] [place] [address] Mixed incontinence [N39.46] [facility] Comment on above: Mixed incontinence [ N39.46] Start: 06-28-2024 DIABETES SCREEN DIABETES SCREEN [facility] Start: 03-25-2024 Advance Directive Discussion Advance Directive Discussion [facility] Start: 03-25-2024 Medicare Advantage A nnual Wellness Visit Medicare Advantage Annual Wellness Visit [facility] Start: 11-24-2023 Covid-19 Vaccine ( season) Covid-19 Vaccine ( season) [facility] Start: 06-06-2023 Screening for osteoporosis Bone Dens ity Screening [facility] Start: 11-23-2022 Influenza vaccination Influenza Vacc ine (#1) [facility] Start: 03-25-2022 Depression Assessment Depression Ass essment [facility] Start: 11-23-2021 Influenza vaccination INFLUENZA (#1) [facility] Start: 2018 RSV Vaccine (1 - Ris k 60-74 years 1-dose series) RSV Vaccine (1 - Risk 60-74 years 1-dose series) [facility] Start: 2008 Pneumococcal Vaccine : 50+ (1 of 1 - PCV) Pneumococcal Vaccine: 50+ (1 of 1 - PCV) [facility] Start: 2008 SHINGRIX VACCINE (1 of 2) VEGA GRIX VACCINE (1 of 2) [facility] Start: 06-06-2003 COLOGUARD (FIT-DNA) COLOGUARD (FIT-D NA) [facility] Start: 06-06-2003 Colonoscopy COLONOSCOPY [facility] Start: 06-06-2003 COLORECTAL CANCER SCREENING CO LORECTAL CANCER SCREENING [facility] Start: 06-06-[address] COLONOGRAPHY [facility] Start: 06-06-2003 FECAL OCCULT BLOOD FECAL OCCULT BLOO D [facility] Start: 06-06-2003 LIPID SCREEN LIPID SCREEN [facility] Start: 06-06-2003 Screening for malign ant neoplasm of colon [facility] Start: 06-06-2003 SIGMOIDOSCOPY SIGMOIDOSCOPY [facility] Start: 1998 Mammography [facility] Start: 1998 Screening for malign ant neoplasm of breast Mammogram Screening [facility] Start: 1988 HPV TESTING HPV TESTING [facility] Start: 06-06-1979 PAP TESTING PAP TESTING [facility] Start: 1977 Urine microalbumin profile [facility] Start: 1976 Anxiety Screening Anxiety Screening [facility] Start: 1976 Depression Screening Depression Scre ening [facility] Start: 1976 HEPATITIS C SCREENING HEPATITIS C SC REENING [facility] Start: 1976 HIV SCREENING HIV SCREENING [facility] Start: 1970 Adult depression scr eening assessment DEPRESSION SCREENING [facility] Start: 1958 COVID-19 VACCINE (#1) COVID-19 VACCI NE (#1) [facility] Complex uroflometry FLOW RATE Pr ocedures Routine Urinary incontinence, mixed Ordered: 07/07/2024 [facility] Comment on above: Ordered: 07/07/2024 Cystourethroscopy CYSTO.PANENDO Procedures Routine Urinary incontinence, mixed Ordered: 07/07/2024 [facility] Work Phone: Comment on above: Ordered: 07/07/2024 Erasto post-voiding re sidual urine&/bladder cap US MSR POST-VOID RESID URINE Procedures Routine Urinary incontinence, mixed Ordered: 07/07/2024 [facility] Comment on above: Ordered: 07/07/2024 PAP TEST PAP TEST Lab Rou iglesia Encounter for screening for malignant neoplasm of cervix 06/23/2024 2:34 PM EDT [facility] Work Phone: End: 01-15-2023 Radex spine cervical 4 or 5 views XR CERV OTHER 4V AP/LAT/OBL Radiology Routine Neck pain, acute 1 Occurrences starting 12/16/2021 until 01/15/2023 [facility] Work Phone: Comment on above: 1 Occurrences starti ng 12/16/2021 until 01/15/2023 End: 01-15-2023 Radex spine lumbosacral minimum 4 views XR LUMBAR PARS DEFECT 4V AP/LAT/BOTH OBL Radiology Routine Acute midline low back pain with bilateral sciatica 1 Occurrences starting 12/16/2021 until 01/15/2023 [facility] Work Phone: Comment on above: 1 Occurrences starti ng 12/16/2021 until 01/15/2023 End: 01-15-2023 Radex spine thoracic 2 views XR THORACIC LIMITED 2V AP/LAT Radiology Routine Acute midline low back pain with bilateral sciatica 1 Occurrences starting 12/16/2021 until 01/15/2023 [facility] Work Phone: Comment on above: 1 Occurrences starti ng 12/16/2021 until 01/15/2023 URODYNAMICS URODYNAMICS Proc edures Routine Urinary incontinence, mixed Ordered: 08/07/2024 [facility] Work Phone: Comment on above: Ordered: 08/07/2024 Payers Date Payer Category Payer Private Health Insurance [id number] 2023 Medicare (Managed Care) ANTONIA MACHUCA [id number] 2023 Private Health Insurance [facility] [id number] 2018 Self-pay 2018 Unknown [id number] 1960 Unknown [id number] 1958 Unknown [id number] 1958 Unknown [id number] 1958 Unknown [id number] Unknown [id number] Unknown [id number] Social History Date Type Detail [facility] Start: 1960 Sex Assigned At Not on file [facility] Start: 12-16-2021 End: 07-11-2023 Tobacco smoking status VTIS Never smoked tobacco [facility] Start: 12-16-2021 Tobacco use and exposure Smokeless t obacco non-user [facility] Start: 12-16-2021 End: 09-04-2024 Alcohol intake Ex-drinker (finding) [facility] Start: 12-06-2021 End: 12-16-2021 Exposure to SARS-CoV-2 (event) Not sure [facility] Start: 12-16-2021 End: 04-28-2024 History of Social function [facility] Start: 12-16-2021 End: 04-28-2024 Tobacco use panel [facility] Sex Assigned At Sex [facility] National Score (1-10 0), lower number is lower risk 82 [facility] Clinical Notes 12-16-2021 to 09-04-2024 Shreyas Montiel RN - 09/04/2024 10:07 AM EDTTelephone Encounter - Sona Bruno DO - 08/09/2024 11:15 PM EDTTelephone Encounter - Sona Bruno DO - 08/09/2024 11:15 PM EDTRadiology Note Date & Type Note Facility 09-04-2024 Note HNO ID: [id number] Author: SHREYAS MONTIEL RN Service: ? Author Type: Registered Nurse Type: Progress Notes Filed: 09/04/2024 12:45 Note Text: Patient here for a Urodynamic study. Patient was explained the procedure in detail. She agreed to proceed. Denies s/sx of UTI. Urine dip was negative for infection. The patient was laid back in the UDS chair and all catheters and leads were placed per protocol, one in the rectum and one in the urethra. Hooked the patient up to the ROAM monitor, catheters connected and charged. While laying back the pressures were reading for approximately 10 seconds, and then the pVES and pABD graphing dropped to 0 and were not reading appropriately. I attempted to trouble shoot the machine with repositioning the catheters, opening and recharging with no success. The equipment/software is Laborie. At that time, I made the patient aware that I am having equipment/software issues, and that we will have to reschedule the test if she is willing. I apologized to the patient for the inconvenience. The patient was very understanding and we rescheduled her for 09/17/24 at 1 pm. Administrative Assistant offered: Patient declines. Shreyas Montiel RN [facility] 09-04-2024 History of Presen t illness Narrative Patient here for a Urodynamic study. Patient was explained the procedure in detail. She agreed to proceed. Denies s/sx of UTI. Urine dip was negative for infection. The patient was laid back in the UDS chair and all catheters and leads were placed per protocol, one in the rectum and one in the urethra. Hooked the patient up to the ROAM monitor, catheters connected and charged. While laying back the pressures were reading for approximately 10 seconds, and then the pVES and pABD graphing dropped to 0 and were not reading appropriately. I attempted to trouble shoot the machine with repositioning the catheters, opening and recharging with no success. The equipment/software is [employer]ie. At that time, I made the patient aware that I am having equipment/software issues, and that we will have to reschedule the test if she is willing. I apologized to the patient for the inconvenience. The patient was very understanding and we rescheduled her for 09/17/24 at 1 pm. Administrative Assistant offered: Patient declines. Shreyas Montiel RN documented in this encounter [facility] 08-09-2024 Telephone encounter Note Please schedule for UDS at [facility] in August if possible , office follow up with me ~2 weeks after thank yo Sona Bruno DO [facility] 08-09-2024 Miscellaneous Notes Please schedule for UDS at [facility] in August if possible , office follow up with me ~2 weeks after thank yo Sona Bruno DO documented in this encounter [facility] 08-09-2024 Telephone encounter Note Rubio evening, Forwarding for referral for pessary fitting for 64 yo F with significant BRENNA , also managing her frequency/urgency with oxybutynin that was started 08/07/24 (she has some voiding dysfunction so also ordering UDS at [facility]) Sona Bruno DO [facility] 08-09-2024 Miscellaneous Notes Rubio evening, Forwarding for referral for pessary fitting for 64 yo F with significant BRENNA , also managing her frequency/urgency with oxybutynin that was started 08/07/24 (she has some voiding dysfunction so also ordering UDS at [facility]) Sona Bruno DO documented in this encounter [facility] 08-07-2024 Instructions Sona Bruno DO - 08/07/2024 8:30 AM EDT Bladder Irritants Certain foods and beverages are very irritating to the bladder and are known as bladder irritants. Below is a list of bladder irritants to AVOID completely or consume in MODERATION. 1.Caffeine - Coffee (including decaf) - Tea (including green tea) - Pop/Soda (including caffeine free) -Chocolate 2. Acid - Citris fruits and juices (cranberry, orange, grapefruit) - Tomatoes (including tomatoe juice, tomato sauce, salsa) - Carbonated drinks (including carbonated water) 3. Concentrated urine (that is yellow, dark yellow or orange in color) from not drinking enough water. 4. Alcohol 5. Highly spiced foods (pepper, hot sauce,etc). 6. Sugar and/or artificial sweeteners. [employer] at home, website is below is long to type [email or web address]/ [email or web address].html?utm_te rm=[email or web address]_pur ewick%20at%20home&trkid=m8_sem_ google_[id number] _purewick%20at%20home&gad_sourc e=1&gad_campaignid=[email or web address] 395&gbraid=[email or web address] [id number]&[email or web address]&gclsrc=aw.ds documented in this encounter [facility] 08-07-2024 Note HNO ID: [id number] Author: SONA BRUNO DO Service: ? Author Type: Physician Type: Progress Notes Filed: 08/09/2024 23:18 Note Text: [facility] [place] ESTABLISHED PATIENT NOTE/HISTORY AND PHYSICAL PATIENT: Rehan Eugene (64 year old) PCP: Kristyn Lopez MD DATE OF SERVICE: 08/07/2024 SUBJECTIVE: CHIEF COMPLAINT: Follow Up (Patient has no new complaints and states that she did complete diary. ) HISTORY OF PRESENT ILLNESS: Recording using [employer] software for draft documentation of the visit was discussed with the patient/authorized employment representative; all questions welcomed and answered. Patient/authorized employment representative agreed to proceed The patient was last seen by Sona Bruno DO on 07/24/24 . Prior notes were reviewed. Patient returns today for follow up . In interim doing ok , has no new complaints ; here for cysto/Uroflow results. Most bothered by the erica of urine . Review of Symptoms: Genitourinary: See HPI Constitutional: unintentional weight loss - denies, fevers - denies Cardiovascular: new or worsening chest pain - denies Respiratory: new or worsening shortness of breath - denies Gastrointestinal: constipation - denies, vomiting - denies Hematologic/Lymphatic: easy bleeding or bruising - denies Past Medical History: -Patient has a past medical history of Arthritis and Asthma (HCC). Past Surgical History: -Patient has a past surgical history that includes knee surgery hx (Bilateral). Medications: -Patient has a current medication list which includes the following prescription(s): oxybutynin, celecoxib, duloxetine, tizanidine, and prednisone. Allergies: -Patient has no known allergies. Family History: -Patient family history includes Cancer in her father. Social History: -Patient reports that she has never smoked. She has never used smokeless tobacco. She reports that she does not currently use alcohol. She reports current drug use. Drug: Marijuana. I have confirmed and edited as necessary, the PFSH and ROS obtained by others. OBJECTIVE: PHYSICAL EXAMINATION: BP 114/76 Pulse 79 LMP (LMP Unknown) SpO2 91% Constitutional: Non-toxic , No acute distress. Psych: Calm, cooperative Eyes: Lids appear normal. Conjunctivae are not injected. Respiratory: No acute respiratory distress. No audible wheeze. : No [place] DATA: Clinic: Urine dipstick shows: URINALYSIS: GLUCOSE UA (POCT) Negative 07/07/2024 BILIRUBIN UA (POCT) Negative 07/07/2024 KETONE UA (POCT) Negative 07/07/2024 SPECIFIC GRAVITY UA (POCT) >=1.030 07/07/2024 HEMOGLOBIN/BLOOD UA (POCT) Negative 07/07/2024 PH UA (POCT) 6.0 07/07/2024 PROTEIN UA (POCT) Trace 07/07/2024 UROBILINOGEN UA (POCT) 0.2 07/07/2024 NITRITE UA (POCT) Negative 07/07/2024 LEUKOCYTES UA (POCT) Negative 07/07/2024 COLOR UA (POCT) Yellow 07/07/2024 CLARITY UA (POCT) Clear 07/07/2024 Laboratory: Creatinine Date Value Ref Range Status 04/27/2024 0.79 0.58 - 0.96 mg/dL Final 10/31/2023 0.88 0.58 - 0.96 mg/dL Final 07/17/2023 0.89 0.58 - 0.96 mg/dL Final 07/18/2022 0.84 0.50 - 0.90 mg/dL Final Cultures: No data to display Susceptibility Tests - Past 1 Year No results found for the last 365 days. ASSESSMENT AND PLAN Rehan Eugene is 64 year old with: (N39.46) Urinary incontinence, mixed (primary encounter diagnosis) (R35.1) Nocturia (N39.44) Nocturnal enuresis (Z87.440) History of UTI Medical records personally reviewed and found significant for: PAP As background copied from prior notes, changes made: 64 yo F with chronic stable DEVANTE, reporting BRENNA = UUI, frequency, urgency, nocturia x6-7, nocturnal enuresis. Wears 3ppd. Saw [facility] recommended sling then, not done 2/2 insurance issues. Significant bother and worsening in past year especially . Had remote UTIs . Cr WNL 2024 Given bladder diary /hat. Returned and voids in daytime q10-270 min, nocturia x4 on this diary. Total UOP less accurate as she leaked before reaching toilet. Had strong urge and changing underwear/pads mulitple times/day. Cysto/pelvic, unable do full pelvic given difficulty positioning but on cysto, small capacity, strong urge after only filling to ~150cc and big leak with cough, Uroflow intermittent/saw tooth with good qmax, empties well . Given abnormal , potentially dysfunctional voiding, recommended UDS. She was eager for therapies for her sx. Declined PFPT. Discussed meds (common s/e), she accepted them. Rx sent oxybutynin. Also interested in pessary, until UDS holding off on recommending BRENNA procedure Plan: Rx sent oxybutynin for urge/frequency/UUI; f/u 1month PVR UDS Declines PFPT Send for pessary fitting -Patient will call the clinic or use MyChart should anything change or any new issues arise -All questions were answered Sona Bruno DO Staff Urologist Please note: This note has been produced using speech recognition software and (more content not included)... [facility] 08-07-2024 History of Presen t illness Narrative Images from the original note were not included. [facility] ESTABLISHED PATIENT NOTE/HISTORY AND PHYSICAL PATIENT: Rehan Eugene (64 year old) PCP: Kristyn Lopez MD DATE OF SERVICE: 08/07/2024 SUBJECTIVE: CHIEF COMPLAINT: Follow Up (Patient has no new complaints and states that she did complete diary. ) HISTORY OF PRESENT ILLNESS: Recording using [employer] software for draft documentation of the visit was discussed with the patient/authorized employment representative; all questions welcomed and answered. Patient/authorized employment representative agreed to proceed The patient was last seen by Sona Bruno DO on 07/24/24 . Prior notes were reviewed. Patient returns today for follow up . In interim doing ok , has no new complaints ; here for cysto/Uroflow results. Most bothered by the erica of urine . Review of Symptoms: Genitourinary: See HPI Constitutional: unintentional weight loss - denies, fevers - denies Cardiovascular: new or worsening chest pain - denies Respiratory: new or worsening shortness of breath - denies Gastrointestinal: constipation - denies, vomiting - denies Hematologic/Lymphatic: easy bleeding or bruising - denies Past Medical History: -Patient has a past medical history of Arthritis and Asthma (HCC). Past Surgical History: -Patient has a past surgical history that includes knee surgery hx (Bilateral). Medications: -Patient has a current medication list which includes the following prescription(s): oxybutynin, celecoxib, duloxetine, tizanidine, and prednisone. Allergies: -Patient has no known allergies. Family History: -Patient family history includes Cancer in her father. Social History: -Patient reports that she has never smoked. She has never used smokeless tobacco. She reports that she does not currently use alcohol. She reports current drug use. Drug: Marijuana. I have confirmed and edited as necessary, the PFSH and ROS obtained by others. OBJECTIVE: PHYSICAL EXAMINATION: BP 114/76 Pulse 79 LMP (LMP Unknown) SpO2 91% Constitutional: Non-toxic , No acute distress. Psych: Calm, cooperative Eyes: Lids appear normal. Conjunctivae are not injected. Respiratory: No acute respiratory distress. No audible wheeze. : No [place] DATA: Clinic: Urine dipstick shows: URINALYSIS: GLUCOSE UA (POCT) Negative 07/07/2024 BILIRUBIN UA (POCT) Negative 07/07/2024 KETONE UA (POCT) Negative 07/07/2024 SPECIFIC GRAVITY UA (POCT) >=1.030 07/07/2024 HEMOGLOBIN/BLOOD UA (POCT) Negative 07/07/2024 PH UA (POCT) 6.0 07/07/2024 PROTEIN UA (POCT) Trace 07/07/2024 UROBILINOGEN UA (POCT) 0.2 07/07/2024 NITRITE UA (POCT) Negative 07/07/2024 LEUKOCYTES UA (POCT) Negative 07/07/2024 COLOR UA (POCT) Yellow 07/07/2024 CLARITY UA (POCT) Clear 07/07/2024 Laboratory: Creatinine Date Value Ref Range Status 04/27/2024 0.79 0.58 - 0.96 mg/dL Final 10/31/2023 0.88 0.58 - 0.96 mg/dL Final 07/17/2023 0.89 0.58 - 0.96 mg/dL Final 07/18/2022 0.84 0.50 - 0.90 mg/dL Final Cultures: No data to display Susceptibility Tests - Past 1 Year No results found for the last 365 days. ASSESSMENT AND PLAN Rehan Eugene is 64 year old with: (N39.46) Urinary incontinence, mixed (primary encounter diagnosis) (R35.1) Nocturia (N39.44) Nocturnal enuresis (Z87.440) History of UTI Medical records personally reviewed and found significant for: PAP As background copied from prior notes, changes made: 64 yo F with chronic stable DEVANTE, reporting BRENNA = UUI, frequency, urgency, nocturia x6-7, nocturnal enuresis. Wears 3ppd. Saw [facility] recommended sling then, not done 2/2 insurance issues. Significant bother and worsening in past year especially . Had remote UTIs . Cr WNL 2024 Given bladder diary /hat. Returned and voids in daytime q10-270 min, nocturia x4 on this diary. Total UOP less accurate as she leaked before reaching toilet. Had strong urge and changing underwear/pads mulitple times/day. Cysto/pelvic, unable do full pelvic given difficulty positioning but on cysto, small capacity, strong urge after only filling to ~150cc and big leak with cough, Uroflow intermittent/saw tooth with good qmax, empties well . Given abnormal , potentially dysfunctional voiding, recommended UDS. She was eager for therapies for her sx. Declined PFPT. Discussed meds (common s/e), she accepted them. Rx sent oxybutynin. Also interested in pessary, until UDS holding off on recommending BRENNA procedure Plan: Rx sent oxybutynin for urge/frequency/UUI; f/u 1month PVR UDS Declines PFPT Send for pessary fitting -Patient will call the clinic or use [facility] should anything change or any new issues arise -All questions were answered Sona Bruno DO Staff Urologist Please note: This note has been produced using speech recognition software and may contain errors related to that system including grammar, punctuation, spelling, gender and words and phrases that may be inappropriate. documented in this encounter [facility] 07-24-2024 Note HNO ID: [id number] Author: SONA BRUNO DO Service: ? Author Type: Physician Type: Progress Notes Filed: 07/24/2024 13:38 Note Text: [facility] ESTABLISHED PATIENT NOTE/HISTORY AND PHYSICAL PATIENT: Rehan Eugene (64 year old) PCP: Kristyn Lopez MD DATE OF SERVICE: 07/24/2024 SUBJECTIVE: CHIEF COMPLAINT: Follow Up (Cystoscopy. ) HISTORY OF PRESENT ILLNESS: Recording using [employer] software for draft documentation of the visit was discussed with the patient/authorized employment representative; all questions welcomed and answered. Patient/authorized employment representative agreed to proceed The patient was last seen by Sona Bruno DO on 07/07/24 . Prior notes were reviewed. Patient returns today for follow up . In interim doing ok. The patient reports no changes since her last visit and denies current symptoms of a UTI. She has been using approximately 7 diapers per day. She brought a bladder diary to the appointment, noting that it may not be entirely accurate due to the frequency of her urinary episodes. She has been taking Keflex. She denies history of breast cancer, uterine cancer, or abnormal Pap smears. She is sexually active approximately twice a week and denies dyspareunia. Review of Symptoms: Genitourinary: See HPI Constitutional: unintentional weight loss - denies, fevers - denies Cardiovascular: new or worsening chest pain - denies Respiratory: new or worsening shortness of breath - denies Gastrointestinal: constipation - denies, vomiting - denies Hematologic/Lymphatic: easy bleeding or bruising - denies Past Medical History: -Patient has a past medical history of Arthritis and Asthma (HCC). Past Surgical History: -Patient has a past surgical history that includes knee surgery hx (Bilateral). Medications: -Patient has a current medication list which includes the following prescription(s): celecoxib, duloxetine, tizanidine, and prednisone. Allergies: -Patient has no known allergies. Family History: -Patient family history includes Cancer in her father. Social History: -Patient reports that she has never smoked. She has never used smokeless tobacco. She reports that she does not currently use alcohol. She reports current drug use. Drug: Marijuana. I have confirmed and edited as necessary, the PFSH and ROS obtained by others. OBJECTIVE: PHYSICAL EXAMINATION: BP 130/83 Pulse 97 LMP (LMP Unknown) Constitutional: Non-toxic , No acute distress. Psych: Calm, cooperative Eyes: Lids appear normal. Conjunctivae are not injected. Respiratory: No acute respiratory distress. No audible wheeze. : No [place] DATA: Clinic: Urine dipstick shows: URINALYSIS: GLUCOSE UA (POCT) Negative 07/07/2024 BILIRUBIN UA (POCT) Negative 07/07/2024 KETONE UA (POCT) Negative 07/07/2024 SPECIFIC GRAVITY UA (POCT) >=1.030 07/07/2024 HEMOGLOBIN/BLOOD UA (POCT) Negative 07/07/2024 PH UA (POCT) 6.0 07/07/2024 PROTEIN UA (POCT) Trace 07/07/2024 UROBILINOGEN UA (POCT) 0.2 07/07/2024 NITRITE UA (POCT) Negative 07/07/2024 LEUKOCYTES UA (POCT) Negative 07/07/2024 COLOR UA (POCT) Yellow 07/07/2024 CLARITY UA (POCT) Clear 07/07/2024 Laboratory: Creatinine Date Value Ref Range Status 04/27/2024 0.79 0.58 - 0.96 mg/dL Final 10/31/2023 0.88 0.58 - 0.96 mg/dL Final 07/17/2023 0.89 0.58 - 0.96 mg/dL Final 07/18/2022 0.84 0.50 - 0.90 mg/dL Final Cultures: No data to display Susceptibility Tests - Past 1 Year No results found for the last 365 days. ASSESSMENT AND PLAN Rehan Eugene is 64 year old with: (N39.46) Urinary incontinence, mixed (primary encounter diagnosis) Medical records personally reviewed and found significant for: Cr As background copied from prior notes, changes made: 64 yo F with chronic stable DEVANTE, reporting BRENNA = UUI, frequency, urgency, nocturia x6-7, nocturnal enuresis. Wears 3ppd. Saw [facility] recommended sling, not done 2/2 insurance issues. Significant bother and worsening in past year especially . Had remote UTIs . Cr WNL 2024 Given bladder diary /hat. Returned and voids in daytime q10-270 min, nocturia x4 on this diary. Total UOP less accurate as she leaked before reaching toilet. Had strong urge and changing underwear/pads mulitple times/day. Cysto/pelvic, unable do full pelvic given difficulty positioning but on cysto, small capacity, strong urge after only filling to ~150cc and big leak with cough, Uroflow intermittent/saw tooth with good qmax but empties well . Plan: F/u to discuss next steps, potentially OAB med with PFPT or maybe UDS -Patient will call the clinic or use MyChart should anything change or any new issues arise -All questions were answered Sona Bruno DO Staff Urologist Please note: This note has been produced using speech recognition software and may contain errors related to that system including grammar, punctuation, spelling, gender and words (more content not included)... [facility] 07-24-2024 History of Presen t illness Narrative Images from the original note were not included. [facility] ESTABLISHED PATIENT NOTE/HISTORY AND PHYSICAL PATIENT: Rehan Eugene (64 year old) PCP: Kristyn Lopez MD DATE OF SERVICE: 07/24/2024 SUBJECTIVE: CHIEF COMPLAINT: Follow Up (Cystoscopy. ) HISTORY OF PRESENT ILLNESS: Recording using [employer] software for draft documentation of the visit was discussed with the patient/authorized employment representative; all questions welcomed and answered. Patient/authorized employment representative agreed to proceed The patient was last seen by Sona Bruno DO on 07/07/24 . Prior notes were reviewed. Patient returns today for follow up . In interim doing ok. The patient reports no changes since her last visit and denies current symptoms of a UTI. She has been using approximately 7 diapers per day. She brought a bladder diary to the appointment, noting that it may not be entirely accurate due to the frequency of her urinary episodes. She has been taking Keflex. She denies history of breast cancer, uterine cancer, or abnormal Pap smears. She is sexually active approximately twice a week and denies dyspareunia. Review of Symptoms: Genitourinary: See HPI Constitutional: unintentional weight loss - denies, fevers - denies Cardiovascular: new or worsening chest pain - denies Respiratory: new or worsening shortness of breath - denies Gastrointestinal: constipation - denies, vomiting - denies Hematologic/Lymphatic: easy bleeding or bruising - denies Past Medical History: -Patient has a past medical history of Arthritis and Asthma (HCC). Past Surgical History: -Patient has a past surgical history that includes knee surgery hx (Bilateral). Medications: -Patient has a current medication list which includes the following prescription(s): celecoxib, duloxetine, tizanidine, and prednisone. Allergies: -Patient has no known allergies. Family History: -Patient family history includes Cancer in her father. Social History: -Patient reports that she has never smoked. She has never used smokeless tobacco. She reports that she does not currently use alcohol. She reports current drug use. Drug: Marijuana. I have confirmed and edited as necessary, the PFSH and ROS obtained by others. OBJECTIVE: PHYSICAL EXAMINATION: BP 130/83 Pulse 97 LMP (LMP Unknown) Constitutional: Non-toxic , No acute distress. Psych: Calm, cooperative Eyes: Lids appear normal. Conjunctivae are not injected. Respiratory: No acute respiratory distress. No audible wheeze. : No [place] DATA: Clinic: Urine dipstick shows: URINALYSIS: GLUCOSE UA (POCT) Negative 07/07/2024 BILIRUBIN UA (POCT) Negative 07/07/2024 KETONE UA (POCT) Negative 07/07/2024 SPECIFIC GRAVITY UA (POCT) >=1.030 07/07/2024 HEMOGLOBIN/BLOOD UA (POCT) Negative 07/07/2024 PH UA (POCT) 6.0 07/07/2024 PROTEIN UA (POCT) Trace 07/07/2024 UROBILINOGEN UA (POCT) 0.2 07/07/2024 NITRITE UA (POCT) Negative 07/07/2024 LEUKOCYTES UA (POCT) Negative 07/07/2024 COLOR UA (POCT) Yellow 07/07/2024 CLARITY UA (POCT) Clear 07/07/2024 Laboratory: Creatinine Date Value Ref Range Status 04/27/2024 0.79 0.58 - 0.96 mg/dL Final 10/31/2023 0.88 0.58 - 0.96 mg/dL Final 07/17/2023 0.89 0.58 - 0.96 mg/dL Final 07/18/2022 0.84 0.50 - 0.90 mg/dL Final Cultures: No data to display Susceptibility Tests - Past 1 Year No results found for the last 365 days. ASSESSMENT AND PLAN Rehan Eugene is 64 year old with: (N39.46) Urinary incontinence, mixed (primary encounter diagnosis) Medical records personally reviewed and found significant for: Cr As background copied from prior notes, changes made: 64 yo F with chronic stable DEVANTE, reporting BRENNA = UUI, frequency, urgency, nocturia x6-7, nocturnal enuresis. Wears 3ppd. Saw [facility] recommended sling, not done 2/2 insurance issues. Significant bother and worsening in past year especially . Had remote UTIs . Cr WNL 2024 Given bladder diary /hat. Returned and voids in daytime q10-270 min, nocturia x4 on this diary. Total UOP less accurate as she leaked before reaching toilet. Had strong urge and changing underwear/pads mulitple times/day. Cysto/pelvic, unable do full pelvic given difficulty positioning but on cysto, small capacity, strong urge after only filling to ~150cc and big leak with cough, Uroflow intermittent/saw tooth with good qmax but empties well . Plan: F/u to discuss next steps, potentially OAB med with PFPT or maybe UDS -Patient will call the clinic or use [facility] should anything change or any new issues arise -All questions were answered Sona Bruno DO Staff Urologist Please note: This note has been produced using speech recognition software and may contain errors related to that system including grammar, punctuation, spelling, gender and words and phrases that may be inappropriate. documented in this encounter [facility] 07-24-2024 Instructions Sona Bruno DO - 07/24/2024 9:10 AM EDT CYSTOSCOPY The following instructions will help you know what to expect in the days following your procedure. Do not, however, hesitate to call if you have any questions or concerns. Procedure: You have undergone a cystoscopy procedure where a telescope was inserted into your bladder through your urethra Activities Resume usual activity Diet Resume your regular diet as tolerated. Maintain adequate fluid intake Avoid/Reduce: Caffeine!! It is a bladder irritant that causes frequent urination. Be on the alert for caffeine in the following products: Soft drinks, coffee, tea, chocolate, ice creams, puddings, candies, headache and pain relieving medications (Anacin , Excedrin , Vanquish , Midal , Darvon ), cold and allergy medications (Dristan , Coryban-D , Sinarest ), stimulants (No Doz , Vivarin , Dexatrim ). Intake of liquor, beer, wine (they cause urgency). What to Expect Blood in your urine - this is common and will improve Mild burning with urination When to present to the office/ER (ER after hours), if you: Have a fever above 100 degrees. Are unable to urinate. Pass large clots when you urinate. Have urine that becomes dark red bloody and does not clear with increased fluid intake. Have any increased pain, shortness of breath, chest pain, abnormal coughing, or any severe nausea and vomiting, unrelieved by rest or medications. documented in this encounter [facility] 07-24-2024 Note HNO ID: [id number] Author: SONA BRUNO DO Service: ? Author Type: Physician Type: Procedures Filed: 07/24/2024 13:38 Note Text: CYSTOSCOPY PROCEDURE NOTE: Rehan Eugene is a 64 year old female who presents for a cystoscopy. Pt ID verified with patient: Yes Procedure verified with patient: Yes Procedure confirmed with physician and network support specialist: Yes Fire Safety Check List Reviewed: Yes A urinalysis was not performed. Pre-procedure Diagnosis: mixed incontinence Post-procedure Diagnosis: Same as above Preprocedure antibiotics: Keflex 500 mg UNIVERSAL PROTOCOL / SAFETY CHECKLIST Procedure to be Performed: cysto Sign In: A Moment of CARE was completed. Appropriate PPE (Personal Protective Equipment) worn by all providers involved with the procedure. Special equipment not required. Patient/Surrogate Stated/Verified: Patient name, Date of , Relevant allergies, and The intended procedure Time Out: Relevant labs, photos, and/or imaging studies have been reviewed. Intended patient and procedure match the source document(s) (e.g. consent, HANDP, associated studies [imaging, pathology]) match the intended patient and procedure. Consent obtained and matches the intended procedure. Yes. Correct side/site is not applicable. Medications required for this procedure are verified. Fire risk assessed and is not applicable. Implants: are not applicable. Sign Out: Specimens not collected. All instruments, equipment, possible retained foreign bodies are accounted for. Yes. The post-procedure plan of care has been communicated to the patient or surrogate. The benefits, risks, alternatives of the cystoscopy procedure and personnel were discussed with the patient. The verbal consent was obtained and the patient agrees to proceed. Procedure: The patient was placed on the procedure table in the supine position and prepped and draped in the usual sterile fashion. The tip of the flexible cystoscope was carefully placed into the urethra under direct visual guidance. The scope was negotiated per urethra with no evidence of stricture into the bladder. Careful cross endoscopy was carried out. The posterior, superior and lateral sarmiento and dome of the bladder were all well visualized and the scope was retroflexed upon itself; the UOs were in orthotopic position. The findings were consistent with no bladder mucosal pathology (no trabeculations, cellules, masses, lesions, foreign bodies, etc). However, small capacity, strong urge after only filling to ~150cc At the conclusion of the procedure, the Flexible cystoscope was removed atraumatically. The patient tolerated the procedure without complications. Patient was given standard post-procedure instructions, and was directed to increase oral fluid intake as directed. Pelvic Exam: vulva signs of prior contact dermatitis on labia, groin, inner thigh Urethral meatus without prolapse, stenosis, or bleeding in supine position. no caruncle Urethra is hypermobile Cough stress test positive big leak Half-Speculum exam difficult poor patient positioning reveals vaginal tissues with Moderate atrophic changes. No abnormal discharge or lesion. Kegels not tested Medical resistor inspector present for exam: Awilda Shelton pt expressed verbal consent to proceed with sensitive exam Participation of a fellow, resident, medical student, or advanced practice provider student in performing the sensitive examination was discussed with the patient or authorized employment representative. The patient or authorized employment representative has agreed to proceed with the sensitive examination. (Sensitive examination includes inspection and/or palpation of the breasts, pelvis, prostate and anorectal regions) Uroflow : Patient voided volume: 220 ml over a total time of 21.4 s while in a sitting position The average flow rate was 12.3 mL/s (QAVG), reaching a maximum flow rate of 34.4 mL/s (QMAX) after a time of 7.5 s Post void residual 1 ml Curve: intermittent/saw tooth with good qmax but empties well , Sona Bruno [facility] 07-24-2024 Procedure note CYSTOSCOPY PROCEDURE NOTE: Rehan Eugene is a 64 year old female who presents for a cystoscopy. Pt ID verified with patient: Yes Procedure verified with patient: Yes Procedure confirmed with physician and network support specialist: Yes Fire Safety Check List Reviewed: Yes A urinalysis was not performed. Pre-procedure Diagnosis: mixed incontinence Post-procedure Diagnosis: Same as above Preprocedure antibiotics: Keflex 500 mg UNIVERSAL PROTOCOL / SAFETY CHECKLIST Procedure to be Performed: cysto Sign In: A Moment of CARE was completed. Appropriate PPE (Personal Protective Equipment) worn by all providers involved with the procedure. Special equipment not required. Patient/Surrogate Stated/Verified: Patient name, Date of , Relevant allergies, and The intended procedure Time Out: Relevant labs, photos, and/or imaging studies have been reviewed. Intended patient and procedure match the source document(s) (e.g. consent, H&P, associated studies [imaging, pathology]) match the intended patient and procedure. Consent obtained and matches the intended procedure. Yes. Correct side/site is not applicable. Medications required for this procedure are verified. Fire risk assessed and is not applicable. Implants: are not applicable. Sign Out: Specimens not collected. All instruments, equipment, possible retained foreign bodies are accounted for. Yes. The post-procedure plan of care has been communicated to the patient or surrogate. The benefits, risks, alternatives of the cystoscopy procedure and personnel were discussed with the patient. The verbal consent was obtained and the patient agrees to proceed. Procedure: The patient was placed on the procedure table in the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 ASSESSMENT AND PLAN Rehan Eugene is 64 year old with: (N39.46) Urinary incontinence, mixed (primary encounter diagnosis) (R35.1) Nocturia (N39.44) Nocturnal enuresis Medical records personally reviewed and found significant for: Cr 64 yo F in office to reestablish care for chronic DEVANTE, reporting BRENNA = UUI, frequency, urgency, nocturia x6-7, nocturnal enuresis. Wears 3ppd. [facility] recommended sling, not done 2/2 insurance issues. Significant bother and worsening in past year especially . Had remote UTIs . Cr WNL 2024 Given bladder diary /hat. Discussed next step cysto. Discussed minor risks of cystoscopy including infection, bleeding requiring catheter, and/or discomfort during urinating - which would likely be self-limiting. Pt understands these risks and elects to proceed Plan: Given bladder diary F/u cysto/pelvic/uroflow/PVR -Patient will call the clinic or use MyChart should anything change or any new issues arise -All questions were answered Sona Bruno DO Staff Urologist Consultation requested by Dr. Cr for an opinion regarding incontinence . My final recommendations will be communicated back to the requesting physician by way of shared medical record or letter via [place] mail Please note: This note has been produced using speech recognition software and may contain errors related to that system including grammar, punctuation, spelling, gender and words and phrases that may be inappropriate. documented in this encounter [facility] 06-23-2024 Note HNO ID: [id number] Author: CHANTAL YOUNG DO Service: ? Author Type: Physician Type: Progress Notes Filed: 06/23/2024 14:19 Note Text: Patient presents for urinary concerns Was seen at [facility] but could no longer be seen there due to insurance change She is leaking urine, reports constantly States she was put on a pill which helped some, no longer has that She does leak with laugh/cough/sneeze Does not feel she empties completely Drinks 2 Pepsis per day Stops drinking fluid around 8pm, bed at 11 pm Appears well, in no acute distress No increased respiratory effort Ambulating without difficulty Urethra without lesion, vaginal mucosa normal, cervix without lesion, sarmiento well supported ASSESSMENT/PLAN: 1. Mixed incontinence - ICD9: 788.33, ICD10: N39.46 (primary diagnosis) - CONSULT TO UROLOGY 2. Encounter for screening for malignant neoplasm of cervix - ICD9: V76.2, ICD10: Z12.4 - PAP TEST States she was supposed to have bladder sling surgery We discussed this is for BRENNA, not overactive bladder Should have urodynamics done to clarify the etiology Discussed I don't do slings anymore, partner does so she would follow up with Dr. Montesinos to discuss sling surgery if that is deemed necessary Chantal Young DO This visit was chaperoned by Chelsie I spent a total of 30 minutes on the date of the service which included preparing to see the patient, [id number] patient care, completing clinical documentation, obtaining and/or reviewing separately obtained history, performing a medically appropriate examination, counseling and educating the patient/family/caregiver, and ordering medications, tests, or procedures. [facility] 06-23-2024 History of Presen t illness Narrative Patient presents for urinary concerns Was seen at [place] but could no longer be seen there due to insurance change She is leaking urine, reports constantly States she was put on a pill which helped some, no longer has that She does leak with laugh/cough/sneeze Does not feel she empties completely Drinks 2 Pepsis per day Stops drinking fluid around 8pm, bed at 11 pm Appears well, in no acute distress No increased respiratory effort Ambulating without difficulty Urethra without lesion, vaginal mucosa normal, cervix without lesion, sarmiento well supported ASSESSMENT/PLAN: 1. Mixed incontinence - ICD9: 788.33, ICD10: N39.46 (primary diagnosis) - CONSULT TO UROLOGY 2. Encounter for screening for malignant neoplasm of cervix - ICD9: V76.2, ICD10: Z12.4 - PAP TEST States she was supposed to have bladder sling surgery We discussed this is for BRENNA, not overactive bladder Should have urodynamics done to clarify the etiology Discussed I don't do slings anymore, partner does so she would follow up with Dr. Montesinos to discuss sling surgery if that is deemed necessary Chantal Young DO This visit was chaperoned by Chelsie I spent a total of 30 minutes on the date of the service which included preparing to see the patient, [id number] patient care, completing clinical documentation, obtaining and/or reviewing separately obtained history, performing a medically appropriate examination, counseling and educating the patient/family/caregiver, and ordering medications, tests, or procedures. documented in this encounter [facility] 04-27-2024 Note HNO ID: [id number] Author: ENA LYNN CT Service: ? Author Type: Clinical Dormitory Keeper Type: Progress Notes Filed: 04/27/2024 12:58 Note Text: Radiology Service Progress Note DATE OF SERVICE: April 27, 2024 TIME: 12:55 PM PATIENT IDENTITY VERIFICATION COMPLETED USING TWO (2) STANDARD IDENTIFIERS: Name and Date of confirmed by patient verbally and Name and Date of confirmed by identification band. FALL SCREENING: Has the patient had 2 falls in the last year or 1 fall with injury or currently using an Ambulatory Assistive Device (Walker, Cane, Wheelchair, Crutches, etc.)? Emergency Room Patient: Screened in ED PATIENT GENDER DATA: Assigned female at . status: : No status: NO. PATIENT RELEVANT IMPLANT DATA REVIEWED: Not Applicable PATIENT PRESENTS WITH AN IMPLANTABLE OR ATTACHED HOME DEMONSTRATION AGENT: No ALLERGIES: Reviewed and unchanged CONTRAST ALLERGY: NO. EXAM: CT -CONTRAST INDUCED NEPHROPATHY RISK FACTORS: Patient age > 60 years CREATININE: Creatinine Date Value Ref Range Status 04/27/2024 0.79 0.58 - 0.96 mg/dL Final 10/31/2023 0.88 0.58 - 0.96 mg/dL Final 07/17/2023 0.89 0.58 - 0.96 mg/dL Final Estimated Glomerular Filtration Rate Date Value Ref Range Status 04/27/2024 83 >=60 mL/min/1.73m? Final Comment: Estimated Glomerular Filtration Rate (eGFR) is calculated using the 2020 CKD-EPI creatinine equation. This equation utilizes serum creatinine, sex, and age as parameters. The creatinine assay has traceable calibration to isotope dilution-mass spectrometry. Refer to KDIGO guidelines for clinical interpretation. In patients with unstable renal function, e.g. those with acute kidney injury, the eGFR may not accurately reflect actual GFR. eGFR- Date Value Ref Range Status 07/18/2022 > 60 ml/min/1.73m2 Final Comment: eGFR >= 60 Indicates normal kidney function. * eGFR IS AN ESTIMATE * (AFR CURT = ) (non-AFR AM = NON-) MDRD calculation used in the eGFR should not be used to dose medications. For further limitations of the eGFR please refer to the Physician Website or the National Kidney Disease Education Program website (www.nkdep.nih.gov). P.O.C.T. RESULTS: POC done: Yes, See Lab Tab April 27, 2024 TREATMENT: N/A and No Hydration needed. PERIPHERAL IV DATA: Ambulatory: A peripheral IV was started in the Right antecubital site with a Angio cath: 20 gauge. RADIOLOGY DEPARTMENT: CT; Exam(s) Completed: PE Study SIGNATURE: Ena Lynn CT, CT PATIENT NAME: Rehan Eugene DATE: April 27, 2024 TIME: 12:55 PM [facility] 04-27-2024 Note HNO ID: [id number] Author: LAWANDA BASS RT(R) Service: ? Author Type: Technologist Type: Progress Notes Filed: 04/27/2024 11:34 Note Text: Radiology Service Progress Note PATIENT NAME: Rehan Eugene DATE OF SERVICE: April 27, 2024 TIME: 11:34 AM PATIENT IDENTITY VERIFICATION COMPLETED USING TWO (2) IDENTIFIERS: Name and Date of confirmed by patient verbally. FALL SCREENING: Has the patient had 2 falls in the last year or 1 fall with injury or currently using an Ambulatory Assistive Device (Walker, Cane, Wheelchair, Crutches, etc.)? Emergency Room Patient: Screened in ED PATIENT GENDER DATA: Assigned female at . status: : No status: NO. PATIENT RELEVANT IMPLANT DATA REVIEWED: Yes PATIENT PRESENTS WITH AN IMPLANTABLE OR ATTACHED HOME DEMONSTRATION AGENT: No RADIOLOGY DEPARTMENT: CT; Exam(s) Completed: Brain PERIPHERAL IV DATA: Not applicable SIGNED BY: RT Rebel(Oseas) April 27, 2024 11:34 AM [facility] 04-27-2024 Note HNO ID: [id number] Author: NADJA CABRERA RT(R) Service: Radiology Author Type: Technologist Type: Progress Notes Filed: 04/27/2024 10:53 Note Text: Radiology Service Progress Note PATIENT NAME: Rehan Eugene DATE OF SERVICE: April 27, 2024 TIME: 10:53 AM PATIENT IDENTITY VERIFICATION COMPLETED USING TWO (2) IDENTIFIERS: Name and Date of confirmed by patient verbally. FALL SCREENING: Has the patient had 2 falls in the last year or 1 fall with injury or currently using an Ambulatory Assistive Device (Walker, Cane, Wheelchair, Crutches, etc.)? Emergency Room Patient: Screened in ED PATIENT GENDER DATA: Assigned female at . status: : No status: NO. PATIENT RELEVANT IMPLANT DATA REVIEWED: Not Applicable PATIENT PRESENTS WITH AN IMPLANTABLE OR ATTACHED HOME DEMONSTRATION AGENT: No RADIOLOGY DEPARTMENT: General X-ray: Exam(s) Completed: Chest X-Ray PERIPHERAL IV DATA: Not applicable SIGNED BY: RT Chauncey(R) April 27, 2024 10:53 AM [facility] 11-01-2023 Note HNO ID: [id number] Author: ENA LYNN CT Service: ? Author Type: Clinical Dormitory Keeper Type: Progress Notes Filed: 11/01/2023 00:16 Note Text: Radiology Service Progress Note PATIENT NAME: Rehan Eugene DATE OF SERVICE: November 01, 2023 TIME: 12:16 AM PATIENT IDENTITY VERIFICATION COMPLETED USING TWO (2) IDENTIFIERS: Name and Date of confirmed by patient verbally and Name and Date of confirmed by identification band. FALL SCREENING: Has the patient had 2 falls in the last year or 1 fall with injury or currently using an Ambulatory Assistive Device (Walker, Cane, Wheelchair, Crutches, etc.)? Emergency Room Patient: Screened in ED PATIENT GENDER DATA: Female. status: : No status: NO. PATIENT RELEVANT IMPLANT DATA REVIEWED: Not Applicable PATIENT PRESENTS WITH AN IMPLANTABLE OR ATTACHED HOME DEMONSTRATION AGENT: No RADIOLOGY DEPARTMENT: CT; Exam(s) Completed: Abdomen/Pelvis PERIPHERAL IV DATA: Not applicable SIGNED BY: REX Tucker, CT November 01, 2023 12:16 AM [facility] 10-31-2023 Note HNO ID: [id number] Author: NADJA ACBRERA RT(R) Service: Radiology Author Type: Technologist Type: Progress Notes Filed: 10/31/2023 23:57 Note Text: Radiology Service Progress Note PATIENT NAME: Rehan Eugene DATE OF SERVICE: October 31, 2023 TIME: 11:56 PM PATIENT IDENTITY VERIFICATION COMPLETED USING TWO (2) IDENTIFIERS: Name and Date of confirmed by patient verbally. FALL SCREENING: Has the patient had 2 falls in the last year or 1 fall with injury or currently using an Ambulatory Assistive Device (Walker, Cane, Wheelchair, Crutches, etc.)? Inpatient: Screened on floor PATIENT GENDER DATA: Female. status: : No status: NO. PATIENT RELEVANT IMPLANT DATA REVIEWED: Not Applicable PATIENT PRESENTS WITH AN IMPLANTABLE OR ATTACHED HOME DEMONSTRATION AGENT: No RADIOLOGY DEPARTMENT: General X-ray: Exam(s) Completed: Chest X-Ray PERIPHERAL IV DATA: Not applicable SIGNED BY: RT Chauncey(R) October 31, 2023 11:56 PM [facility] 07-14-2023 Note . MICRO - Microbiology PROCEDURE: Urine Culture [*1] SOURCE: Urine, Clean Catch BODY SITE: COLLECTED DATE/TIME: 07/11/2023 13:24 EDT RECEIVED DATE/TIME: 07/12/2023 07:09 EDT START DATE/TIME: 07/12/2023 07:09 EDT FREE TEXT SOURCE: FINAL REPORTS Final Report [] Verified Date/Time/Personnel: 07/14/2023 08:13 EDT >100,000 cfu/ml Escherichia coli PRELIMINARY REPORTS Preliminary Report [] Verified Date/Time/Personnel: 07/13/2023 11:30 EDT >100,000 cfu/ml Escherichia coli MARK to follow SUSCEPTIBILITY RESULTS Escherichia coli Antibiotic MARK Dilut MARK Inter Ampicillin <=8 Susceptible Ampicillin/ <=4/2 Susceptible Sulbactam Aztreonam <=4 Susceptible Cefazolin <=2 Susceptible Ciprofloxacin <=0.25 Susceptible Ertapenem <=0.5 Susceptible Gentamicin <=2 Susceptible ID Panel Not Not Applicable Applicable Imipenem <=1 Susceptible Levofloxacin <=0.5 Susceptible Meropenem <=1 Susceptible Minocycline <=4 Susceptible Nitrofurantoin <=32 Susceptible Trimethoprim/ <=0.5/9.5 Susceptible Sulfa Performing Locations *1: This test was performed at: [facility], [address] [place] [address], [id number] , [facility] ([place]) 12-17-2021 Miscellaneous Notes Pt. Returned my call from yesterday about xray results. Aware to follow up with primary care. Verbalizes understanding documented in this encounter [facility] 12-16-2021 Miscellaneous Notes Called and left voicemail for her to return my call about her xray results tomorrow and that we return at 0800. documented in this encounter [facility] 12-16-2021 Note HNO ID: [id number] Author: Caroline Buckley APRN.CNP Service: ? Author Type: Nurse Practitioner Type: Progress Notes Filed: 12/16/2021 2:07 PM Note Text: [facility] Caroline Buckley APRN.CNP REFERRING PROVIDER: Damaso Rehan Eugene is a 61 year old female who is here for evaluation of neck and back pain. History of Illness Since Last Visit: Patient presents with complaints of acute neck pain after a fall from a ladder 4 days ago. She was cleaning at home and changing curtains. While she was standing on a stepladder she lost balance and fell backwards. She estimates she fell about 5 feet. She landed flat on her upper lower back. She states her head did hit the floor last. She has no supraspinous tenderness on exam of the neck. She complains of some tingling and numbness in the left shoulder and down the left arm. Pain is mild. The majority of her pain is located along the upper and mid lower back. She does have some edema of the upper back. There is no obvious signs of trauma or abrasions on the back. She has tenderness with palpation over the lower back. With movement she complains of sharp stabbing pains down the left leg. She is complaining of numbness of both first toes. She states back pain is located along the bra line down to the lower lumbar bikini region. She denies any abdominal pain or discomfort. She denies any chest wall discomfort. She complains of pain with bending and twisting. She does have a history of incontinence, but states its been slightly worse the last couple of days since the fall. She complains of lower back discomfort when she is trying to bear down for bowel movement. Expressed concern that [facility]. Suggested patient go to the emergency department for further evaluation, but she refuses at this time. She is concerned about [id number] cost. She voices understanding that imaging is limited and she could benefit from CT or MRI evaluation. HISTORY PAST MEDICAL HISTORY Diagnosis Date Arthritis Asthma PAST SURGICAL HISTORY Procedure Laterality Date KNEE SURGERY HX Bilateral Social History Tobacco Use Smoking status: Never Smokeless tobacco: Never Vaping Use Vaping Use: Never used Substance Use Topics Alcohol use: Not Currently ALLERGIES: ALLERGIES No Known Allergies MEDICATIONS: Current Outpatient Medications Medication Sig DULoxetine (CYMBALTA) 20 mg capsule Take 20 mg by mouth twice daily. tiZANidine (ZANAFLEX) 4 mg tablet Take 1 tablet by mouth three times daily. predniSONE (DELTASONE) 20 mg tablet Take 1 tablet by mouth twice daily. No current facility-administered medications for this visit. IMMUNIZATIONS: There is no immunization history on file for this patient. REVIEW OF SYSTEMS Review of Systems Constitutional: Negative for chills, diaphoresis, fatigue, fever and unexpected weight change. HENT: Negative for congestion, dental problem, ear pain, postnasal drip, rhinorrhea, sinus pressure, sinus pain, sore throat and trouble swallowing. Eyes: Negative for photophobia, pain, discharge, itching and visual disturbance. Respiratory: Negative for apnea, cough, chest tightness, shortness of breath, wheezing and stridor. Cardiovascular: Negative for chest pain, palpitations and leg swelling. Gastrointestinal: Negative for abdominal distention, abdominal pain, blood in stool, constipation, diarrhea, nausea and vomiting. Endocrine: Negative for polydipsia, polyphagia and polyuria. Genitourinary: Negative for difficulty urinating, dysuria, flank pain and hematuria. Incontinence Musculoskeletal: Positive for back pain, gait problem, joint swelling and neck pain. Negative for arthralgias and myalgias. Skin: Negative for color change, pallor, rash and wound. Allergic/Immunologic: Negative for environmental allergies and food allergies. Neurological: Positive for numbness (tingling down left arm / shoulder, bilateral lower extremities (1st toe each foot)). Negative for dizziness, syncope, weakness, light-headedness and headaches. Hematological: Negative for adenopathy. Does not bruise/bleed easily. Psychiatric/Behavioral: Negative for agitation, behavioral problems, confusion and suicidal ideas. Vital Signs: BP 133/74 Pulse 103 Temp (Src) 99.1 (Oral) Ht 5' 4 (1.63m) Wt 270 lb (122.5kg) SpO2 95% BMI 46.32 kg/(m2). Physical Exam Constitutional: Appearance: Normal appearance. She is morbidly obese. HENT: Head: Normocephalic and atraumatic. Nose: Nose normal. Eyes: Extraocular Movements: Extraocular movements intact. Pupils: Pupils are equal, round, and reactive to light. Pulmonary: Effort: Pulmonary effort is normal. Abdominal: General: Bowel sounds are normal. Palpations: Abdomen is soft. Musculoskeletal: General: Swelling (upper thoracic area above bra line) and tenderness (upper thorac (more content not included)... [facility] 12-16-2021 Instructions Caroline Buckley APRN.PARTS ROOM ASSOCIATE - 12/16/2021 1:57 PM EDT I am sending a prednisone taper and zanaflex (muscle relaxer to start). Continue with rest and gradual increase activities as tolerated. I do want you to get a follow up with your family physician in the next 2 - 3 days. If symptoms do not improve, you will need to have additional imaging studies. Please go to ED if you develop any worsening symptoms, loss of bowel or bladder control. EMERGENCY DEPARTMENT LOW BACK PAIN GENERAL INFORMATION: Low back pain is located in the small of the back. The pain may be related to sprained muscles or ligaments, to muscle spasms, or to herniation of a spinal disc. There are many possible causes of back pain, but the most common causes are gradual wear and tear, physical and emotional stress, and weak or tense muscles from lack of proper exercise. The pain can develop quickly or overnight and may be caused by unusual exertion such as moving furniture or heavy lifting. Low back pain can be severe, and sometimes you may be unable to move without pain. INSTRUCTIONS: 1. During the first 24 hours, apply ice packs to your back for 10-20 minutes 3 to 4 times a day. Put the ice in a plastic bag and place a towel between the bag of ice and your skin. After 24 hours, apply heat to your back with a heating pad set on low or a warm water bottle for 30 minutes every 3 to 4 hours. A gentle massage and warm showers may also be helpful. 2. Stay in bed for 1 to 2 days. Then begin normal activities as you can tolerate without causing pain. 3. Bend at the hips and knees; never bend from the waist only. Lift with your legs, not your back. 4. Sleep on a firm mattress or put a to 1 inch piece of plywood between the mattress and box springs. Do not use a waterbed because it does not support your back correctly. Sleep with a pillow under your knees or sleep on your side with your knees bent. 5. Wear low-heeled shoes. 6. If you are overweight, losing weight will help prevent another attack. 7. Begin a program of back exercises to prevent future episodes of pain. Walking, swimming, and bicycling are good exercise. Avoid exercises that put stress on the back, such as rowing and jogging. CONTACT YOUR DOCTOR OR RETURN TO THE ED IF: 1. You have shooting pains into your buttocks, groin, or legs. 2. You have difficulty urinating or lose control of bowel or bladder function. 3. You have numbness or weakness in your legs or feet. documented in this encounter [facility] 12-16-2021 Nurse Note 4 VIEW CERVICAL SPINE x-ray performed @ [facility] RT Jonh(R) 2 VIEW THORACIC SPINE x-ray performed @ [facility] RT Jonh(R) 4 VIEW LUMBAR SPINE x-ray performed @ [facility] RT Jonh(R) documented in this encounter [facility] 12-16-2021 History of Presen t illness Narrative [facility] Caroline Buckley APRN.PARTS ROOM ASSOCIATE REFERRING PROVIDER: Damaso Rehan Eugene is a 61 year old female who is here for evaluation of neck and back pain. History of Illness Since Last Visit: Patient presents with complaints of acute neck pain after a fall from a ladder 4 days ago. She was cleaning at home and changing curtains. While she was standing on a stepladder she lost balance and fell backwards. She estimates she fell about 5 feet. She landed flat on her upper lower back. She states her head did hit the floor last. She has no supraspinous tenderness on exam of the neck. She complains of some tingling and numbness in the left shoulder and down the left arm. Pain is mild. The majority of her pain is located along the upper and mid lower back. She does have some edema of the upper back. There is no obvious signs of trauma or abrasions on the back. She has tenderness with palpation over the lower back. With movement she complains of sharp stabbing pains down the left leg. She is complaining of numbness of both first toes. She states back pain is located along the bra line down to the lower lumbar bikini region. She denies any abdominal pain or discomfort. She denies any chest wall discomfort. She complains of pain with bending and twisting. She does have a history of incontinence, but states its been slightly worse the last couple of days since the fall. She complains of lower back discomfort when she is trying to bear down for bowel movement. Expressed concern that imaging capabilities [facility] at [facility] are limited. Suggested patient go to the emergency department for further evaluation, but she refuses at this time. She is concerned about [id number]-ujepny cost. She voices understanding that imaging is limited and she could benefit from CT or MRI evaluation. HISTORY PAST MEDICAL HISTORY Diagnosis Date Arthritis Asthma PAST SURGICAL HISTORY Procedure Laterality Date KNEE SURGERY HX Bilateral Social History Tobacco Use Smoking status: Never Smokeless tobacco: Never Vaping Use Vaping Use: Never used Substance Use Topics Alcohol use: Not Currently ALLERGIES: ALLERGIES No Known Allergies MEDICATIONS: Current Outpatient Medications Medication Sig DULoxetine (CYMBALTA) 20 mg capsule Take 20 mg by mouth twice daily. tiZANidine (ZANAFLEX) 4 mg tablet Take 1 tablet by mouth three times daily. predniSONE (DELTASONE) 20 mg tablet Take 1 tablet by mouth twice daily. No current facility-administered medications for this visit. IMMUNIZATIONS: There is no immunization history on file for this patient. REVIEW OF SYSTEMS Review of Systems Constitutional: Negative for chills, diaphoresis, fatigue, fever and unexpected weight change. HENT: Negative for congestion, dental problem, ear pain, postnasal drip, rhinorrhea, sinus pressure, sinus pain, sore throat and trouble swallowing. Eyes: Negative for photophobia, pain, discharge, itching and visual disturbance. Respiratory: Negative for apnea, cough, chest tightness, shortness of breath, wheezing and stridor. Cardiovascular: Negative for chest pain, palpitations and leg swelling. Gastrointestinal: Negative for abdominal distention, abdominal pain, blood in stool, constipation, diarrhea, nausea and vomiting. Endocrine: Negative for polydipsia, polyphagia and polyuria. Genitourinary: Negative for difficulty urinating, dysuria, flank pain and hematuria. Incontinence Musculoskeletal: Positive for back pain, gait problem, joint swelling and neck pain. Negative for arthralgias and myalgias. Skin: Negative for color change, pallor, rash and wound. Allergic/Immunologic: Negative for environmental allergies and food allergies. Neurological: Positive for numbness (tingling down left arm / shoulder, bilateral lower extremities (1st toe each foot)). Negative for dizziness, syncope, weakness, light-headedness and headaches. Hematological: Negative for adenopathy. Does not bruise/bleed easily. Psychiatric/Behavioral: Negative for agitation, behavioral problems, confusion and suicidal ideas. Vital Signs: BP 133/74 Pulse 103 Temp (Src) 99.1 (Oral) Ht 5' 4 (1.63m) Wt 270 lb (122.5kg) SpO2 95% BMI 46.32 kg/(m^2). Physical Exam Constitutional: Appearance: Normal appearance. She is morbidly obese. HENT: Head: Normocephalic and atraumatic. Nose: Nose normal. Eyes: Extraocular Movements: Extraocular movements intact. Pupils: Pupils are equal, round, and reactive to light. Pulmonary: Effort: Pulmonary effort is normal. Abdominal: General: Bowel sounds are normal. Palpations: Abdomen is soft. Musculoskeletal: General: Swelling (upper thoracic area above bra line) and tenderness (upper thoracic above bra line, mid lumbar) present. No deformity or signs of injury. Cervical back: Normal range of motion and neck supple. No rigidity or tenderness. Comments: Cane for ambulation Neurological: General: No focal deficit present. Mental Status: She is alert and oriented to person, place, and time. Mental status is at baseline. Sensory: No sensory deficit. Gait: Gait abnormal (cane to ambulate). Psychiatric: Mood and Affect: Mood normal. Behavior: Behavior normal. Thought Content: Thought content normal. Judgment: Judgment normal. DATA REVIEW Cervical / Thoracic / Lumbar Imagin12/16/21 - Oximetry : 95% saturated at rest on room air. ASSESSMENT/PLAN: 1. Acute midline low back pain with bilateral sciatica - ICD9: 724.2, 724.3, ICD10: M54.42, M54.41 (primary diagnosis) Lumbosacral sprain - Bedrest for 2-3 days - Ice for localized tenderness - Warm moist heat for 20 min three times a day - Prednisone burst- see orders - Muscle relaxant- see orders - Xrays- see orders - Patient given instructions intermittent rest - Follow up in 3 days or sooner if symptoms persist or worsen - XR LUMBAR PARS DEFECT 4V AP/LAT/BOTH OBL - XR THORACIC LIMITED 2V AP/LAT 2. Neck pain, acute - ICD9: 723.1, ICD10: M54.2 - XR CERV OTHER 4V AP/LAT/OBL Caroline Buckley (Electronically signed expedite mailing) FOLLOW UP: Return if symptoms worsen or fail to improve. This note was generated with voice recognition software and may contain errors including spelling, grammar, and syntax and mis-recognition of what was dictated that are not fully corrected. documented in this encounter [facility] Evaluation + Plan note Future Appointments Appointment Date:08/26/2023 02:30:00 PM Scheduled Provider:CURRY HAYWARD Location:UROLOGY Appointment Type:URO OV Future Scheduled TestsCT Abdomen and Pelvis w/ contrast 07/11/23 [facility] Evaluation + Plan note Future Appointments Appointment Date:08/26/2023 02:30:00 PM Scheduled Provider:CURRY HAYWARD Location:UROLOGY Appointment Type:URO [facility] Evaluation + Plan note Future Appointments Appointment Date:10/08/2023 01:00:00 PM Scheduled Provider:JOSE MARTINEZ DO Location:UROLOGY Appointment Type:URO [facility] Evaluation note Diagnosis Acute midline low back pain with bilateral sciatica- Primary Neck pain, acute Cervicalgia documented in this encounter [facility] note* Diagnosis Mixed incontinence- Primary Mixed incontinence urge and stress (male)(female) Encounter for screening for malignant neoplasm of cervix Screening for malignant neoplasm of the cervix documented in this encounter [facility] note* Diagnosis Urinary incontinence, mixed- Primary Mixed incontinence urge and stress (male)(female) Nocturia Nocturnal enuresis History of UTI Personal history of urinary (tract) infection documented in this encounter [facility] note* Diagnosis Urinary incontinence, mixed- Primary Mixed incontinence urge and stress (male)(female) Nocturia Nocturnal enuresis History of UTI Personal history of urinary (tract) infection documented in this encounter [facility] note* Diagnosis Urinary incontinence, mixed- Primary Mixed incontinence urge and stress (male)(female) Nocturia documented in this encounter [facility] course Narrative No data available for this section [facility] Hospital Discharge instructions No data available for this section [facility] Progress note No data available for this section [facility] Reason for referral (narrative)* Diagnostic Procedure Only (Routine) - Pending Review Specialty Diagnoses / Procedures Referred By Contac t Referred To Contact XR IMAGING Diagnoses Acute midline low back pain with bilateral sciatica Procedures XR THORACIC LIMITED 2V AP/LAT RADEX SPINE THORACIC 2 VIEWS Caroline Buckley APRN.CNP [address] [place] [address] Xr Imaging Referral ID Status Reason Start Date Expiration Date Visits Requested Visits Authorized [id number] Pending Review Auto-Generat ed Referral 12/16/2021 01/15/2023 1 1 * Diagnostic Procedure Only (Routine) - Pending Review Specialty Diagnoses / Procedures Referred By Contac t Referred To Contact XR IMAGING Diagnoses Acute midline low back pain with bilateral sciatica Procedures XR LUMBAR PARS DEFECT 4V AP/LAT/BOTH OBL RADEX SPINE LUMBOSACRAL MINIMUM 4 VIEWS Caroline Buckley APRN.[employer]S ROOM ASSOCIATE [address] [place] [address] Xr Imaging Referral ID Status Reason Start Date Expiration Date Visits Requested Visits Authorized [id number] Pending Review Auto-Generat ed Referral 12/16/2021 01/15/2023 1 1 * Diagnostic Procedure Only (Routine) - Pending Review Specialty Diagnoses / Procedures Referred By Contac t Referred To Contact XR IMAGING Diagnoses Neck pain, acute Procedures XR CERV OTHER 4V AP/LAT/OBL RADEX SPINE CERVICAL 4 OR 5 VIEWS Caroline Buckley APRN.[employer] ASSOCIATE [address] [place] [address] Xr Imaging Referral ID Status Reason Start Date Expiration Date Visits Requested Visits Authorized [id number] Pending Review Auto-Generat ed Referral 12/16/2021 01/15/2023 1 1 [facility] Summary Purpose Family History No Family History Records FoundNo Family History Records FoundNo Family History Records FoundNo Family History Records Found No data available for this section No data available for this section No data available for this section No Family History Records FoundNo Family History Records FoundNo Family History Records Found Advance Directives No Advanced Directives Records FoundNo Advanced Directives Records FoundNo Advanced Directives Records FoundNo Advanced Directives Records FoundNo Advanced Directives Records FoundNo Advanced Directives Records FoundNo Advanced Directives Records Found Additional Source Comments INFORMATION SOURCE (unrecogn ized section and content) DATE CREATED AUTHOR 03/19/2018 [facility] DATE CREATED AUTHOR AUTHOR'S ORGANIZ ATION 05/17/2021 [facility] DATE CREATED AUTHOR AUTHOR'S ORGANIZ ATION 12/25/2021 [facility] DATE CREATED AUTHOR AUTHOR'S ORGANIZ ATION 07/24/2022 [facility] DATE CREATED AUTHOR AUTHOR'S ORGANIZ ATION 09/17/2023 [facility] ([facility]) DATE CREATED AUTHOR AUTHOR'S ORGANIZ ATION 08/27/2024 [facility] DATE CREATED AUTHOR AUTHOR'S ORGANIZ ATION 09/08/2024 [facility] Source Comments (unrecognize d section and content) In the event this informatio n is protected by the Federal Confidentiality of Alcohol and Drug Abuse Patient Records regulations: The Federal rules restrict any use of the information to criminally investigate or prosecute any alcohol or drug abuse patient.[facility] the event this information is protected by the Federal Confidentiality of Alcohol and Drug Abuse Patient Records regulations: The Federal rules restrict any use of the information to criminally investigate or prosecute any alcohol or drug abuse patient.[facility] the event this information is protected by the Federal Confidentiality of Alcohol and Drug Abuse Patient Records regulations: The Federal rules restrict any use of the information to criminally investigate or prosecute any alcohol or drug abuse patient.[facility] the event this information is protected by the Federal Confidentiality of Alcohol and Drug Abuse Patient Records regulations: The Federal rules restrict any use of the information to criminally investigate or prosecute any alcohol or drug abuse patient.[facility] the event this information is protected by the Federal Confidentiality of Alcohol and Drug Abuse Patient Records regulations: The Federal rules restrict any use of the information to criminally investigate or prosecute any alcohol or drug abuse patient.[facility] the event this information is protected by the Federal Confidentiality of Alcohol and Drug Abuse Patient Records regulations: The Federal rules restrict any use of the information to criminally investigate or prosecute any alcohol or drug abuse patient.[facility] the event this information is protected by the Federal Confidentiality of Alcohol and Drug Abuse Patient Records regulations: The Federal rules restrict any use of the information to criminally investigate or prosecute any alcohol or drug abuse patient.[facility] the event this information is protected by the Federal Confidentiality of Alcohol and Drug Abuse Patient Records regulations: The Federal rules restrict any use of the information to criminally investigate or prosecute any alcohol or drug abuse patient.[facility] the event this information is protected by the Federal Confidentiality of Alcohol and Drug Abuse Patient Records regulations: The Federal rules restrict any use of the information to criminally investigate or prosecute any alcohol or drug abuse patient.[facility] the event this information is protected by the Federal Confidentiality of Alcohol and Drug Abuse Patient Records regulations: The Federal rules restrict any use of the information to criminally investigate or prosecute any alcohol or drug abuse patient.[facility] the event this information is protected by the Federal Confidentiality of Alcohol and Drug Abuse Patient Records regulations: The Federal rules restrict any use of the information to criminally investigate or prosecute any alcohol or drug abuse patient.[facility] the event this information is protected by the Federal Confidentiality of Alcohol and Drug Abuse Patient Records regulations: The Federal rules restrict any use of the information to criminally investigate or prosecute any alcohol or drug abuse patient.[facility] the event this information is protected by the Federal Confidentiality of Alcohol and Drug Abuse Patient Records regulations: The Federal rules restrict any use of the information to criminally investigate or prosecute any alcohol or drug abuse patient.[facility] Reason for Visit (unrecogniz ed section and content) Reason Comments Back Pain Pt states she fell f rom a ladder x 4 days and now has back and neck pain. Pt states she has tingling in her toes and numbness in her hands. Pt states she also has not control over her bladder and has difficulty taking a deep breath. Reason Comments Results Reason Comments Incontinence Patient wants to william k about a bladder sling - was seen at [facility] for this but they stopped taking her insurance Reason Comments Consult Patient states that she has incontinence for the past year. She states that it happens all the time and will go through 3 diapers at night. She denies any pain/burning with urination. She will stop drinking liquids after 8 pm. Denies any hematuria. She feels that she gets up 7 times at night. Specialty Diagnoses / Procedures Referred By Tim smith Referred To Contact Urology Diagnoses Mixed incontinence Procedures CONSULT TO UROLOGY OFFICE/OUTPATIENT [facility] 60 MINUTES Chantal Young, [facility] [place] [address] Phone: tel: fax: Referral ID Status Reason Start Date Expiration Date V isits Requested Visits Authorized [id number] Closed PCP Requested Referral 06/23/2024 06/23/2025 1 1 Reason Comments Follow Up Cystoscopy. Reason Comments Follow Up Patient has no new c omplaints and states that she did complete diary. Patient Care team informatio n (unrecognized section and content) Graphic Coordinator Relationship Specialty Start Date End Date Kristyn Lopez MD [address] [place] [address] PCP - General Family Medicine 11/01/23 Graphic Coordinator Relationship Specialty Start Date End Date Kristyn Lopez MD [address] [place] [address] PCP - General Family Medicine 11/01/23 Graphic Coordinator Relationship Specialty Start Date End Date Kristyn Lopez MD [address] [place] [address] PCP - General Family Medicine 11/01/23 Graphic Coordinator Relationship Specialty Start Date End Date Kristyn Lopez MD [address] [place] [address] PCP - General Family Medicine 11/01/23 Graphic Coordinator Relationship Specialty Start Date End Date Kristyn Lopez MD [address] [place] [address] PCP - General Family Medicine 11/01/23 Graphic Coordinator Relationship Specialty Start Date End Date Kristyn Lopez MD [address] [place] [address] PCP - General Family Medicine 11/01/23 FOR RECORDS PERTAINING TO PATIENTS WHO ARE OR HAVE BEEN ENROLLED IN A CHEMICAL DEPENDENCY/SUBSTANCEABUSE PROGRAM, SOME INFORMATION MAY BE OMITTED. This clinical summary was aggregated from multiple sources. Caution should be exercised in using it in the provision of clinical care. This summary normalizes information from multiple sources, and as a consequence, information in this document may materially change the coding, format and clinical context of patient data. In addition, data may be omitted in some cases. CLINICAL DECISIONS SHOULD BE BASED ON THE PRIMARY CLINICAL RECORDS. [facility] [email or web address] [facility]. provides no warranty or guarantee of the accuracy or completeness of information in this document.
== END | disposition home or self-care (01) ==
PROVIDERS: PCP Family Medicine; Visit Provider Family Medicine
DX: E11.9 Type 2 diabetes mellitus without complications (principal); F32.9 Major depressive disorder, single episode, unspecified
CPT/HCPCS: 36415; 80053; 80061; 82043; 82570; 84443; 85025